=== PATIENT | female | born 1950 | race Caucasian/White ===

== ENCOUNTER 2019-12-27 17:24 | Emergency (ER) | payer MEDICARE ==
[~2019-12-27] VITALS: Ht 172.7 cm; Wt 104.3 kg
[2019-12-27 17:24] VITALS: BP_SYST 150
[2019-12-27] MEDS ORDERED: NACL 0.9% 1,000 ML IV ONE (17:29)
[2019-12-27 18:15] LABS: BASOPHILS % (AUTO) 0.7 % (0.0-2.0); EOSINOPHILS % (AUTO) 0.5 % (0.0-4.0); HEMATOCRIT 32.1 % (36-48); HEMOGLOBIN 10.3 g/dL (12.0-16.0); LYMPHOCYTES # (AUTO) 0.9 K/uL (1.0-5.5); LYMPHOCYTES % (AUTO) 14.1 % (20.5-51.5); MEAN CORPUSCULAR HEMOGLOBIN 28 pg (27-31); MEAN CORPUSCULAR HGB CONC 32 % (32-36); MEAN CORPUSCULAR VOLUME 88 fL (79.0-98.0); MONOCYTES # (AUTO) 0.7 K/uL (0.0-1.0); NEUTROPHILS # (AUTO) 4.9 K/uL (1.8-7.7); NEUTROPHILS % (AUTO) 74.7 % (40.0-70.0); PLATELET COUNT (AUTO) 262 K/uL (130-430); RED BLOOD CELL COUNT(AUTO) 3.66 MIL/uL (4.2-6.2); RED CELL DISTRIBUTION WIDTH 17.2 % (9.0-15.0); WHITE BLOOD COUNT (AUTO) 6.5 K/uL (4.8-10.8)
[2019-12-27 18:36] LABS: CALCIUM 9.6 mg/dL (8.4-11.0); CREATININE 2.54 mg/dL (0.55-1.30); POTASSIUM 3.9 mmol/L (3.5-5.1)
[2019-12-27 18:39] LABS: INR 3.3 (0.8-1.2)
[2019-12-27 18:42] LABS: TOTAL BILIRUBIN 0.8 mg/dL (0.0-1.0)
[2019-12-27 18:43] LABS: PROTHROMBIN TIME 32.4 SECS (9.5-12.5)
[2019-12-27 18:54] LABS: BILIRUBIN,URINE NEGATIVE (NEGATIVE); BLOOD, URINE 1+ (NEGATIVE); CLARITY/URINE CLEAR (CLEAR); COLOR,URINE YELLOW (YELLOW); GLUCOSE,URINE NEGATIVE (NEGATIVE); KETONES,URINE NEGATIVE (NEGATIVE); LEUKOCYTE ESTERASE ,URINE NEGATIVE (NEGATIVE); NITRITE, URINE NEGATIVE (NEGATIVE); PROTEIN URINE TRACE (NEGATIVE); UROBILINOGEN,URINE 0.2 (0.2-1.0)
[2019-12-27] MEDS ORDERED: FUROSEMIDE 40 MG/4 ML VIAL IVP ONE (19:15)
[2019-12-27] MEDS ORDERED: KETOROLAC TROMETHAMINE 30 MG VIAL IVP ONE (19:15)
[2019-12-27 19:28] LABS: BACTERIA,URINE FEW /HPF (None Seen); WBC,URINE 0-3 /HPF (0-3)
[2019-12-27 19:29] LABS: MUCUS,URINE None Seen /LPF (None Seen)
[2019-12-27 22:03] VITALS: BP_SYST 127
== END 2019-12-27 22:03 | disposition short-term general hospital (02) ==
LOC: SED 17:24
DX: I13.0 Hypertensive heart and chronic kidney disease with heart failure and stage 1 through stage 4 chronic kidney disease, or unspecified chronic kidney disease (principal); E11.22 Type 2 diabetes mellitus with diabetic chronic kidney disease; N18.9 Chronic kidney disease, unspecified; I50.9 Heart failure, unspecified; M79.18 Myalgia, other site; I48.91 Unspecified atrial fibrillation; E78.00 Pure hypercholesterolemia, unspecified; Z86.79 Personal history of other diseases of the circulatory system; Z90.49 Acquired absence of other specified parts of digestive tract; Z91.030 Bee allergy status
CPT/HCPCS: 36415; 71045; 80053; 81000; 82150; 82550; 83690; 83880; 84484; 85025; 85610; 85730; 86710; 87040; 93005; 96374; 96375; 99285; J1885; J1940; J7030

== ENCOUNTER 2020-01-16 06:37 | Emergency (ER) | payer MEDICARE ==
[~2020-01-16] VITALS: Ht 160 cm; Wt 87.1 kg
[2020-01-16 06:40] VITALS: BP_SYST 138
--- NOTE | 2020-01-16 06:45 | NUR ---
Patient to ER bed 6 to gown for evaluation. Side rails up.
--- NOTE | 2020-01-16 06:47 | NUR ---
Pt BIBA from boarding / assisted private home ( pt does not know the name ) to ED C/O L leg pain knee and below. Hx PNA, DMII, and Renal Disease. L arm has shunt but has not started any HD yet. No other complaints noted VSS no s/s of acute distress Resting on gurney rails up
--- NOTE | 2020-01-16 06:47 | NUR ---
Dr. Kessler bedside for pt eval
[2020-01-16] MEDS ORDERED: MORPHINE 2 MG/ML INJ. SYRINGE IVP ONE (07:00)
[2020-01-16] MEDS ORDERED: PRO10 PO (07:05)
[2020-01-16] MEDS ORDERED: LIP80 PO (07:06)
[2020-01-16] MEDS ORDERED: METO50TA7 PO (07:06)
[2020-01-16] MEDS ORDERED: DILT30TA36 PO (07:07)
[2020-01-16] MEDS ORDERED: FURO80TA86 PO (07:07)
[2020-01-16] MEDS ORDERED: HYDR-4272 PO (07:07)
[2020-01-16] MEDS ORDERED: AMI200 PO (07:08)
[2020-01-16] MEDS ORDERED: HYDR-4038 PO (07:08)
[2020-01-16] MEDS ORDERED: POTA10TA PO (07:08)
[2020-01-16] MEDS ORDERED: LEVO88TA5 PO (07:09)
[2020-01-16] MEDS ORDERED: CHOL100062 PO (07:10)
[2020-01-16] MEDS ORDERED: WARF5TAB2 PO (07:10)
--- NOTE | 2020-01-16 07:20 | NUR ---
report received stella Thayer RN. Pt in stable condition
--- NOTE | 2020-01-16 07:35 | NUR ---
# 22 gauge angiocath placed to right wrist. Use of asceptic technique. Opsite placed over site. Blood return noted. Blood for lab drawn from site. Flushed with 10 cc of normal saline. No evidence of infiltration noted. Patient tolerated well.
--- NOTE | 2020-01-16 07:45 | NUR ---
x-ray at the bedside.
--- NOTE | 2020-01-16 07:45 | NUR ---
medicated pt w/ IV Morphine. Will reassess
[2020-01-16 08:24] LABS: BASOPHILS # (AUTO) 0.1 K/uL (0.0-0.2); BASOPHILS % (AUTO) 1.2 % (0.0-2.0); EOSINOPHILS # (AUTO) 0.1 K/uL (0.0-0.4); EOSINOPHILS % (AUTO) 1.4 % (0.0-4.0); HEMATOCRIT 33.7 % (36-48); HEMOGLOBIN 10.9 g/dL (12.0-16.0); LYMPHOCYTES # (AUTO) 1.5 K/uL (1.0-5.5); MEAN CORPUSCULAR HEMOGLOBIN 29 pg (27-31); MEAN CORPUSCULAR HGB CONC 32 % (32-36); MEAN CORPUSCULAR VOLUME 88 fL (79.0-98.0); MONOCYTES # (AUTO) 0.9 K/uL (0.0-1.0); MONOCYTES % (AUTO) 14.5 % (1.7-9.3); NEUTROPHILS # (AUTO) 3.7 K/uL (1.8-7.7); NEUTROPHILS % (AUTO) 58.9 % (40.0-70.0); PLATELET COUNT (AUTO) 265 K/uL (130-430); RED BLOOD CELL COUNT(AUTO) 3.83 MIL/uL (4.2-6.2); RED CELL DISTRIBUTION WIDTH 17.4 % (9.0-15.0); WHITE BLOOD COUNT (AUTO) 6.3 K/uL (4.8-10.8)
[2020-01-16 08:38] LABS: ANION GAP 11 (5-15); CALCIUM 9.1 mg/dL (8.4-11.0); CHLORIDE 103 mmol/L (98-107); CREATININE 2.94 mg/dL (0.55-1.30); GLUCOSE 116 mg/dL (70-99); POTASSIUM 3.9 mmol/L (3.5-5.1); SODIUM SERUM 140 mmol/L (136-145); UREA NITROGEN, BLOOD 39 mg/dL (8-21)
[2020-01-16 08:40] LABS: GFR AFRICAN AMERICAN 20 mL/min (>90); INR 1.7 (0.8-1.2); PROTHROMBIN TIME 16.9 SECS (9.5-12.5)
[2020-01-16 08:41] LABS: ALANINE AMINOTRANSFERASE 25 U/L (12-78); ALBUMIN 2.9 g/dL (3.4-4.8); ASPARTATE AMINOTRANSFERASE 27 U/L (10-37); TOTAL BILIRUBIN 0.6 mg/dL (0.0-1.0)
[2020-01-16] MEDS ORDERED: ONDANSETRON 4 MG ODT TAB PO ONE (09:00)
--- NOTE | 2020-01-16 09:30 | NUR ---
DR FONG SPEAKING WITH DR [facility]
--- NOTE | 2020-01-16 09:30 | NUR ---
# 22 gauge angiocath placed to right chest. Use of asceptic technique. Opsite placed over site. Blood return noted. Blood for lab drawn from site. Flushed with 10 cc of normal saline. No evidence of infiltration noted. Patient tolerated well.
[2020-01-16] MEDS ORDERED: FUROSEMIDE 20 MG/2 ML VIAL IVP ONE (10:00)
--- NOTE | 2020-01-16 10:16 | NUR ---
Patient recieved lasix IVP. Will continue to monitor.
[2020-01-16 10:38] VITALS: BP_SYST 113
--- NOTE | 2020-01-16 10:43 | NUR ---
Patient to be transferred to [facility] ED. Is being transferred due to higher level of care. Receiving facility has accepting physician and available space. ER physician has signed transfer form. Patient or responsible democrat has agreed to transfer and signed form. Patient belongings inventoried and will be sent with patient. Copy of nursing notes, lab reports, EKG, Physicians Orders and X-rays to be sent with patient. Report called to Hilda at receiving facility. Receiving physician is Dr. Nascimento. [facility] ambulance service has been called for transfer. ETA is 1100.
[2020-01-16] MEDS ORDERED: MORPHINE 4 MG/ML INJ. SYRINGE IM ONE (10:45)
--- NOTE | 2020-01-16 10:54 | NUR ---
Pt currently being transported by day care center director
== END 2020-01-16 10:38 | disposition short-term general hospital (02) ==
LOC: SED 06:37
DX: I11.0 Hypertensive heart disease with heart failure (principal); I50.9 Heart failure, unspecified; E11.29 Type 2 diabetes mellitus with other diabetic kidney complication; N28.9 Disorder of kidney and ureter, unspecified; E78.00 Pure hypercholesterolemia, unspecified; I48.91 Unspecified atrial fibrillation; Z91.030 Bee allergy status
CPT/HCPCS: 36415; 71045; 73564; 80053; 83880; 84484; 85025; 85610; 85730; 93005; 93971; 96374; 96375; 96376; 99285; J1940; J2270 ×2; Q0162

== ENCOUNTER 2020-02-21 20:50 | Inpatient (IN) | payer MEDICARE, SELFPAY ==
[~2020-02-21] VITALS: Ht 160 cm; Wt 78.5 kg
[~2020-02-21 20:50] MED LIST: AMI200 PO; CHOL100062 PO; DILT30TA36 PO; FURO80TA86 PO; HYDR-4038 PO; HYDR-4272 PO; LEVO88TA5 PO; LIP80 PO; METO50TA7 PO; POTA10TA PO; PRO10 PO; WARF5TAB2 PO
[2020-02-21 20:52] VITALS: BP_SYST 131
[2020-02-21] MEDS ORDERED: MORPHINE 2 MG/ML INJ. SYRINGE IVP ONE (21:15)
[2020-02-21 21:53] LABS: BILIRUBIN,URINE NEGATIVE (NEGATIVE); CLARITY/URINE CLEAR (CLEAR); COLOR,URINE YELLOW (YELLOW); GLUCOSE,URINE NEGATIVE (NEGATIVE); KETONES,URINE NEGATIVE (NEGATIVE); LEUKOCYTE ESTERASE ,URINE NEGATIVE (NEGATIVE); NITRITE, URINE NEGATIVE (NEGATIVE); PROTEIN URINE NEGATIVE (NEGATIVE); UROBILINOGEN,URINE 0.2 (0.2-1.0)
[2020-02-21 22:07] LABS: CALCIUM 11.1 mg/dL (8.4-11.0); CREATININE 2.59 mg/dL (0.55-1.30); POTASSIUM 4.2 mmol/L (3.5-5.1)
[2020-02-21 22:13] LABS: ALBUMIN 2.2 g/dL (3.4-4.8); TOTAL BILIRUBIN 0.5 mg/dL (0.0-1.0)
[2020-02-21 22:15] LABS: BLOOD, URINE TRACE (NEGATIVE)
[2020-02-21] MEDS ORDERED: KETAMINE 30 MG/3 ML SYRINGE 30 MG in NS 100 ML IV ONE (22:30)
[2020-02-21 22:34] LABS: BACTERIA,URINE RARE /HPF (None Seen); RBC,URINE 0-3 /HPF (0-3); WBC,URINE NONE SEEN /HPF (0-3)
[2020-02-21] MEDS ORDERED: KETAMINE 30 MG/3 ML SYRINGE 15 MG in NS 100 ML IV ONE (22:45)
[2020-02-21] MEDS ORDERED: PIPERACILLIN/TAZO 3.375 GM in NS 50 ML IV ONE (22:45)
[2020-02-21 22:50] LABS: BASOPHILS # (AUTO) 0.1 K/uL (0.0-0.2); HEMOGLOBIN 10.5 g/dL (12.0-16.0); MONOCYTES # (AUTO) 0.6 K/uL (0.0-1.0); MONOCYTES % (AUTO) 13.8 % (1.7-9.3); NEUTROPHILS # (AUTO) 2.7 K/uL (1.8-7.7); WHITE BLOOD COUNT (AUTO) 4.5 K/uL (4.8-10.8)
[2020-02-21 22:53] LABS: BASOPHILS % (AUTO) 2.2 % (0.0-2.0); EOSINOPHILS # (AUTO) 0.2 K/uL (0.0-0.4); EOSINOPHILS % (AUTO) 5.5 % (0.0-4.0); HEMATOCRIT 32.5 % (36-48); LYMPHOCYTES # (AUTO) 0.9 K/uL (1.0-5.5); LYMPHOCYTES % (AUTO) 19.2 % (20.5-51.5); MEAN CORPUSCULAR HEMOGLOBIN 27 pg (27-31); MEAN CORPUSCULAR HGB CONC 32 % (32-36); MEAN CORPUSCULAR VOLUME 84 fL (79.0-98.0); NEUTROPHILS % (AUTO) 59.3 % (40.0-70.0); PLATELET COUNT (AUTO) 311 K/uL (130-430); RED BLOOD CELL COUNT(AUTO) 3.85 MIL/uL (4.2-6.2); RED CELL DISTRIBUTION WIDTH 16.1 % (9.0-15.0)
[2020-02-21] MEDS ORDERED: KETAMINE 30 MG/3 ML SYRINGE ONE (23:03)
[2020-02-21] MEDS ORDERED: PIPERACILLIN/TAZOBACTAM 3.375 GM/VIAL (ZOSYN) IV ONE (23:20)
[2020-02-21 23:30] LABS: INR 1.3 (0.8-1.2); PROTHROMBIN TIME 13.3 SECS (9.5-12.5)
[2020-02-22] VITALS (7 sets, daily range): BP systolic 102–114
[2020-02-22] MEDS ORDERED: ACETAMINOPHEN 325 MG TABLET PO PRN ×2 (00:15→09:45)
[2020-02-22] MEDS ORDERED: cefTRIAXone 1 GM IVPB PREMIX 50 ML IV SCH (00:15)
[2020-02-22] MEDS ORDERED: HYDROcodone/ACETAMIN 5-325 MG TAB (NORCO/ VICODIN) PO PRN ×2 (00:15→16:15)
[2020-02-22] MEDS ORDERED: INSULIN REGULAR, HUMAN 100 UNITS/ML, 10 ML VIAL (humuLIN R) SUBCUT PRN (00:15)
[2020-02-22] MEDS ORDERED: MORPHINE 2 MG/ML INJ. SYRINGE IVP PRN (00:15)
[2020-02-22] MEDS ORDERED: AZITHROMYCIN 500 MG in NS 250 ML IV SCH (00:15)
[2020-02-22] MEDS ORDERED: OXYC-128 PO (01:02)
[2020-02-22] MEDS ORDERED: BISA10SU61 RC (01:05)
[2020-02-22] MEDS ORDERED: PSYL1PAC8 PO (01:14)
[2020-02-22] MEDS ORDERED: POLY17PO4 PO (01:15)
[2020-02-22] MEDS ORDERED: PRED10TA PO (01:19)
[2020-02-22] MEDS ORDERED: COLC0.6T67 PO (01:20)
[2020-02-22] MEDS ORDERED: ACET-73 PO (01:22)
[2020-02-22] MEDS ORDERED: TOPXL100 PO (01:29)
[2020-02-22] MEDS ORDERED: MULT-1089 PO (01:30)
[2020-02-22] MEDS ORDERED: PATANOL OP (01:32)
[2020-02-22] MEDS ORDERED: XALEYE OP (01:32)
[2020-02-22] MEDS ORDERED: CHOL100034 PO (01:34)
[2020-02-22] MEDS ORDERED: PIPERACILLIN/TAZOBACTAM 3.375 GM/VIAL (ZOSYN) IV ONE (03:25)
[2020-02-22] MEDS: PIPERACILLIN/TAZO 3.375/DEX-IS 50 ML IV SCH ×3 (05:45→22:45)
[2020-02-22] MEDS ORDERED: LEVOTHYROXINE SODIUM 0.088 MG TABLET PO SCH (06:00)
[2020-02-22] MEDS ORDERED: hydrALAZINE HCL 25 MG TABLET PO SCH (09:00)
[2020-02-22] MEDS ORDERED: FLUoxetine HCL 10 MG CAPSULE (PROzac) PO SCH (09:00)
[2020-02-22] MEDS ORDERED: DILTIAZEM HCL 30 MG TABLET PO SCH (09:00)
[2020-02-22] MEDS ORDERED: AMIODARONE HCL 200 MG TABLET PO SCH (09:00)
[2020-02-22] MEDS ORDERED: METOPROLOL SUCCINATE 50 MG TAB.SR.24H (TOPROL XL) PO SCH (09:00)
[2020-02-22] MEDS ORDERED: FUROSEMIDE 80 MG TABLET PO SCH (09:00)
[2020-02-22] MEDS ORDERED: BISACODYL 10 MG/SUPPOSITORY RC PRN (09:45)
[2020-02-22] MEDS ORDERED: OXYCODONE/ACETAMINOPHEN 5-325 TABLET PO PRN (09:45)
[2020-02-22] MEDS ORDERED: ONDANSETRON HCL 4 MG/2 ML VIAL IVP PRN ×2 (09:45→16:15)
[2020-02-22] MEDS ORDERED: ALBUTEROL MDI INHALATION 8 GM INH INH PRN (09:45)
[2020-02-22] MEDS ORDERED: CHOLECALCIFEROL (VITAMIN D3) 2,000 UNIT TABLET PO ONE (10:30)
[2020-02-22] MEDS ORDERED: POLYETHYLENE GLYCOL 3350, 17 GM/ POWD.PACK PO ONE (10:30)
[2020-02-22] MEDS ORDERED: ENOXAPARIN SODIUM 30 MG/0.3 ML SYRINGE SUBCUT ONE (10:30)
[2020-02-22] MEDS ORDERED: MULTIVITAMINS TAB 1 TABLET PO ONE (10:30)
[2020-02-22] MEDS ORDERED: POTASSIUM CHLORIDE 10 MEQ TAB.PRT.SR PO ONE (10:30)
[2020-02-22] MEDS ORDERED: COLCHICINE 0.6 MG TABLET PO ONE (10:30)
[2020-02-22] MEDS ORDERED: PREDNISONE 20 MG TABLET PO ONE (10:30)
[2020-02-22] MEDS ORDERED: FAMOTIDINE 20 MG TABLET PO ONE (10:30)
[2020-02-22] MEDS ORDERED: METOPROLOL SUCCINATE 50 MG TAB.SR.24H (TOPROL XL) PO ONE (11:00)
[2020-02-22] MEDS: NAPHAZOLINE HCL/PHENIRAMINE 15 ML OPHT. DROPS OP SCH ×2 (11:28→22:45)
[2020-02-22] MEDS: LATANOPROST 2.5 ML DROPS (XALATAN) OP SCH (11:29)
[2020-02-22] MEDS: AZITHROMYCIN 250 MG in NS 250 ML IV SCH (11:34)
[2020-02-22] MEDS ORDERED: ACETAMINOPHEN 500 MG TABLET PO PRN (16:15)
[2020-02-22] MEDS ORDERED: ALBUTEROL SULFATE 0.083% 2.5 MG/3 ML VIAL.NEB INH PRN (16:15)
[2020-02-22] MEDS ORDERED: LORazepam 2 MG/ML VIAL IVP PRN (16:15)
[2020-02-22] MEDS ORDERED: WARFARIN SODIUM 5 MG TABLET PO SCH (18:00)
[2020-02-22] MEDS ORDERED: ATORVASTATIN 20 MG TABLET PO SCH (18:00)
[2020-02-22] MEDS: IPRATROPIUM BROM 0.5 MG/2.5 ML VIAL.NEB (ATROVENT) INH SCH ×2 (20:08→23:11)
[2020-02-22] MEDS: NORMAL SALINE 5 ML DISP.SYRIN IVF SCH (22:45)
[2020-02-22] MEDS: METOPROLOL SUCCINATE 50 MG TAB.SR.24H (TOPROL XL) PO SCH (23:20)
[2020-02-22] MEDS: HYDROcodone/ACETAMIN 10-325 MG TAB PO PRN (23:20)
[2020-02-22] MEDS: POTASSIUM CHLORIDE 10 MEQ TAB.PRT.SR PO SCH (23:20)
[2020-02-23 00:05] VITALS: BP_SYST 115
[2020-02-23] MEDS: IPRATROPIUM BROM 0.5 MG/2.5 ML VIAL.NEB (ATROVENT) INH SCH ×5 (03:00→19:37)
[2020-02-23] MEDS: PIPERACILLIN/TAZO 3.375/DEX-IS 50 ML IV SCH (06:10)
[2020-02-23] MEDS: HYDROcodone/ACETAMIN 10-325 MG TAB PO PRN ×2 (06:10→19:12)
[2020-02-23] MEDS: NORMAL SALINE 5 ML DISP.SYRIN IVF SCH ×2 (06:15→14:30)
[2020-02-23] MEDS ORDERED: PREDNISONE 20 MG TABLET PO SCH ×2 (07:45→09:00)
[2020-02-23 07:54] LABS: BASOPHILS # (AUTO) 0.1 K/uL (0.0-0.2); BASOPHILS % (AUTO) 1.6 % (0.0-2.0); EOSINOPHILS % (AUTO) 0.1 % (0.0-4.0); HEMATOCRIT 31.8 % (36-48); HEMOGLOBIN 10.3 g/dL (12.0-16.0); LYMPHOCYTES # (AUTO) 0.9 K/uL (1.0-5.5); LYMPHOCYTES % (AUTO) 23.3 % (20.5-51.5); MEAN CORPUSCULAR HEMOGLOBIN 27 pg (27-31); MEAN CORPUSCULAR HGB CONC 32 % (32-36); MEAN CORPUSCULAR VOLUME 85 fL (79.0-98.0); MONOCYTES # (AUTO) 0.3 K/uL (0.0-1.0); MONOCYTES % (AUTO) 8.5 % (1.7-9.3); NEUTROPHILS # (AUTO) 2.7 K/uL (1.8-7.7); NEUTROPHILS % (AUTO) 66.5 % (40.0-70.0); PLATELET COUNT (AUTO) 368 K/uL (130-430); RED BLOOD CELL COUNT(AUTO) 3.75 MIL/uL (4.2-6.2); RED CELL DISTRIBUTION WIDTH 16.1 % (9.0-15.0)
[2020-02-23 07:59] LABS: C-REACTIVE PROTEIN QUANT 6.6 mg/dL (0-0.5); CALCIUM 10.9 mg/dL (8.4-11.0); CREATININE 2.91 mg/dL (0.55-1.30); PHOSPHORUS 4.9 mg/dL (2.7-4.5); POTASSIUM 4.3 mmol/L (3.5-5.1); TOTAL BILIRUBIN 0.3 mg/dL (0.0-1.0)
[2020-02-23 08:00] VITALS: BP_SYST 104
[2020-02-23 08:47] LABS: ERYTHROCYTE SEDIMENTATION RATE 91 MM/HR (0-20)
[2020-02-23] MEDS: POTASSIUM CHLORIDE 10 MEQ TAB.PRT.SR PO SCH ×2 (08:59→20:12)
[2020-02-23] MEDS ORDERED: PSYLLIUM HUSK 1 PKT PACKET PO SCH (09:00)
[2020-02-23] MEDS ORDERED: ENOXAPARIN SODIUM 30 MG/0.3 ML SYRINGE SUBCUT SCH (09:00)
[2020-02-23] MEDS ORDERED: CHOLECALCIFEROL (VITAMIN D3) 2,000 UNIT TABLET PO SCH ×2 (09:00)
[2020-02-23] MEDS ORDERED: FAMOTIDINE 20 MG TABLET PO SCH (09:00)
[2020-02-23] MEDS ORDERED: MULTIVITAMINS TAB 1 TABLET PO SCH (09:00)
[2020-02-23] MEDS ORDERED: COLCHICINE 0.6 MG TABLET PO SCH (09:00)
[2020-02-23] MEDS ORDERED: POLYETHYLENE GLYCOL 3350, 17 GM/ POWD.PACK PO SCH (09:00)
[2020-02-23] MEDS: METOPROLOL SUCCINATE 50 MG TAB.SR.24H (TOPROL XL) PO SCH ×2 (09:01→20:12)
[2020-02-23] MEDS: LATANOPROST 2.5 ML DROPS (XALATAN) OP SCH (09:01)
[2020-02-23] MEDS: NAPHAZOLINE HCL/PHENIRAMINE 15 ML OPHT. DROPS OP SCH ×2 (09:02→20:13)
[2020-02-23] MEDS: AZITHROMYCIN 250 MG in NS 250 ML IV SCH (11:34)
[2020-02-23 12:00] VITALS: BP_SYST 106
[2020-02-23] MEDS ORDERED: cefTRIAXone 1 GM in D5W 50 ML IV SCH (13:30)
[2020-02-23] MEDS ORDERED: NACL 0.9% 1,000 ML IV SCH (15:37)
[2020-02-23 16:29] VITALS: BP_SYST 114
[2020-02-23 17:58] VITALS: BP_SYST 114
[2020-02-23 19:30] VITALS: BP_SYST 130
== END 2020-02-23 20:34 | disposition short-term general hospital (02) | DRG 177 ==
LOC: SED 20:50 → STU 23:18 → EEVIPCON 23:18 → STU 23:42 → SMU 02-23 14:27 → STU 02-23 16:58
PROVIDERS: ADMIT Preventive Medicine Preventive Medicine/Occupational Environmental Medicine; ATTEND Preventive Medicine Preventive Medicine/Occupational Environmental Medicine
DX: J69.0 Pneumonitis due to inhalation of food and vomit (principal); J96.01 Acute respiratory failure with hypoxia; R65.11 Systemic inflammatory response syndrome (SIRS) of non-infectious origin with acute organ dysfunction; N17.9 Acute kidney failure, unspecified; E87.1 Hypo-osmolality and hyponatremia; I13.0 Hypertensive heart and chronic kidney disease with heart failure and stage 1 through stage 4 chronic kidney disease, or unspecified chronic kidney disease; I42.9 Cardiomyopathy, unspecified; D68.9 Coagulation defect, unspecified; E03.9 Hypothyroidism, unspecified; E11.22 Type 2 diabetes mellitus with diabetic chronic kidney disease; E66.9 Obesity, unspecified; E78.00 Pure hypercholesterolemia, unspecified; E78.5 Hyperlipidemia, unspecified; E83.52 Hypercalcemia; I48.0 Paroxysmal atrial fibrillation; I50.9 Heart failure, unspecified; M10.9 Gout, unspecified; M17.11 Unilateral primary osteoarthritis, right knee; Z96.651 Presence of right artificial knee joint; E83.41 Hypermagnesemia; E83.39 Other disorders of phosphorus metabolism; E11.65 Type 2 diabetes mellitus with hyperglycemia; M25.462 Effusion, left knee; F29 Unspecified psychosis not due to a substance or known physiological condition; N18.9 Chronic kidney disease, unspecified; I45.81 Long QT syndrome; G89.29 Other chronic pain; R74.0 Nonspecific elevation of levels of transaminase and lactic acid dehydrogenase [LDH]; Z20.828 Contact with and (suspected) exposure to other viral communicable diseases; Z79.01 Long term (current) use of anticoagulants; Z86.73 Personal history of transient ischemic attack (TIA), and cerebral infarction without residual deficits; Z91.030 Bee allergy status; Z88.8 Allergy status to other drugs, medicaments and biological substances; Z68.30 Body mass index [BMI] 30.0-30.9, adult; Z79.1 Long term (current) use of non-steroidal anti-inflammatories (NSAID); Z79.899 Other long term (current) drug therapy
CPT/HCPCS: 36415; 36600; 71045; 73564; 80053; 81000-TC; 82550-TC; 82728; 82803-TC; 83605; 83615-TC; 83735-TC; 83880; 84100-TC; 84484; 85025; 85379; 85384-TC; 85610-TC; 85651-TC; 85730-TC; 86140; 86710; 87040-TC; 87081; 87086; 93005; 93306; 94640; 94760; 96365; 96375; 99291; G0378; J0456; J0696; J1650; J2270; J2405; J2543; J7030; J7050; J7060; J7512; U0002; U0003-CS

== ENCOUNTER 2021-01-03 09:02 | Emergency (ER) | payer MEDICARE, SELFPAY ==
[~2021-01-03] VITALS: Ht 160 cm; Wt 79.4 kg
[2021-01-03 09:02] VITALS: BP_SYST 142
[~2021-01-03 09:02] MED LIST changes: +ACET-73 PO; -AMI200 PO; +AMIO200T66 PO; +BISA10SU61 RC; +CHOL100034 PO; +COLC0.6T67 PO; -METO50TA7 PO; +MULT-1089 PO; +OXYC-128 PO; +PATANOL OP; +POLY17PO4 PO; +PRED10TA PO; +PSYL1PAC8 PO; +TOPXL100 PO; +XALEYE OP
[2021-01-03 10:07] LABS: BASOPHILS # (AUTO) 0.1 K/uL (0.0-0.2); BASOPHILS % (AUTO) 2.4 % (0.0-2.0); EOSINOPHILS # (AUTO) 0.4 K/uL (0.0-0.4); EOSINOPHILS % (AUTO) 8.5 % (0.0-4.0); HEMATOCRIT 29.2 % (36-48); HEMOGLOBIN 9.7 g/dL (12.0-16.0); LYMPHOCYTES # (AUTO) 0.9 K/uL (1.0-5.5); LYMPHOCYTES % (AUTO) 18.4 % (20.5-51.5); MEAN CORPUSCULAR HEMOGLOBIN 32 pg (27-31); MEAN CORPUSCULAR HGB CONC 33 % (32-36); MEAN CORPUSCULAR VOLUME 96 fL (79.0-98.0); MONOCYTES # (AUTO) 0.4 K/uL (0.0-1.0); MONOCYTES % (AUTO) 8.4 % (1.7-9.3); NEUTROPHILS # (AUTO) 3.1 K/uL (1.8-7.7); NEUTROPHILS % (AUTO) 62.3 % (40.0-70.0); PLATELET COUNT (AUTO) 211 K/uL (130-430); RED BLOOD CELL COUNT(AUTO) 3.05 MIL/uL (4.2-6.2); RED CELL DISTRIBUTION WIDTH 13.9 % (9.0-15.0)
[2021-01-03 10:17] LABS: ANION GAP 11 (5-15); CALCIUM 9.7 mg/dL (8.4-11.0); CHLORIDE 103 mmol/L (98-107); CREATININE 3.83 mg/dL (0.55-1.30); GLUCOSE 145 mg/dL (70-99); SODIUM SERUM 139 mmol/L (136-145); UREA NITROGEN, BLOOD 71 mg/dL (8-21)
[2021-01-03 10:20] LABS: INR 1.1 (0.8-1.2); PROTHROMBIN TIME 11.2 SECS (9.5-12.5)
[2021-01-03 10:26] LABS: ALANINE AMINOTRANSFERASE 14 U/L (12-78); ALBUMIN 2.8 g/dL (3.4-4.8); ASPARTATE AMINOTRANSFERASE 13 U/L (10-37); LIPASE 135 U/L (73-393); TOTAL BILIRUBIN 0.3 mg/dL (0.0-1.0)
[2021-01-03] MEDS: ASPIRIN 81 MG TAB.CHEW PO ONE (10:30)
[2021-01-03 10:33] LABS: BILIRUBIN,URINE NEGATIVE (NEGATIVE); CLARITY/URINE CLEAR (CLEAR); COLOR,URINE YELLOW (YELLOW); GLUCOSE,URINE NEGATIVE (NEGATIVE); KETONES,URINE NEGATIVE (NEGATIVE); LEUKOCYTE ESTERASE ,URINE NEGATIVE (NEGATIVE); NITRITE, URINE NEGATIVE (NEGATIVE); PH,URINE 5.5 (5.0-8.0); PROTEIN URINE TRACE (NEGATIVE); UROBILINOGEN,URINE 0.2 (0.2-1.0)
[2021-01-03 10:54] LABS: BLOOD, URINE TRACE (NEGATIVE)
[2021-01-03 11:03] LABS: BACTERIA,URINE FEW /HPF (None Seen); COARSE GRANULAR CASTS,URINE 0-10 /LPF (None Seen); WBC,URINE 0-3 /HPF (0-3)
[2021-01-03 14:40] VITALS: BP_SYST 128
== END 2021-01-03 14:40 | disposition designated cancer center or children's hospital (05) ==
LOC: SED 09:02
DX: J96.01 Acute respiratory failure with hypoxia (principal); N19 Unspecified kidney failure; Z20.822 Contact with and (suspected) exposure to COVID-19
CPT/HCPCS: 36415; 71045; 80053; 81000-TC; 82962; 83690-TC; 83880; 84484; 85025; 85610-TC; 93005; 99285

== ENCOUNTER 2021-01-07 20:21 | Emergency (ER) | payer MEDICARE, SELFPAY ==
[~2021-01-07] VITALS: Ht 160 cm; Wt 44.5 kg
[2021-01-07 20:33] VITALS: BP_SYST 131
[2021-01-07 21:19] LABS: ANION GAP 8 (5-15); CALCIUM 9.7 mg/dL (8.4-11.0); CHLORIDE 97 mmol/L (98-107); CREATININE 2.03 mg/dL (0.55-1.30); GLUCOSE 146 mg/dL (70-99); POTASSIUM 3.3 mmol/L (3.5-5.1); SODIUM SERUM 140 mmol/L (136-145); UREA NITROGEN, BLOOD 11 mg/dL (8-21)
[2021-01-07 21:22] LABS: BASOPHILS # (AUTO) 0.1 K/uL (0.0-0.2); BASOPHILS % (AUTO) 1.5 % (0.0-2.0); EOSINOPHILS # (AUTO) 0.3 K/uL (0.0-0.4); EOSINOPHILS % (AUTO) 6.2 % (0.0-4.0); HEMATOCRIT 31.6 % (36-48); HEMOGLOBIN 10.3 g/dL (12.0-16.0); LYMPHOCYTES # (AUTO) 0.9 K/uL (1.0-5.5); LYMPHOCYTES % (AUTO) 16.2 % (20.5-51.5); MEAN CORPUSCULAR HEMOGLOBIN 31 pg (27-31); MEAN CORPUSCULAR HGB CONC 33 % (32-36); MEAN CORPUSCULAR VOLUME 94 fL (79.0-98.0); MONOCYTES # (AUTO) 0.5 K/uL (0.0-1.0); MONOCYTES % (AUTO) 8.8 % (1.7-9.3); NEUTROPHILS # (AUTO) 3.6 K/uL (1.8-7.7); NEUTROPHILS % (AUTO) 67.3 % (40.0-70.0); PLATELET COUNT (AUTO) 234 K/uL (130-430); RED BLOOD CELL COUNT(AUTO) 3.36 MIL/uL (4.2-6.2); RED CELL DISTRIBUTION WIDTH 13.9 % (9.0-15.0); WHITE BLOOD COUNT (AUTO) 5.3 K/uL (4.8-10.8)
[2021-01-07 21:24] LABS: ALANINE AMINOTRANSFERASE 20 U/L (12-78); ALBUMIN 3.2 g/dL (3.4-4.8); ASPARTATE AMINOTRANSFERASE 17 U/L (10-37); TOTAL BILIRUBIN 0.4 mg/dL (0.0-1.0)
[2021-01-07] MEDS ORDERED: NACL 0.9% 1,000 ML IV ONE (21:45)
[2021-01-07 21:48] LABS: INR 1.1 (0.8-1.2); PROTHROMBIN TIME 11.3 SECS (9.5-12.5)
[2021-01-07 23:35] LABS: BILIRUBIN,URINE NEGATIVE (NEGATIVE); CLARITY/URINE CLEAR (CLEAR); COLOR,URINE YELLOW (YELLOW); GLUCOSE,URINE NEGATIVE (NEGATIVE); KETONES,URINE NEGATIVE (NEGATIVE); LEUKOCYTE ESTERASE ,URINE NEGATIVE (NEGATIVE); NITRITE, URINE NEGATIVE (NEGATIVE); PROTEIN URINE TRACE (NEGATIVE); UROBILINOGEN,URINE 0.2 (0.2-1.0)
[2021-01-07 23:36] LABS: BLOOD, URINE TRACE (NEGATIVE)
[2021-01-07 23:40] LABS: BACTERIA,URINE RARE /HPF (None Seen); WBC,URINE 0-3 /HPF (0-3)
[2021-01-08] MEDS ORDERED: MINERAL OIL 133 ML ENEMA RC ONE
[2021-01-08] MEDS ORDERED: POLYETHYLENE GLYCOL 3350, 17 GM/ POWD.PACK PO ONE
[2021-01-08] MEDS ORDERED: POLY17PO4 PO (00:19)
[2021-01-08] MEDS ORDERED: FLEETMO RC (00:20)
[2021-01-08 02:45] VITALS: BP_SYST 131
== END 2021-01-08 02:45 | disposition home or self-care (01) ==
LOC: SED 20:21
DX: K59.00 Constipation, unspecified (principal); D64.9 Anemia, unspecified; R10.9 Unspecified abdominal pain; I10 Essential (primary) hypertension; E78.00 Pure hypercholesterolemia, unspecified; E11.29 Type 2 diabetes mellitus with other diabetic kidney complication; N28.9 Disorder of kidney and ureter, unspecified; Z79.899 Other long term (current) drug therapy; Z91.030 Bee allergy status; Z20.822 Contact with and (suspected) exposure to COVID-19
CPT/HCPCS: 36415; 74176; 76376; 80053; 81000; 83690; 85025; 85610; 85730; 87426; 93005; 96360; 96361 ×2; 99285; J7030

== ENCOUNTER 2021-06-06 15:16 | Emergency (ER) | payer MEDICARE, SELFPAY ==
[~2021-06-06] VITALS: Ht 167.6 cm; Wt 81.6 kg
[~2021-06-06 15:16] MED LIST changes: +FLEETMO RC
[2021-06-06 15:22] VITALS: BP_SYST 101
[2021-06-06 16:26] LABS: BASOPHILS % (AUTO) 1.1 % (0.0-2.0); EOSINOPHILS # (AUTO) 0.1 K/uL (0.0-0.4); HEMATOCRIT 30.3 % (36-48); HEMOGLOBIN 10.1 g/dL (12.0-16.0); MEAN CORPUSCULAR HEMOGLOBIN 32 pg (27-31); MEAN CORPUSCULAR HGB CONC 33 % (32-36); MEAN CORPUSCULAR VOLUME 97 fL (79.0-98.0); MONOCYTES # (AUTO) 0.5 K/uL (0.0-1.0); MONOCYTES % (AUTO) 10.1 % (1.7-9.3); NEUTROPHILS # (AUTO) 2.9 K/uL (1.8-7.7); NEUTROPHILS % (AUTO) 62.8 % (40.0-70.0); PLATELET COUNT (AUTO) 179 K/uL (130-430); RED BLOOD CELL COUNT(AUTO) 3.14 MIL/uL (4.2-6.2); RED CELL DISTRIBUTION WIDTH 14.2 % (9.0-15.0); WHITE BLOOD COUNT (AUTO) 4.6 K/uL (4.8-10.8)
[2021-06-06 16:57] LABS: ANION GAP 4 (5-15); CHLORIDE 99 mmol/L (98-107); CREATININE 2.23 mg/dL (0.55-1.30); GLUCOSE 86 mg/dL (70-99); POTASSIUM 3.2 mmol/L (3.5-5.1); SODIUM SERUM 139 mmol/L (136-145); UREA NITROGEN, BLOOD 18 mg/dL (8-21)
[2021-06-06 17:03] LABS: ALANINE AMINOTRANSFERASE 15 U/L (12-78); ASPARTATE AMINOTRANSFERASE 19 U/L (10-37); TOTAL BILIRUBIN 0.2 mg/dL (0.0-1.0)
[2021-06-06 18:22] LABS: PROTHROMBIN TIME 10.5 SECS (9.5-12.5)
[2021-06-06 19:22] VITALS: BP_SYST 111
== END 2021-06-06 19:22 | disposition home or self-care (01) ==
LOC: SED 15:16
DX: R07.89 Other chest pain (principal); I12.0 Hypertensive chronic kidney disease with stage 5 chronic kidney disease or end stage renal disease; E11.22 Type 2 diabetes mellitus with diabetic chronic kidney disease; N18.6 End stage renal disease; E78.00 Pure hypercholesterolemia, unspecified; Z88.8 Allergy status to other drugs, medicaments and biological substances; Z79.899 Other long term (current) drug therapy; Z99.2 Dependence on renal dialysis
CPT/HCPCS: 36415; 71045; 80053; 83880; 84484; 85025; 85610-TC; 93005; 99285

== ENCOUNTER 2021-06-12 13:31 | Emergency (ER) | payer MEDICARE ==
[~2021-06-12] VITALS: Ht 160 cm; Wt 81.6 kg
[2021-06-12 13:37] VITALS: BP_SYST 97
--- NOTE | 2021-06-12 13:37 | NUR ---
PT TO BED 4, GOWNED AND ATTACHED TO OPTICAL INSTRUMENTS SUPERVISOR.
--- NOTE | 2021-06-12 14:00 | NUR ---
Pt. [facility] with c/o swelling and pain 05/24 to left arm, arm visibly swollen and warm to the touch, pt. does have shunt for dialysis in the left arm and states it was used sunday with no problems.
--- NOTE | 2021-06-12 14:37 | NUR ---
ER at bedside examining patient.
[2021-06-12] MEDS ORDERED: ACETAMINOPHEN 325 MG TABLET PO ONE (15:00)
--- NOTE | 2021-06-12 15:25 | NUR ---
tylenol given for arm pain 04/23 per pt. request
[2021-06-12 15:35] LABS: BASOPHILS # (AUTO) 0.1 K/uL (0.0-0.2); BASOPHILS % (AUTO) 0.8 % (0.0-2.0); EOSINOPHILS # (AUTO) 0.1 K/uL (0.0-0.4); EOSINOPHILS % (AUTO) 2.3 % (0.0-4.0); HEMATOCRIT 29.7 % (36-48); HEMOGLOBIN 9.8 g/dL (12.0-16.0); LYMPHOCYTES % (AUTO) 15.5 % (20.5-51.5); MEAN CORPUSCULAR HEMOGLOBIN 32 pg (27-31); MEAN CORPUSCULAR HGB CONC 33 % (32-36); MEAN CORPUSCULAR VOLUME 98 fL (79.0-98.0); MONOCYTES # (AUTO) 0.6 K/uL (0.0-1.0); MONOCYTES % (AUTO) 9.1 % (1.7-9.3); NEUTROPHILS # (AUTO) 4.7 K/uL (1.8-7.7); NEUTROPHILS % (AUTO) 72.3 % (40.0-70.0); PLATELET COUNT (AUTO) 166 K/uL (130-430); RED BLOOD CELL COUNT(AUTO) 3.02 MIL/uL (4.2-6.2); RED CELL DISTRIBUTION WIDTH 13.9 % (9.0-15.0); WHITE BLOOD COUNT (AUTO) 6.5 K/uL (4.8-10.8)
[2021-06-12 15:40] LABS: ANION GAP 4 (5-15); CALCIUM 9.8 mg/dL (8.4-11.0); CHLORIDE 101 mmol/L (98-107); CREATININE 4.44 mg/dL (0.55-1.30); GLUCOSE 122 mg/dL (70-99); POTASSIUM 4.1 mmol/L (3.5-5.1); SODIUM SERUM 139 mmol/L (136-145); UREA NITROGEN, BLOOD 45 mg/dL (8-21)
[2021-06-12 15:45] LABS: ALANINE AMINOTRANSFERASE 11 U/L (12-78); ALBUMIN 2.9 g/dL (3.4-4.8); ASPARTATE AMINOTRANSFERASE 12 U/L (10-37); TOTAL BILIRUBIN 0.4 mg/dL (0.0-1.0)
--- NOTE | 2021-06-12 15:56 | NUR ---
radiology at bedside for venous study
[2021-06-12 16:29] LABS: PROTHROMBIN TIME 10.9 SECS (9.5-12.5)
[2021-06-12] MEDS ORDERED: MORPHINE 4 MG INJ. 4 MG/ML VIAL IM ONE (16:45)
--- NOTE | 2021-06-12 16:48 | NUR ---
PT. C/O PAIN 05/24 TYLENOL HAD NO EFFECT NOTIFIED DR. FELIZ
--- NOTE | 2021-06-12 18:28 | NUR ---
pt. cleaned post urinary incontinence and BM, after stated having severe chest pain, notified Dr. Topete, troponin and EKG ordered, Dr. Topete at bedside reviewing POC.
--- NOTE | 2021-06-12 18:32 | NUR ---
lab here to draw troponin, pt. states chest pain 07/24, on phone playing [email or web address], no apparant distress
--- NOTE | 2021-06-12 18:54 | NUR ---
Pt. states chest pain has passed.
--- NOTE | 2021-06-12 19:30 | NUR ---
PT MOVED TO HALLWAY. PT IS RESTING QUIETLY IN NO DISTRESS.
--- NOTE | 2021-06-12 20:57 | NUR ---
COVID-19 rapid swabs collected and sent to lab.
[2021-06-12] MEDS ORDERED: ASPIRIN 325 MG TABLET PO ONE (21:15)
[2021-06-12] MEDS ORDERED: NITROGLYCERIN 1 INCH (GM) OINT. TP ONE (21:30)
--- NOTE | 2021-06-12 21:44 | NUR ---
ADMINISTERED NTG PASTE PER ORDER FOR CHEST PAIN 6/10 PAIN.
--- NOTE | 2021-06-12 22:30 | NUR ---
PT RESTING QUIETLY IN NO DISTRESS AWAITING TRANSFER TO [facility].
[2021-06-12] MEDS ORDERED: MORPHINE 4 MG INJ. 4 MG/ML VIAL ONE (23:40)
[2021-06-12] MEDS ORDERED: MORPHINE 4 MG INJ. 4 MG/ML VIAL IVP ONE (23:45)
[2021-06-13 00:20] VITALS: BP_SYST 122
--- NOTE | 2021-06-13 00:20 | NUR ---
Patient to be transferred to [facility]. Is being transferred due to higher level of care. Receiving facility has accepting physician and available space. ER physician has signed transfer form. Patient or responsible constitution party has agreed to transfer and signed form. Patient belongings inventoried and will be sent with patient. Copy of nursing notes, lab reports, EKG, Physicians Orders and X-rays to be sent with patient. Report called to at receiving facility. Receiving physician is ambulance service has been called for transfer. ETA is 0030.
== END 2021-06-13 00:20 | disposition short-term general hospital (02) ==
LOC: SED 13:31
DX: R07.9 Chest pain, unspecified (principal); M79.602 Pain in left arm; E11.22 Type 2 diabetes mellitus with diabetic chronic kidney disease; I12.0 Hypertensive chronic kidney disease with stage 5 chronic kidney disease or end stage renal disease; N18.6 End stage renal disease; Z99.2 Dependence on renal dialysis; E78.00 Pure hypercholesterolemia, unspecified; Z79.899 Other long term (current) drug therapy; Z91.030 Bee allergy status; Z20.822 Contact with and (suspected) exposure to COVID-19
CPT/HCPCS: 36415; 71045; 76376; 80053; 84484; 85025; 85610; 87426; 93005; 93971; 96372; 96374; 99285; J2270

== ENCOUNTER 2021-06-17 15:49 | Emergency (ER) | payer MEDICARE ==
[~2021-06-17] VITALS: Ht 160 cm; Wt 101.2 kg
--- NOTE | 2021-06-17 16:07 | NUR ---
Placed in room 6 . Placed on school lunch monitor, blood pressure machine and pulse oximeter. To gown for exam. Side rails up.
--- NOTE | 2021-06-17 16:10 | NUR ---
Pt bib ambulance for left armpit pain 8/10 with swelling to the left extremity. Pt reports pain started yesterday afternoon and swelling started yesterday night. Pt denies fall and no trauma noted. Pt AAOX4 speaking full sentences. Pt attached to monitor resting in [facility]. Addendum: 06/17/21 at 1629 by HONGEDND Pt bib ambulance for left armpit pain 8/10 with swelling to the left extremity. Pt reports pain started yesterday afternoon and swelling started yesterday night. Pt denies fall and no trauma noted. Pt AAOX4 speaking full sentences. Pt attached to monitor resting in [facility]. Pt presenting with left arm dialysis shunt. Pt last dialysis was yesterday.
[2021-06-17 16:12] VITALS: BP_SYST 118
--- NOTE | 2021-06-17 16:12 | NUR ---
ER at bedside examining patient.
--- NOTE | 2021-06-17 16:43 | NUR ---
Lab at [facility].
[2021-06-17 17:02] LABS: ANION GAP 8 (5-15); CALCIUM 9.7 mg/dL (8.4-11.0); CHLORIDE 97 mmol/L (98-107); CREATININE 5.24 mg/dL (0.55-1.30); GLUCOSE 138 mg/dL (70-99); POTASSIUM 4.2 mmol/L (3.5-5.1); SODIUM SERUM 133 mmol/L (136-145); UREA NITROGEN, BLOOD 53 mg/dL (8-21)
[2021-06-17 17:03] LABS: BASOPHILS # (AUTO) 0.1 K/uL (0.0-0.2); BASOPHILS % (AUTO) 0.8 % (0.0-2.0); EOSINOPHILS # (AUTO) 0.1 K/uL (0.0-0.4); EOSINOPHILS % (AUTO) 2.1 % (0.0-4.0); HEMATOCRIT 26.4 % (36-48); HEMOGLOBIN 8.9 g/dL (12.0-16.0); LYMPHOCYTES # (AUTO) 0.9 K/uL (1.0-5.5); LYMPHOCYTES % (AUTO) 14.7 % (20.5-51.5); MEAN CORPUSCULAR HEMOGLOBIN 33 pg (27-31); MEAN CORPUSCULAR HGB CONC 34 % (32-36); MEAN CORPUSCULAR VOLUME 98 fL (79.0-98.0); MONOCYTES # (AUTO) 0.5 K/uL (0.0-1.0); NEUTROPHILS # (AUTO) 4.4 K/uL (1.8-7.7); NEUTROPHILS % (AUTO) 73.4 % (40.0-70.0); PLATELET COUNT (AUTO) 152 K/uL (130-430); RED CELL DISTRIBUTION WIDTH 13.4 % (9.0-15.0)
[2021-06-17 17:08] LABS: ALANINE AMINOTRANSFERASE 17 U/L (12-78); ALBUMIN 3.1 g/dL (3.4-4.8); ASPARTATE AMINOTRANSFERASE 14 U/L (10-37); TOTAL BILIRUBIN 0.3 mg/dL (0.0-1.0)
--- NOTE | 2021-06-17 17:47 | NUR ---
Pt resting in [facility] VSS no distress noted attached to monitor with side rails up.
--- NOTE | 2021-06-17 19:21 | NUR ---
Care endorsed to Carlos REYNA.
--- NOTE | 2021-06-17 19:27 | NUR ---
assumed care of pt from evie segal
--- NOTE | 2021-06-17 19:28 | NUR ---
pt awaiting transport to be sent by [facility] for transfer back to her board and care.
--- NOTE | 2021-06-17 19:39 | NUR ---
spoke with STEFAN at [facility], aware of her arrival. spoke with patient as well.
[2021-06-17 20:35] VITALS: BP_SYST 129
--- NOTE | 2021-06-17 20:38 | NUR ---
Patient given written and verbal discharge instructions and verbalizes understanding. ER MD discussed with patient the results and treatment provided. Patient in stable condition. ID arm band removed. Patient educated on pain management and to follow up with PMD. Pain Scale 3/10. Opportunity for questions provided and answered. Medication side effect fact sheet provided.
== END 2021-06-17 20:38 | disposition home or self-care (01) ==
LOC: SED 15:49
DX: T82.848A Pain due to vascular prosthetic devices, implants and grafts, initial encounter (principal); M79.602 Pain in left arm; E11.22 Type 2 diabetes mellitus with diabetic chronic kidney disease; I12.0 Hypertensive chronic kidney disease with stage 5 chronic kidney disease or end stage renal disease; N18.6 End stage renal disease; E78.00 Pure hypercholesterolemia, unspecified; I48.91 Unspecified atrial fibrillation; Z99.2 Dependence on renal dialysis; Z91.030 Bee allergy status; Z79.899 Other long term (current) drug therapy
CPT/HCPCS: 36415; 80053; 85025; 93005; 93971; 99284

== ENCOUNTER 2021-07-06 08:34 | Emergency (ER) | payer MEDICARE, SELFPAY ==
[~2021-07-06] VITALS: Ht 162.6 cm; Wt 90.7 kg
[2021-07-06 08:34] VITALS: BP_SYST 135
[2021-07-06 09:12] LABS: EOSINOPHILS # (AUTO) 0.1 K/uL (0.0-0.4); EOSINOPHILS % (AUTO) 1.3 % (0.0-4.0); HEMATOCRIT 31.9 % (36-48); HEMOGLOBIN 10.5 g/dL (12.0-16.0); LYMPHOCYTES # (AUTO) 0.7 K/uL (1.0-5.5); LYMPHOCYTES % (AUTO) 18.5 % (20.5-51.5); MEAN CORPUSCULAR HEMOGLOBIN 32 pg (27-31); MEAN CORPUSCULAR HGB CONC 33 % (32-36); MEAN CORPUSCULAR VOLUME 98 fL (79.0-98.0); MONOCYTES # (AUTO) 0.4 K/uL (0.0-1.0); MONOCYTES % (AUTO) 9.4 % (1.7-9.3); PLATELET COUNT (AUTO) 149 K/uL (130-430); RED BLOOD CELL COUNT(AUTO) 3.25 MIL/uL (4.2-6.2); RED CELL DISTRIBUTION WIDTH 13.7 % (9.0-15.0)
[2021-07-06 09:13] LABS: BASOPHILS % (AUTO) 0.4 % (0.0-2.0); NEUTROPHILS # (AUTO) 2.9 K/uL (1.8-7.7); NEUTROPHILS % (AUTO) 70.4 % (40.0-70.0)
[2021-07-06 09:30] LABS: ANION GAP 9 (5-15); CALCIUM 9.3 mg/dL (8.4-11.0); CHLORIDE 98 mmol/L (98-107); CREATININE 3.27 mg/dL (0.55-1.30); GLUCOSE 109 mg/dL (70-99); POTASSIUM 3.6 mmol/L (3.5-5.1); SODIUM SERUM 137 mmol/L (136-145); UREA NITROGEN, BLOOD 25 mg/dL (8-21)
[2021-07-06 09:32] LABS: INR 1.7 (0.8-1.2); PROTHROMBIN TIME 17.6 SECS (9.5-12.5)
[2021-07-06 09:40] LABS: ALANINE AMINOTRANSFERASE 22 U/L (12-78); ALBUMIN 3.5 g/dL (3.4-4.8); ASPARTATE AMINOTRANSFERASE 21 U/L (10-37); TOTAL BILIRUBIN 0.5 mg/dL (0.0-1.0)
[2021-07-06 12:22] VITALS: BP_SYST 134
== END 2021-07-06 12:16 | disposition home or self-care (01) ==
LOC: SED 08:34
DX: J96.10 Chronic respiratory failure, unspecified whether with hypoxia or hypercapnia (principal); I48.20 Chronic atrial fibrillation, unspecified; I12.9 Hypertensive chronic kidney disease with stage 1 through stage 4 chronic kidney disease, or unspecified chronic kidney disease; E11.22 Type 2 diabetes mellitus with diabetic chronic kidney disease; N18.9 Chronic kidney disease, unspecified; D53.9 Nutritional anemia, unspecified; E78.00 Pure hypercholesterolemia, unspecified; Z88.8 Allergy status to other drugs, medicaments and biological substances; Z91.030 Bee allergy status; Z79.899 Other long term (current) drug therapy
CPT/HCPCS: 36415; 36600; 71045; 80053; 82803-TC; 83605; 83880; 84484; 85025; 85610-TC; 85730-TC; 87040-TC; 93005; 99285

== ENCOUNTER 2022-03-20 07:16 | Emergency (ER) | payer MEDICARE ==
[~2022-03-20] VITALS: Ht 162.6 cm; Wt 90.7 kg
[2022-03-20 07:25] VITALS: BP_SYST 131
--- NOTE | 2022-03-20 07:25 | NUR ---
Placed in room 8 . Placed on cardiac nurse practitioner, blood pressure machine and pulse oximeter. To gown for exam. Side rails up. Report given to MARIBELL URIARTE.
--- NOTE | 2022-03-20 07:28 | NUR ---
Assumed care of patient who was BIBA from board and care c/o abdominal pain 02/21 and n/v. Patient states she was seen at [facility] in [place] on Sunday and told her symptoms were related to COVID. Patient is A&Ox4, VS WNL. Patient shows no signs of acute distress. Patient is resting on gurney with appropriate side rails raised.
--- NOTE | 2022-03-20 07:30 | NUR ---
ER DR. HERNÁNDEZ AT THE BEDSIDE EXAMINING PT
[2022-03-20] MEDS ORDERED: ONDANSETRON HCL 4 MG/2 ML VIAL IVP ONE (07:45)
[2022-03-20] MEDS ORDERED: KETOROLAC TROMETHAMINE 30 MG VIAL IVP ONE (07:45)
[2022-03-20 08:13] LABS: BASOPHILS # (AUTO) 0.1 K/uL (0.0-0.2); BASOPHILS % (AUTO) 1.4 % (0.0-2.0); EOSINOPHILS # (AUTO) 0.4 K/uL (0.0-0.4); EOSINOPHILS % (AUTO) 8.3 % (0.0-4.0); HEMATOCRIT 23.6 % (36-48); HEMOGLOBIN 7.9 g/dL (12.0-16.0); LYMPHOCYTES # (AUTO) 0.7 K/uL (1.0-5.5); LYMPHOCYTES % (AUTO) 12.8 % (20.5-51.5); MEAN CORPUSCULAR HEMOGLOBIN 31 pg (27-31); MEAN CORPUSCULAR HGB CONC 33 % (32-36); MEAN CORPUSCULAR VOLUME 93 fL (79.0-98.0); MONOCYTES # (AUTO) 0.6 K/uL (0.0-1.0); MONOCYTES % (AUTO) 12.5 % (1.7-9.3); NEUTROPHILS # (AUTO) 3.3 K/uL (1.8-7.7); PLATELET COUNT (AUTO) 231 K/uL (130-430); RED BLOOD CELL COUNT(AUTO) 2.54 MIL/uL (4.2-6.2); RED CELL DISTRIBUTION WIDTH 13.5 % (9.0-15.0); WHITE BLOOD COUNT (AUTO) 5.1 K/uL (4.8-10.8)
[2022-03-20 08:25] LABS: ANION GAP 7 (5-15); CALCIUM 10.5 mg/dL (8.4-11.0); CHLORIDE 99 mmol/L (98-107); CREATININE 4.69 mg/dL (0.55-1.30); GLUCOSE 127 mg/dL (70-99); SODIUM SERUM 135 mmol/L (136-145); UREA NITROGEN, BLOOD 53 mg/dL (8-21)
[2022-03-20 08:26] LABS: ALANINE AMINOTRANSFERASE 7 U/L (12-78); ALBUMIN 2.4 g/dL (3.4-4.8); ASPARTATE AMINOTRANSFERASE 12 U/L (10-37); LIPASE 362 U/L (73-393); TOTAL BILIRUBIN 0.1 mg/dL (0.0-1.0)
[2022-03-20] MEDS ORDERED: LACT10SO6 PO (11:41)
[2022-03-20] MEDS ORDERED: MORPHINE 4 MG INJ. 4 MG/ML VIAL IVP ONE (12:00)
[2022-03-20 12:18] VITALS: BP_SYST 101
--- NOTE | 2022-03-20 13:05 | NUR ---
Patient given written and verbal discharge instructions and verbalizes understanding. ER Dr. Todd MOORE discussed with patient the results and treatment provided. Patient in stable condition. ID arm band removed. IV catheter removed intact and dressing applied, no active bleeding. Patient educated on pain management and to follow up with PMD. Pain Scale 2/10. Opportunity for questions provided and answered. Medication side effect fact sheet provided.
== END 2022-03-20 13:05 | disposition home or self-care (01) ==
LOC: SED 07:16
DX: D64.9 Anemia, unspecified (principal); F11.20 Opioid dependence, uncomplicated; E11.22 Type 2 diabetes mellitus with diabetic chronic kidney disease; N18.6 End stage renal disease; E78.5 Hyperlipidemia, unspecified; I10 Essential (primary) hypertension; Z99.2 Dependence on renal dialysis; Z88.8 Allergy status to other drugs, medicaments and biological substances; Z91.030 Bee allergy status; Z86.79 Personal history of other diseases of the circulatory system; Z79.899 Other long term (current) drug therapy; Z20.822 Contact with and (suspected) exposure to COVID-19
CPT/HCPCS: 36415; 71045; 74176; 76376; 80053; 82272; 83690; 85025; 85651; 86886; 86900; 86901; 87426; 96374; 96375; 99285; J1885; J2270; J2405

== ENCOUNTER 2022-05-04 18:40 | Inpatient (IN) | payer MEDICARE ==
[~2022-05-04] VITALS: Ht 160 cm; Wt 90.7 kg
[~2022-05-04 18:40] MED LIST changes: +APIX2.5T PO; +DILT180C67 PO; -DILT30TA36 PO; +LACT10SO6 PO; +ONDA4TAB55 PO; -WARF5TAB2 PO
[2022-05-04 18:44] VITALS: BP_SYST 127
[2022-05-04] MEDS ORDERED: NITROGLYCERIN 0.4 MG TAB.SUBL SL ONE ×2 (19:15→23:15)
[2022-05-04 20:10] LABS: BASOPHILS # (AUTO) 0.1 K/uL (0.0-0.2); BASOPHILS % (AUTO) 1.4 % (0.0-2.0); EOSINOPHILS # (AUTO) 0.1 K/uL (0.0-0.4); EOSINOPHILS % (AUTO) 2.4 % (0.0-4.0); HEMATOCRIT 34.2 % (36-48); MEAN CORPUSCULAR HEMOGLOBIN 30 pg (27-31); MEAN CORPUSCULAR HGB CONC 32 % (32-36); MEAN CORPUSCULAR VOLUME 94 fL (79.0-98.0); MONOCYTES # (AUTO) 0.5 K/uL (0.0-1.0); NEUTROPHILS # (AUTO) 3.7 K/uL (1.8-7.7); NEUTROPHILS % (AUTO) 68.2 % (40.0-70.0); PLATELET COUNT (AUTO) 216 K/uL (130-430); RED BLOOD CELL COUNT(AUTO) 3.64 MIL/uL (4.2-6.2); RED CELL DISTRIBUTION WIDTH 16.6 % (9.0-15.0); WHITE BLOOD COUNT (AUTO) 5.4 K/uL (4.8-10.8)
[2022-05-04 20:45] LABS: ANION GAP 8 (5-15); CALCIUM 9.9 mg/dL (8.4-11.0); CHLORIDE 93 mmol/L (98-107); CREATININE 4.75 mg/dL (0.55-1.30); GLUCOSE 117 mg/dL (70-99); SODIUM SERUM 131 mmol/L (136-145); UREA NITROGEN, BLOOD 37 mg/dL (8-21)
[2022-05-04 20:56] LABS: ALANINE AMINOTRANSFERASE 8 U/L (12-78); ALBUMIN 3.1 g/dL (3.4-4.8); ASPARTATE AMINOTRANSFERASE 18 U/L (10-37); TOTAL BILIRUBIN 0.4 mg/dL (0.0-1.0)
[2022-05-04 20:58] LABS: POTASSIUM 5.5 mmol/L (3.5-5.1)
[2022-05-04] MEDS ORDERED: CALCIUM GLUCONATE 1 GM/10 ML VIAL IVP ONE (21:15)
[2022-05-04] MEDS ORDERED: SODIUM POLYSTYRENE SULFONATE 15 GM/60 ML UDBTL PO ONE (22:30)
[2022-05-05 05:12] VITALS: BP_SYST 121
[2022-05-05] MEDS ORDERED: ZOLPIDEM TARTRATE 5 MG TABLET PO PRN (07:30)
[2022-05-05] MEDS ORDERED: DOCUSATE SODIUM 100 MG CAPSULE PO PRN (07:30)
[2022-05-05] MEDS ORDERED: NALOXONE HCL 0.4 MG/ML AMP (NARCAN) IVP PRN ×2 (07:30)
[2022-05-05] MEDS ORDERED: MUPIROCIN 2% TOPICAL OINTMENT 22 GM NS PRN (07:30)
[2022-05-05] MEDS ORDERED: MAGNESIUM SULFATE 50 ML IV PRN (07:30)
[2022-05-05] MEDS ORDERED: POTASSIUM CHLORIDE 20 MEQ TAB.PRT.SR PO PRN (07:30)
[2022-05-05] MEDS ORDERED: NACL 0.9% 1,000 ML IV SCH (07:30)
[2022-05-05] MEDS ORDERED: LORazepam 2 MG/ML VIAL IVP PRN (07:30)
[2022-05-05] MEDS ORDERED: MORPHINE 2 MG/ML INJ. SYRINGE IVP PRN ×2 (07:30)
[2022-05-05 08:00] VITALS: BP_SYST 113
[2022-05-05] MEDS ORDERED: AMIODARONE HCL 200 MG TABLET PO SCH (09:00)
[2022-05-05 09:06] LABS: ANION GAP 8 (5-15); CALCIUM 9.6 mg/dL (8.4-11.0); CHLORIDE 95 mmol/L (98-107); CREATININE 4.96 mg/dL (0.55-1.30); GLUCOSE 104 mg/dL (70-99); POTASSIUM 4.8 mmol/L (3.5-5.1); SODIUM SERUM 134 mmol/L (136-145); UREA NITROGEN, BLOOD 38 mg/dL (8-21)
[2022-05-05] MEDS ORDERED: IPRATROPIUM/ALBUTEROL SULFATE 3 ML AMPUL.NEB (DUONEB) INH PRN (09:30)
[2022-05-05] MEDS ORDERED: AZITHROMYCIN 250 MG TABLET PO ONE (10:00)
[2022-05-05] MEDS: ACETAMINOPHEN 325 MG TABLET PO PRN ×3 (10:54→22:19)
[2022-05-05 12:00] VITALS: BP_SYST 126
[2022-05-05 14:00] VITALS: BP_SYST 102
[2022-05-05] MEDS: FLUoxetine HCL 10 MG CAPSULE (PROzac) PO SCH (14:03)
[2022-05-05] MEDS: DILTIAZEM HCL 180 MG CAP.SR.24H PO SCH (14:05)
[2022-05-05] MEDS: APIXABAN 2.5 MG TABLET PO SCH ×2 (14:06→22:16)
[2022-05-05] MEDS: LEVOTHYROXINE SODIUM 0.088 MG TABLET PO SCH (14:12)
[2022-05-05] MEDS: cefTRIAXone 1 GM in D5W 50 ML IV SCH (14:13)
[2022-05-05] MEDS: LATANOPROST 2.5 ML DROPS (XALATAN) OP SCH (14:13)
[2022-05-05 16:00] VITALS: BP_SYST 104
[2022-05-05] MEDS: ATORVASTATIN 20 MG TABLET PO SCH (17:21)
[2022-05-05 20:00] VITALS: BP_SYST 105
[2022-05-06] VITALS (7 sets, daily range): BP systolic 105–137
[2022-05-06] MEDS: ACETAMINOPHEN 325 MG TABLET PO PRN (08:55)
[2022-05-06] MEDS: LATANOPROST 2.5 ML DROPS (XALATAN) OP SCH (08:56)
[2022-05-06] MEDS: AZITHROMYCIN 250 MG TABLET PO SCH (11:56)
[2022-05-06] MEDS: APIXABAN 2.5 MG TABLET PO SCH ×2 (11:57→20:34)
[2022-05-06] MEDS: FLUoxetine HCL 10 MG CAPSULE (PROzac) PO SCH (11:57)
[2022-05-06] MEDS: LEVOTHYROXINE SODIUM 0.088 MG TABLET PO SCH (11:57)
[2022-05-06] MEDS: METOPROLOL SUCCINATE 50 MG TAB.SR.24H (TOPROL XL) PO SCH (11:58)
[2022-05-06] MEDS: cefTRIAXone 1 GM in D5W 50 ML IV SCH (12:26)
[2022-05-06 14:00] LABS: ANION GAP 5 (5-15); CALCIUM 9.1 mg/dL (8.4-11.0); CHLORIDE 100 mmol/L (98-107); CREATININE 2.36 mg/dL (0.55-1.30); GLUCOSE 145 mg/dL (70-99); POTASSIUM 3.9 mmol/L (3.5-5.1); SODIUM SERUM 135 mmol/L (136-145); UREA NITROGEN, BLOOD 10 mg/dL (8-21)
[2022-05-06 14:04] LABS: BASOPHILS # (AUTO) 0.1 K/uL (0.0-0.2); BASOPHILS % (AUTO) 2.8 % (0.0-2.0); HEMATOCRIT 36.6 % (36-48); HEMOGLOBIN 11.6 g/dL (12.0-16.0); LYMPHOCYTES # (AUTO) 0.6 K/uL (1.0-5.5); LYMPHOCYTES % (AUTO) 18.2 % (20.5-51.5); MEAN CORPUSCULAR HEMOGLOBIN 30 pg (27-31); MEAN CORPUSCULAR HGB CONC 32 % (32-36); MEAN CORPUSCULAR VOLUME 95 fL (79.0-98.0); MONOCYTES # (AUTO) 0.4 K/uL (0.0-1.0); MONOCYTES % (AUTO) 10.9 % (1.7-9.3); NEUTROPHILS # (AUTO) 2.2 K/uL (1.8-7.7); NEUTROPHILS % (AUTO) 67.1 % (40.0-70.0); PLATELET COUNT (AUTO) 146 K/uL (130-430); RED BLOOD CELL COUNT(AUTO) 3.85 MIL/uL (4.2-6.2); RED CELL DISTRIBUTION WIDTH 16.8 % (9.0-15.0); WHITE BLOOD COUNT (AUTO) 3.3 K/uL (4.8-10.8)
[2022-05-06] MEDS: DILTIAZEM HCL 180 MG CAP.SR.24H PO SCH (14:37)
[2022-05-06] MEDS: ATORVASTATIN 20 MG TABLET PO SCH (18:26)
[2022-05-07 04:00] VITALS: BP_SYST 130
[2022-05-07 07:51] LABS: ANION GAP 7 (5-15); CALCIUM 9.8 mg/dL (8.4-11.0); CHLORIDE 99 mmol/L (98-107); CREATININE 3.29 mg/dL (0.55-1.30); GLUCOSE 108 mg/dL (70-99); POTASSIUM 3.9 mmol/L (3.5-5.1); SODIUM SERUM 137 mmol/L (136-145); UREA NITROGEN, BLOOD 23 mg/dL (8-21)
[2022-05-07 09:17] LABS: BASOPHILS # (AUTO) 0.1 K/uL (0.0-0.2); BASOPHILS % (AUTO) 1.5 % (0.0-2.0); EOSINOPHILS # (AUTO) 0.2 K/uL (0.0-0.4); EOSINOPHILS % (AUTO) 4.3 % (0.0-4.0); HEMATOCRIT 33.6 % (36-48); HEMOGLOBIN 10.7 g/dL (12.0-16.0); LYMPHOCYTES # (AUTO) 1.1 K/uL (1.0-5.5); LYMPHOCYTES % (AUTO) 26.6 % (20.5-51.5); MEAN CORPUSCULAR HEMOGLOBIN 30 pg (27-31); MEAN CORPUSCULAR HGB CONC 32 % (32-36); MEAN CORPUSCULAR VOLUME 94 fL (79.0-98.0); MONOCYTES # (AUTO) 0.5 K/uL (0.0-1.0); MONOCYTES % (AUTO) 11.2 % (1.7-9.3); NEUTROPHILS # (AUTO) 2.3 K/uL (1.8-7.7); NEUTROPHILS % (AUTO) 56.4 % (40.0-70.0); PLATELET COUNT (AUTO) 156 K/uL (130-430); RED BLOOD CELL COUNT(AUTO) 3.58 MIL/uL (4.2-6.2); RED CELL DISTRIBUTION WIDTH 16.7 % (9.0-15.0); WHITE BLOOD COUNT (AUTO) 4.1 K/uL (4.8-10.8)
[2022-05-07] MEDS: DILTIAZEM HCL 180 MG CAP.SR.24H PO SCH (09:18)
[2022-05-07] MEDS: METOPROLOL SUCCINATE 50 MG TAB.SR.24H (TOPROL XL) PO SCH (09:18)
[2022-05-07] MEDS: FLUoxetine HCL 10 MG CAPSULE (PROzac) PO SCH (09:18)
[2022-05-07] MEDS: LEVOTHYROXINE SODIUM 0.088 MG TABLET PO SCH (09:19)
[2022-05-07] MEDS: AZITHROMYCIN 250 MG TABLET PO SCH (09:19)
[2022-05-07] MEDS: LATANOPROST 2.5 ML DROPS (XALATAN) OP SCH (09:20)
[2022-05-07] MEDS: APIXABAN 2.5 MG TABLET PO SCH ×2 (09:22→20:36)
[2022-05-07 09:57] VITALS: BP_SYST 121
[2022-05-07 09:58] VITALS: BP_SYST 121
[2022-05-07] MEDS: cefTRIAXone 1 GM in D5W 50 ML IV SCH (11:09)
[2022-05-07] MEDS: ONDANSETRON HCL 4 MG/2 ML VIAL IVP PRN (11:48)
[2022-05-07] MEDS: ATORVASTATIN 20 MG TABLET PO SCH (17:21)
[2022-05-07 19:00] VITALS: BP_SYST 118
[2022-05-07 20:00] VITALS: BP_SYST 118
[2022-05-08 04:00] VITALS: BP_SYST 122
[2022-05-08] MEDS: ACETAMINOPHEN 325 MG TABLET PO PRN ×2 (05:35→22:58)
[2022-05-08 08:00] VITALS: BP_SYST 112
[2022-05-08 08:46] LABS: BASOPHILS % (AUTO) 1.2 % (0.0-2.0); EOSINOPHILS # (AUTO) 0.2 K/uL (0.0-0.4); EOSINOPHILS % (AUTO) 4.7 % (0.0-4.0); HEMATOCRIT 35.5 % (36-48); HEMOGLOBIN 11.2 g/dL (12.0-16.0); LYMPHOCYTES % (AUTO) 24.9 % (20.5-51.5); MEAN CORPUSCULAR HEMOGLOBIN 30 pg (27-31); MEAN CORPUSCULAR HGB CONC 32 % (32-36); MEAN CORPUSCULAR VOLUME 94 fL (79.0-98.0); MONOCYTES # (AUTO) 0.4 K/uL (0.0-1.0); MONOCYTES % (AUTO) 9.5 % (1.7-9.3); NEUTROPHILS # (AUTO) 2.4 K/uL (1.8-7.7); NEUTROPHILS % (AUTO) 59.7 % (40.0-70.0); PLATELET COUNT (AUTO) 149 K/uL (130-430); RED BLOOD CELL COUNT(AUTO) 3.77 MIL/uL (4.2-6.2); RED CELL DISTRIBUTION WIDTH 16.6 % (9.0-15.0)
[2022-05-08] MEDS ORDERED: LEVO250T43 PO (08:49)
[2022-05-08] MEDS: METOPROLOL SUCCINATE 50 MG TAB.SR.24H (TOPROL XL) PO SCH (09:00)
[2022-05-08] MEDS: DILTIAZEM HCL 180 MG CAP.SR.24H PO SCH (09:00)
[2022-05-08 09:07] LABS: ANION GAP 14 (5-15); CALCIUM 9.3 mg/dL (8.4-11.0); CHLORIDE 97 mmol/L (98-107); CREATININE 4.73 mg/dL (0.55-1.30); GLUCOSE 110 mg/dL (70-99); POTASSIUM 4.4 mmol/L (3.5-5.1); SODIUM SERUM 138 mmol/L (136-145); UREA NITROGEN, BLOOD 40 mg/dL (8-21)
[2022-05-08] MEDS: LEVOTHYROXINE SODIUM 0.088 MG TABLET PO SCH (09:35)
[2022-05-08] MEDS: FLUoxetine HCL 10 MG CAPSULE (PROzac) PO SCH (09:35)
[2022-05-08] MEDS: AZITHROMYCIN 250 MG TABLET PO SCH (09:35)
[2022-05-08] MEDS: APIXABAN 2.5 MG TABLET PO SCH ×2 (09:36→22:53)
[2022-05-08] MEDS: LATANOPROST 2.5 ML DROPS (XALATAN) OP SCH (09:37)
[2022-05-08] MEDS: cefTRIAXone 1 GM in D5W 50 ML IV SCH (10:29)
[2022-05-08 12:00] VITALS: BP_SYST 109
[2022-05-08 12:17] VITALS: BP_SYST 112
[2022-05-08 16:00] VITALS: BP_SYST 112
[2022-05-08] MEDS: ATORVASTATIN 20 MG TABLET PO SCH (17:53)
[2022-05-08 20:00] VITALS: BP_SYST 129
[2022-05-08] MEDS: ONDANSETRON HCL 4 MG/2 ML VIAL IVP PRN (22:58)
[2022-05-09 06:57] LABS: BASOPHILS # (AUTO) 0.1 K/uL (0.0-0.2); BASOPHILS % (AUTO) 1.2 % (0.0-2.0); EOSINOPHILS # (AUTO) 0.2 K/uL (0.0-0.4); EOSINOPHILS % (AUTO) 4.7 % (0.0-4.0); HEMATOCRIT 33.4 % (36-48); HEMOGLOBIN 10.7 g/dL (12.0-16.0); LYMPHOCYTES % (AUTO) 24.1 % (20.5-51.5); MEAN CORPUSCULAR HEMOGLOBIN 30 pg (27-31); MEAN CORPUSCULAR HGB CONC 32 % (32-36); MEAN CORPUSCULAR VOLUME 94 fL (79.0-98.0); MONOCYTES # (AUTO) 0.5 K/uL (0.0-1.0); MONOCYTES % (AUTO) 12.3 % (1.7-9.3); NEUTROPHILS # (AUTO) 2.5 K/uL (1.8-7.7); NEUTROPHILS % (AUTO) 57.7 % (40.0-70.0); PLATELET COUNT (AUTO) 136 K/uL (130-430); RED BLOOD CELL COUNT(AUTO) 3.55 MIL/uL (4.2-6.2); RED CELL DISTRIBUTION WIDTH 16.4 % (9.0-15.0); WHITE BLOOD COUNT (AUTO) 4.3 K/uL (4.8-10.8)
[2022-05-09 08:10] LABS: ANION GAP 0 (5-15); CALCIUM 9.2 mg/dL (8.4-11.0); CHLORIDE 102 mmol/L (98-107); CREATININE 3.79 mg/dL (0.55-1.30); GLUCOSE 115 mg/dL (70-99); POTASSIUM 4.3 mmol/L (3.5-5.1); SODIUM SERUM 131 mmol/L (136-145); UREA NITROGEN, BLOOD 36 mg/dL (8-21)
[2022-05-09 08:17] VITALS: BP_SYST 127
[2022-05-09] MEDS: DILTIAZEM HCL 180 MG CAP.SR.24H PO SCH ×2 (10:22→10:24)
[2022-05-09] MEDS: APIXABAN 2.5 MG TABLET PO SCH (10:24)
[2022-05-09] MEDS: METOPROLOL SUCCINATE 50 MG TAB.SR.24H (TOPROL XL) PO SCH (10:26)
[2022-05-09] MEDS: FLUoxetine HCL 10 MG CAPSULE (PROzac) PO SCH (10:26)
[2022-05-09] MEDS: LATANOPROST 2.5 ML DROPS (XALATAN) OP SCH (10:32)
[2022-05-09] MEDS: AZITHROMYCIN 250 MG TABLET PO SCH (10:32)
[2022-05-09] MEDS: LEVOTHYROXINE SODIUM 0.088 MG TABLET PO SCH (11:02)
[2022-05-09] MEDS: cefTRIAXone 1 GM in D5W 50 ML IV SCH (11:04)
[2022-05-09 11:26] VITALS: BP_SYST 127
[2022-05-09 12:20] VITALS: BP_SYST 125
== END 2022-05-09 17:32 | disposition home health service (06) | DRG 193 ==
LOC: SED 18:40 → STU 05-05 01:57
PROVIDERS: ADMIT General Practice; ATTEND General Practice
PROC: 5A1D70Z Performance of Urinary Filtration, Intermittent, Less than 6 Hours Per Day (ICD-10-PCS; principal; 2022-05-05)
PROC: 5A1D70Z Performance of Urinary Filtration, Intermittent, Less than 6 Hours Per Day (ICD-10-PCS; 2022-05-06)
PROC: 5A1D70Z Performance of Urinary Filtration, Intermittent, Less than 6 Hours Per Day (ICD-10-PCS; 2022-05-08)
DX: J18.9 Pneumonia, unspecified organism (principal); I50.43 Acute on chronic combined systolic (congestive) and diastolic (congestive) heart failure; J96.00 Acute respiratory failure, unspecified whether with hypoxia or hypercapnia; N17.0 Acute kidney failure with tubular necrosis; N18.6 End stage renal disease; I13.2 Hypertensive heart and chronic kidney disease with heart failure and with stage 5 chronic kidney disease, or end stage renal disease; E44.1 Mild protein-calorie malnutrition; I48.20 Chronic atrial fibrillation, unspecified; E87.1 Hypo-osmolality and hyponatremia; E87.70 Fluid overload, unspecified; E03.9 Hypothyroidism, unspecified; E11.22 Type 2 diabetes mellitus with diabetic chronic kidney disease; E66.9 Obesity, unspecified; E56.9 Vitamin deficiency, unspecified; E87.5 Hyperkalemia; E78.00 Pure hypercholesterolemia, unspecified; G89.4 Chronic pain syndrome; Z20.822 Contact with and (suspected) exposure to COVID-19; M19.90 Unspecified osteoarthritis, unspecified site; Z86.73 Personal history of transient ischemic attack (TIA), and cerebral infarction without residual deficits; Z68.35 Body mass index [BMI] 35.0-35.9, adult; Z99.2 Dependence on renal dialysis; Z95.0 Presence of cardiac pacemaker; Z74.01 Bed confinement status; Z79.899 Other long term (current) drug therapy; Z90.49 Acquired absence of other specified parts of digestive tract
CPT/HCPCS: 36415; 70490; 71045; 71250-TC; 76376; 76604; 80048; 80053; 83036; 83735; 83880; 84484; 85025; 87081; 90935; 90937; 93005; 96374; 99291; 99292; G0378; J0610; J0696; J2060; J2270; J2405; J7060; Q0144

== ENCOUNTER 2022-05-19 08:37 | Emergency (ER) | payer MEDICARE ==
[~2022-05-19] VITALS: Ht 167.6 cm; Wt 77.1 kg
[~2022-05-19 08:37] MED LIST changes: +LEVO250T73 PO
[2022-05-19 08:50] VITALS: BP_SYST 120
--- NOTE | 2022-05-19 08:56 | NUR ---
Triaged pt and pt waiting on ambulance gurney until bed becomes available. Pt coming from group home home c/o abdominal pain 7/10 and constipation x5days. Pt is A&Ox4. Skin intact. Pupils PERRLA. VSS. No chest pain and no sob.
--- NOTE | 2022-05-19 09:10 | NUR ---
Patient to ER bed 4 to gown for evaluation. Side rails up. Report given to Natali REYNA.
--- NOTE | 2022-05-19 09:26 | NUR ---
Assumed care of pt who was brought by BLS c/o abdominal pain. Pt has a hx of Type II DM, htn, CAD. Pt states he has abdominal pain 6. Pt is A&Ox4, calm and cooperative. Will continue to monitor and provide interventions as ordered.
[2022-05-19 09:39] LABS: BASOPHILS % (AUTO) 0.8 % (0.0-2.0); EOSINOPHILS # (AUTO) 0.1 K/uL (0.0-0.4); EOSINOPHILS % (AUTO) 1.6 % (0.0-4.0); HEMOGLOBIN 12.7 g/dL (12.0-16.0); LYMPHOCYTES # (AUTO) 0.8 K/uL (1.0-5.5); LYMPHOCYTES % (AUTO) 16.9 % (20.5-51.5); MEAN CORPUSCULAR HEMOGLOBIN 31 pg (27-31); MEAN CORPUSCULAR HGB CONC 33 % (32-36); MEAN CORPUSCULAR VOLUME 94 fL (79.0-98.0); MONOCYTES # (AUTO) 0.2 K/uL (0.0-1.0); MONOCYTES % (AUTO) 4.7 % (1.7-9.3); NEUTROPHILS # (AUTO) 3.6 K/uL (1.8-7.7); PLATELET COUNT (AUTO) 220 K/uL (130-430); RED BLOOD CELL COUNT(AUTO) 4.17 MIL/uL (4.2-6.2); RED CELL DISTRIBUTION WIDTH 17.4 % (9.0-15.0); WHITE BLOOD COUNT (AUTO) 4.7 K/uL (4.8-10.8)
[2022-05-19 10:16] LABS: ANION GAP 11 (5-15); CALCIUM 10.2 mg/dL (8.4-11.0); CHLORIDE 94 mmol/L (98-107); CREATININE 5.34 mg/dL (0.55-1.30); GLUCOSE 108 mg/dL (70-99); POTASSIUM 4.5 mmol/L (3.5-5.1); SODIUM SERUM 135 mmol/L (136-145); UREA NITROGEN, BLOOD 49 mg/dL (8-21)
[2022-05-19 10:21] LABS: ALANINE AMINOTRANSFERASE 11 U/L (12-78); ALBUMIN 3.2 g/dL (3.4-4.8); ASPARTATE AMINOTRANSFERASE 16 U/L (10-37); LIPASE 115 U/L (73-393); TOTAL BILIRUBIN 0.4 mg/dL (0.0-1.0)
--- NOTE | 2022-05-19 11:00 | NUR ---
assumed care to pt at this time. report recieved from radha. pt is resting comfortably at bedside. shira fuller. raphael.
--- NOTE | 2022-05-19 11:01 | NUR ---
pt paulette saeeds from snf with hx DM2, HTN, CAD, ESRD on HD (MWF) w/ LLE fistula, here c/o constipation x 5days. also endorses "SOB recently" at rest with 88% RA. placed on 4L NC, now sats 97%. pt also stated that she missed dialysis today. pt attached to bus driver/monitor. vss nad. wctm. no pedning orders at this time.
--- NOTE | 2022-05-19 11:34 | NUR ---
assisted pt to bedpan, urine obtained and sent for ua
[2022-05-19] MEDS ORDERED: MAGNESIUM CITRATE 300 ML ORAL SOLUTION PO ONE (11:45)
[2022-05-19 12:29] LABS: BILIRUBIN,URINE NEGATIVE (NEGATIVE); CLARITY/URINE CLEAR (CLEAR); COLOR,URINE YELLOW (YELLOW); GLUCOSE,URINE NEGATIVE (NEGATIVE); KETONES,URINE NEGATIVE (NEGATIVE); LEUKOCYTE ESTERASE ,URINE TRACE (NEGATIVE); NITRITE, URINE NEGATIVE (NEGATIVE); PROTEIN URINE 1+ (NEGATIVE); UROBILINOGEN,URINE 0.2 (0.2-1.0)
[2022-05-19 12:34] LABS: BLOOD, URINE TRACE (NEGATIVE)
--- NOTE | 2022-05-19 13:40 | NUR ---
covid swabbed, walked to lab
--- NOTE | 2022-05-19 16:58 | NUR ---
report given to MARIBELL De La Rosa, ALEX esparza. all questions answered. Admitting MD: Dr Gutierrez phone: [phone] [facility] ETA 0581 via ALS
--- NOTE | 2022-05-19 17:30 | NUR ---
Bedside report given to track man Brandon Camejo-1, RIg #[id number], taking pt via ALS to [facility]. transfer packet provided. all belingngs with pt. IV site patent and intact, saline lock. pt is AOx4, resp even and unlabored. stable for transfer. Addendum: 05/19/22 at 1738 by [email or web address] vss nad.
[2022-05-19 17:33] VITALS: BP_SYST 126
== END 2022-05-19 17:33 | disposition short-term general hospital (02) ==
LOC: SED 08:37
DX: E11.22 Type 2 diabetes mellitus with diabetic chronic kidney disease (principal); N18.6 End stage renal disease; J96.01 Acute respiratory failure with hypoxia; I10 Essential (primary) hypertension; K59.00 Constipation, unspecified; R10.9 Unspecified abdominal pain; Z20.822 Contact with and (suspected) exposure to COVID-19
CPT/HCPCS: 36415; 71045; 76376; 80053; 81003; 83690; 83880; 84484; 85025; 93005; 99285; 99291

== ENCOUNTER 2022-07-14 18:52 | Inpatient (IN) | payer MEDICARE ==
[~2022-07-14] VITALS: Ht 160 cm; Wt 81.2 kg
[2022-07-14 18:55] VITALS: BP_SYST 101
[2022-07-14] MEDS ORDERED: ASPIRIN 81 MG TAB.CHEW PO ONE (19:15)
[2022-07-14 20:16] LABS: BASOPHILS % (AUTO) 1.2 % (0.0-2.0); EOSINOPHILS # (AUTO) 0.1 K/uL (0.0-0.4); EOSINOPHILS % (AUTO) 3.3 % (0.0-4.0); HEMATOCRIT 36.4 % (36-48); LYMPHOCYTES # (AUTO) 0.7 K/uL (1.0-5.5); LYMPHOCYTES % (AUTO) 20.3 % (20.5-51.5); MEAN CORPUSCULAR VOLUME 91 fL (79.0-98.0); MONOCYTES # (AUTO) 0.3 K/uL (0.0-1.0); MONOCYTES % (AUTO) 8.2 % (1.7-9.3); NEUTROPHILS # (AUTO) 2.4 K/uL (1.8-7.7); PLATELET COUNT (AUTO) 144 K/uL (130-430); RED BLOOD CELL COUNT(AUTO) 4.02 MIL/uL (4.2-6.2); RED CELL DISTRIBUTION WIDTH 18.1 % (9.0-15.0); WHITE BLOOD COUNT (AUTO) 3.6 K/uL (4.8-10.8)
[2022-07-14 20:22] LABS: ANION GAP 8 (5-15); CALCIUM 8.9 mg/dL (8.4-11.0); CHLORIDE 97 mmol/L (98-107); CREATININE 2.56 mg/dL (0.55-1.30); GLUCOSE 159 mg/dL (70-99); POTASSIUM 3.4 mmol/L (3.5-5.1); UREA NITROGEN, BLOOD 9 mg/dL (8-21)
[2022-07-14 20:32] LABS: ALANINE AMINOTRANSFERASE 11 U/L (12-78); ALBUMIN 3.3 g/dL (3.4-4.8); ASPARTATE AMINOTRANSFERASE 15 U/L (10-37); TOTAL BILIRUBIN 0.4 mg/dL (0.0-1.0)
[2022-07-14] MEDS ORDERED: NITROGLYCERIN 0.4 MG TAB.SUBL SL PRN (21:15)
[2022-07-14] MEDS ORDERED: BISACODYL 10 MG/SUPPOSITORY RC PRN (22:45)
[2022-07-14] MEDS ORDERED: POLYETHYLENE GLYCOL 3350, 17 GM/ POWD.PACK PO SCH (22:45)
[2022-07-14] MEDS ORDERED: ACETAMINOPHEN 500 MG TABLET PO PRN (22:45)
[2022-07-14] MEDS ORDERED: OXYCODONE/ACETAMINOPHEN 5-325 TABLET PO PRN (22:45)
[2022-07-14] MEDS ORDERED: NALOXONE HCL 0.4 MG/ML AMP (NARCAN) IVP PRN (22:45)
[2022-07-14] MEDS ORDERED: fentaNYL CITRATE/PF 100 MCG/2 ML AMP IVP ONE (23:00)
[2022-07-14 23:30] VITALS: BP_SYST 101
[2022-07-14 23:41] VITALS: BP_SYST 101
[2022-07-15 01:25] VITALS: BP_SYST 104
[2022-07-15 04:25] VITALS: BP_SYST 108
[2022-07-15] MEDS ORDERED: LEVO100T9 PO (06:34)
[2022-07-15] MEDS ORDERED: METO100T14 PO (06:35)
[2022-07-15] MEDS ORDERED: LEVOTHYROXINE SODIUM 0.088 MG TABLET PO SCH (07:00)
[2022-07-15] MEDS: LEVOTHYROXINE SODIUM 0.1 MG TABLET PO SCH (07:08)
[2022-07-15 08:00] VITALS: BP_SYST 102
[2022-07-15] MEDS: OLOPATADINE HCL OP SCH (09:00)
[2022-07-15] MEDS ORDERED: OLOPATADINE HCL Non-Formulary 5 ML DROPS OP SCH (09:00)
[2022-07-15] MEDS: MULTIVITAMINS TAB 1 TABLET PO SCH (10:05)
[2022-07-15] MEDS: CHOLECALCIFEROL (VITAMIN D3) 2,000 UNIT TABLET PO SCH (10:05)
[2022-07-15] MEDS: AMIODARONE HCL 200 MG TABLET PO SCH ×2 (10:05→21:03)
[2022-07-15] MEDS: FLUoxetine HCL 10 MG CAPSULE (PROzac) PO SCH (10:06)
[2022-07-15] MEDS: predniSONE 10 MG TABLET PO SCH (10:06)
[2022-07-15] MEDS: POTASSIUM CHLORIDE 10 MEQ TAB.PRT.SR PO SCH ×2 (10:06→21:01)
[2022-07-15] MEDS: APIXABAN 2.5 MG TABLET PO SCH ×2 (10:07→21:04)
[2022-07-15] MEDS: COLCHICINE 0.6 MG TABLET PO SCH (10:09)
[2022-07-15] MEDS: MINERAL OIL 133 ML ENEMA RC SCH ×2 (10:10→21:00)
[2022-07-15] MEDS: POLYETHYLENE GLYCOL 3350, 17 GM/ POWD.PACK PO SCH (10:14)
[2022-07-15] MEDS: hydrALAZINE HCL 25 MG TABLET PO SCH ×2 (10:15→21:03)
[2022-07-15] MEDS: DILTIAZEM HCL 180 MG CAP.SR.24H PO SCH (10:16)
[2022-07-15] MEDS: METOPROLOL TARTRATE 50 MG TABLET PO SCH ×2 (10:16→21:02)
[2022-07-15] MEDS: FUROSEMIDE 80 MG TABLET PO SCH ×2 (10:17→21:01)
[2022-07-15 12:00] VITALS: BP_SYST 103
[2022-07-15 16:00] VITALS: BP_SYST 114; BP_SYST 124; BP_SYST 139
[2022-07-15] MEDS: ATORVASTATIN 20 MG TABLET PO SCH (17:39)
[2022-07-15 20:00] VITALS: BP_SYST 119
[2022-07-15] MEDS: LATANOPROST 2.5 ML DROPS (XALATAN) OP SCH (21:05)
[2022-07-16 00:51] VITALS: BP_SYST 114
[2022-07-16] MEDS: LEVOTHYROXINE SODIUM 0.1 MG TABLET PO SCH (06:26)
[2022-07-16 08:00] VITALS: BP_SYST 111
[2022-07-16] MEDS: POLYETHYLENE GLYCOL 3350, 17 GM/ POWD.PACK PO SCH (08:41)
[2022-07-16] MEDS: MINERAL OIL 133 ML ENEMA RC SCH ×2 (08:42→20:22)
[2022-07-16] MEDS: MULTIVITAMINS TAB 1 TABLET PO SCH (08:42)
[2022-07-16] MEDS: DILTIAZEM HCL 180 MG CAP.SR.24H PO SCH (08:42)
[2022-07-16] MEDS: METOPROLOL TARTRATE 50 MG TABLET PO SCH ×2 (08:43→20:18)
[2022-07-16] MEDS: FUROSEMIDE 80 MG TABLET PO SCH ×2 (08:43→20:19)
[2022-07-16] MEDS: predniSONE 10 MG TABLET PO SCH (08:44)
[2022-07-16] MEDS: AMIODARONE HCL 200 MG TABLET PO SCH ×2 (08:44→20:17)
[2022-07-16] MEDS: FLUoxetine HCL 10 MG CAPSULE (PROzac) PO SCH (08:45)
[2022-07-16] MEDS: hydrALAZINE HCL 25 MG TABLET PO SCH ×2 (08:45→20:19)
[2022-07-16] MEDS: CHOLECALCIFEROL (VITAMIN D3) 2,000 UNIT TABLET PO SCH (08:46)
[2022-07-16] MEDS: COLCHICINE 0.6 MG TABLET PO SCH (08:46)
[2022-07-16] MEDS: POTASSIUM CHLORIDE 10 MEQ TAB.PRT.SR PO SCH ×2 (08:46→20:17)
[2022-07-16] MEDS: APIXABAN 2.5 MG TABLET PO SCH ×2 (08:49→20:20)
[2022-07-16] MEDS: OLOPATADINE HCL OP SCH (08:50)
[2022-07-16] MEDS ORDERED: ONDANSETRON HCL 4 MG/2 ML VIAL IVP PRN (11:00)
[2022-07-16] MEDS ORDERED: SUCRALFATE 1 GM TABLET PO ONE (11:00)
[2022-07-16 12:00] VITALS: BP_SYST 95
[2022-07-16 16:00] VITALS: BP_SYST 104
[2022-07-16] MEDS: ATORVASTATIN 20 MG TABLET PO SCH (17:08)
[2022-07-16 20:00] VITALS: BP_SYST 112
[2022-07-16] MEDS: SUCRALFATE 1 GM TABLET PO SCH (20:17)
[2022-07-16] MEDS: LATANOPROST 2.5 ML DROPS (XALATAN) OP SCH (20:21)
[2022-07-16] MEDS: ONDANSETRON HCL 4 MG/2 ML VIAL IVP PRN (22:15)
[2022-07-17] MEDS: LEVOTHYROXINE SODIUM 0.1 MG TABLET PO SCH (06:13)
[2022-07-17 07:39] LABS: ANION GAP 8 (5-15); CALCIUM 9.2 mg/dL (8.4-11.0); CHLORIDE 97 mmol/L (98-107); CREATININE 5.05 mg/dL (0.55-1.30); GLUCOSE 113 mg/dL (70-99); POTASSIUM 5.7 mmol/L (3.5-5.1); UREA NITROGEN, BLOOD 48 mg/dL (8-21)
[2022-07-17 07:44] LABS: BASOPHILS % (AUTO) 0.5 % (0.0-2.0); EOSINOPHILS % (AUTO) 0.1 % (0.0-4.0); HEMATOCRIT 37.1 % (36-48); LYMPHOCYTES % (AUTO) 22.1 % (20.5-51.5); MEAN CORPUSCULAR VOLUME 92 fL (79.0-98.0); MONOCYTES # (AUTO) 0.4 K/uL (0.0-1.0); MONOCYTES % (AUTO) 9.4 % (1.7-9.3); NEUTROPHILS # (AUTO) 2.9 K/uL (1.8-7.7); NEUTROPHILS % (AUTO) 67.9 % (40.0-70.0); PLATELET COUNT (AUTO) 160 K/uL (130-430); RED BLOOD CELL COUNT(AUTO) 4.02 MIL/uL (4.2-6.2); WHITE BLOOD COUNT (AUTO) 4.3 K/uL (4.8-10.8)
[2022-07-17 07:49] LABS: ALANINE AMINOTRANSFERASE 12 U/L (12-78); ASPARTATE AMINOTRANSFERASE 16 U/L (10-37); TOTAL BILIRUBIN 0.4 mg/dL (0.0-1.0)
[2022-07-17 08:00] VITALS: BP_SYST 109
[2022-07-17] MEDS: hydrALAZINE HCL 25 MG TABLET PO SCH ×2 (09:00→21:10)
[2022-07-17] MEDS: MINERAL OIL 133 ML ENEMA RC SCH ×2 (09:00→20:49)
[2022-07-17] MEDS: METOPROLOL TARTRATE 50 MG TABLET PO SCH ×2 (09:00→22:00)
[2022-07-17] MEDS: DILTIAZEM HCL 180 MG CAP.SR.24H PO SCH (09:00)
[2022-07-17] MEDS: POLYETHYLENE GLYCOL 3350, 17 GM/ POWD.PACK PO SCH (09:16)
[2022-07-17] MEDS: predniSONE 10 MG TABLET PO SCH (09:16)
[2022-07-17] MEDS: COLCHICINE 0.6 MG TABLET PO SCH (09:16)
[2022-07-17] MEDS: SUCRALFATE 1 GM TABLET PO SCH ×2 (09:16→21:09)
[2022-07-17] MEDS: FLUoxetine HCL 10 MG CAPSULE (PROzac) PO SCH (09:16)
[2022-07-17] MEDS: AMIODARONE HCL 200 MG TABLET PO SCH ×2 (09:17→21:10)
[2022-07-17] MEDS: CHOLECALCIFEROL (VITAMIN D3) 2,000 UNIT TABLET PO SCH (09:19)
[2022-07-17] MEDS: APIXABAN 2.5 MG TABLET PO SCH ×2 (09:19→21:15)
[2022-07-17] MEDS: OLOPATADINE HCL OP SCH (09:25)
[2022-07-17] MEDS: FUROSEMIDE 80 MG TABLET PO SCH ×2 (09:25→21:09)
[2022-07-17] MEDS: MULTIVITAMINS TAB 1 TABLET PO SCH (09:28)
[2022-07-17] MEDS: POTASSIUM CHLORIDE 10 MEQ TAB.PRT.SR PO SCH ×2 (09:28→21:00)
[2022-07-17 12:00] VITALS: BP_SYST 118
[2022-07-17 16:00] VITALS: BP_SYST 105
[2022-07-17] MEDS: ATORVASTATIN 20 MG TABLET PO SCH (18:11)
[2022-07-17 20:00] VITALS: BP_SYST 112
[2022-07-17] MEDS: LATANOPROST 2.5 ML DROPS (XALATAN) OP SCH (21:00)
[2022-07-17] MEDS: HYDROcodone/ACETAMIN 5-325 MG TAB (NORCO/ VICODIN) PO PRN (21:52)
[2022-07-18] VITALS: BP_SYST 107
[2022-07-18] MEDS: LEVOTHYROXINE SODIUM 0.1 MG TABLET PO SCH (06:28)
[2022-07-18 07:01] LABS: EOSINOPHILS % (AUTO) 0.5 % (0.0-4.0); HEMATOCRIT 33.2 % (36-48); LYMPHOCYTES # (AUTO) 1.1 K/uL (1.0-5.5); LYMPHOCYTES % (AUTO) 27.2 % (20.5-51.5); MEAN CORPUSCULAR VOLUME 90 fL (79.0-98.0); MONOCYTES # (AUTO) 0.5 K/uL (0.0-1.0); MONOCYTES % (AUTO) 12.6 % (1.7-9.3); NEUTROPHILS # (AUTO) 2.4 K/uL (1.8-7.7); NEUTROPHILS % (AUTO) 58.7 % (40.0-70.0); PLATELET COUNT (AUTO) 157 K/uL (130-430); RED BLOOD CELL COUNT(AUTO) 3.68 MIL/uL (4.2-6.2); RED CELL DISTRIBUTION WIDTH 17.7 % (9.0-15.0); WHITE BLOOD COUNT (AUTO) 4.1 K/uL (4.8-10.8)
[2022-07-18 07:46] LABS: ANION GAP 6 (5-15); CALCIUM 8.6 mg/dL (8.4-11.0); CHLORIDE 97 mmol/L (98-107); CREATININE 3.66 mg/dL (0.55-1.30); GLUCOSE 90 mg/dL (70-99); POTASSIUM 4.5 mmol/L (3.5-5.1); UREA NITROGEN, BLOOD 35 mg/dL (8-21)
[2022-07-18 08:00] VITALS: BP_SYST 116
[2022-07-18] MEDS: MULTIVITAMINS TAB 1 TABLET PO SCH (08:59)
[2022-07-18] MEDS: COLCHICINE 0.6 MG TABLET PO SCH (08:59)
[2022-07-18] MEDS: FLUoxetine HCL 10 MG CAPSULE (PROzac) PO SCH (08:59)
[2022-07-18] MEDS: MINERAL OIL 133 ML ENEMA RC SCH ×2 (09:00→21:00)
[2022-07-18] MEDS: SUCRALFATE 1 GM TABLET PO SCH ×2 (09:00→21:56)
[2022-07-18] MEDS: OLOPATADINE HCL OP SCH (09:00)
[2022-07-18] MEDS: predniSONE 10 MG TABLET PO SCH (09:00)
[2022-07-18] MEDS: POTASSIUM CHLORIDE 10 MEQ TAB.PRT.SR PO SCH ×2 (09:00→21:56)
[2022-07-18] MEDS: CHOLECALCIFEROL (VITAMIN D3) 2,000 UNIT TABLET PO SCH (09:00)
[2022-07-18] MEDS: POLYETHYLENE GLYCOL 3350, 17 GM/ POWD.PACK PO SCH (09:01)
[2022-07-18] MEDS: DILTIAZEM HCL 180 MG CAP.SR.24H PO SCH (09:03)
[2022-07-18] MEDS: METOPROLOL TARTRATE 50 MG TABLET PO SCH ×2 (09:03→21:56)
[2022-07-18] MEDS: AMIODARONE HCL 200 MG TABLET PO SCH ×2 (09:04→21:55)
[2022-07-18] MEDS: FUROSEMIDE 80 MG TABLET PO SCH ×2 (09:04→21:56)
[2022-07-18] MEDS: hydrALAZINE HCL 25 MG TABLET PO SCH ×2 (09:05→21:56)
[2022-07-18] MEDS: APIXABAN 2.5 MG TABLET PO SCH ×2 (09:06→22:00)
[2022-07-18] MEDS: ONDANSETRON HCL 4 MG/2 ML VIAL IVP PRN (10:05)
[2022-07-18] MEDS: HYDROcodone/ACETAMIN 5-325 MG TAB (NORCO/ VICODIN) PO PRN (10:06)
[2022-07-18 12:00] VITALS: BP_SYST 121
[2022-07-18 16:00] VITALS: BP_SYST 118
[2022-07-18] MEDS: ATORVASTATIN 20 MG TABLET PO SCH (18:42)
[2022-07-18 18:48] VITALS: BP_SYST 107
[2022-07-18 20:00] VITALS: BP_SYST 121
[2022-07-18] MEDS: LATANOPROST 2.5 ML DROPS (XALATAN) OP SCH (21:00)
[2022-07-19] VITALS: BP_SYST 113
[2022-07-19] MEDS: LEVOTHYROXINE SODIUM 0.1 MG TABLET PO SCH (06:14)
[2022-07-19] MEDS: MINERAL OIL 133 ML ENEMA RC SCH (09:00)
[2022-07-19] MEDS: FLUoxetine HCL 10 MG CAPSULE (PROzac) PO SCH (10:15)
[2022-07-19] MEDS: MULTIVITAMINS TAB 1 TABLET PO SCH (10:15)
[2022-07-19] MEDS: SUCRALFATE 1 GM TABLET PO SCH (10:15)
[2022-07-19] MEDS: predniSONE 10 MG TABLET PO SCH (10:16)
[2022-07-19] MEDS: METOPROLOL TARTRATE 50 MG TABLET PO SCH (10:16)
[2022-07-19] MEDS: COLCHICINE 0.6 MG TABLET PO SCH (10:17)
[2022-07-19] MEDS: hydrALAZINE HCL 25 MG TABLET PO SCH (10:17)
[2022-07-19] MEDS: AMIODARONE HCL 200 MG TABLET PO SCH (10:18)
[2022-07-19] MEDS: FUROSEMIDE 80 MG TABLET PO SCH (10:18)
[2022-07-19] MEDS: CHOLECALCIFEROL (VITAMIN D3) 2,000 UNIT TABLET PO SCH (10:18)
[2022-07-19] MEDS: POLYETHYLENE GLYCOL 3350, 17 GM/ POWD.PACK PO SCH (10:19)
[2022-07-19 10:20] VITALS: BP_SYST 125
[2022-07-19] MEDS: DILTIAZEM HCL 180 MG CAP.SR.24H PO SCH (10:20)
[2022-07-19] MEDS: APIXABAN 2.5 MG TABLET PO SCH (10:21)
[2022-07-19] MEDS: POTASSIUM CHLORIDE 10 MEQ TAB.PRT.SR PO SCH (10:23)
[2022-07-19 10:27] VITALS: BP_SYST 122
== END 2022-07-19 10:15 | disposition short-term general hospital (02) | DRG 313 ==
LOC: SED 18:52 → STU 21:11 → SMU 07-19 03:50
PROVIDERS: ADMIT Family Medicine; ATTEND Family Medicine
PROC: 5A1D70Z Performance of Urinary Filtration, Intermittent, Less than 6 Hours Per Day (ICD-10-PCS; principal; 2022-07-16)
PROC: 5A1D70Z Performance of Urinary Filtration, Intermittent, Less than 6 Hours Per Day (ICD-10-PCS; 2022-07-16)
DX: R07.89 Other chest pain (principal); N18.6 End stage renal disease; T82.858A Stenosis of other vascular prosthetic devices, implants and grafts, initial encounter; T82.49XA Other complication of vascular dialysis catheter, initial encounter; I13.2 Hypertensive heart and chronic kidney disease with heart failure and with stage 5 chronic kidney disease, or end stage renal disease; E44.1 Mild protein-calorie malnutrition; I48.20 Chronic atrial fibrillation, unspecified; I50.32 Chronic diastolic (congestive) heart failure; I35.0 Nonrheumatic aortic (valve) stenosis; G89.4 Chronic pain syndrome; E03.9 Hypothyroidism, unspecified; Z96.659 Presence of unspecified artificial knee joint; M19.90 Unspecified osteoarthritis, unspecified site; M10.9 Gout, unspecified; E78.5 Hyperlipidemia, unspecified; F41.9 Anxiety disorder, unspecified; F32.A Depression, unspecified; E66.9 Obesity, unspecified; Z20.822 Contact with and (suspected) exposure to COVID-19; E11.22 Type 2 diabetes mellitus with diabetic chronic kidney disease; Z91.030 Bee allergy status; Z79.899 Other long term (current) drug therapy; Z99.2 Dependence on renal dialysis; Z95.0 Presence of cardiac pacemaker; Z68.31 Body mass index [BMI] 31.0-31.9, adult
CPT/HCPCS: 36415; 71045; 80048; 80053; 83880; 84484; 85025; 85379; 90935; 93005; 99285; G0378; J2405; J3010; J7512

== ENCOUNTER 2022-07-31 15:40 | Emergency (ER) | payer MEDICARE ==
[~2022-07-31] VITALS: Ht 160 cm; Wt 73.9 kg
[~2022-07-31 15:40] MED LIST changes: +LEVO100T9 PO; -LEVO88TA5 PO; +METO100T14 PO; -TOPXL100 PO
[2022-07-31 16:07] VITALS: BP_SYST 101
--- NOTE | 2022-07-31 16:15 | NUR ---
BIB WATER ATTENDANT. C/C OF S/P MECHANICAL FALL IN SHOWER YESTERDAY AND HIT HER RIGHT LOWER LEG ON CURB OF SHOWER ENTRANCE. PRESENTS WITH LARGE HEMATOMA AND SWELLING TO RIGHT LOWER LEG. PLACED BACK INTO WAITING ROOM. DR. WATSON NOTIFIED OF PT STATUS.
--- NOTE | 2022-07-31 17:26 | NUR ---
PLACED IN HALLWAY IN MAIN ED.
--- NOTE | 2022-07-31 17:30 | NUR ---
Dr Carlos evaluating patient at bedside
--- NOTE | 2022-07-31 17:47 | NUR ---
COVID SWAB COLLECTED AND SENT TO LAB.
[2022-07-31 18:12] LABS: BASOPHILS % (AUTO) 0.9 % (0.0-2.0); EOSINOPHILS # (AUTO) 0.1 K/uL (0.0-0.4); EOSINOPHILS % (AUTO) 1.9 % (0.0-4.0); HEMATOCRIT 32.3 % (36-48); HEMOGLOBIN 10.6 g/dL (12.0-16.0); LYMPHOCYTES # (AUTO) 1.1 K/uL (1.0-5.5); LYMPHOCYTES % (AUTO) 20.5 % (20.5-51.5); MEAN CORPUSCULAR HEMOGLOBIN 30 pg (27-31); MEAN CORPUSCULAR HGB CONC 33 % (32-36); MEAN CORPUSCULAR VOLUME 92 fL (79.0-98.0); MONOCYTES # (AUTO) 0.6 K/uL (0.0-1.0); NEUTROPHILS # (AUTO) 3.7 K/uL (1.8-7.7); NEUTROPHILS % (AUTO) 66.7 % (40.0-70.0); PLATELET COUNT (AUTO) 146 K/uL (130-430); RED BLOOD CELL COUNT(AUTO) 3.53 MIL/uL (4.2-6.2); WHITE BLOOD COUNT (AUTO) 5.6 K/uL (4.8-10.8)
[2022-07-31] MEDS ORDERED: MORPHINE 4 MG INJ. 4 MG/ML VIAL IM ONE (18:30)
[2022-07-31 18:42] LABS: INR 1.1 (0.8-1.2)
--- NOTE | 2022-07-31 19:15 | NUR ---
Received report from MARIBELL Epstein; assuming care of patient at this time.
--- NOTE | 2022-07-31 19:18 | NUR ---
Patient A/Ox4, VSS, resp even and unlabored. Patient is lying in bed with side rails raised. Patient has a notable hematoma noted to the LRE, no open wound noted. Patient reports pain 6/10 at this time. Nad noted at this time.
[2022-07-31 19:51] LABS: ALANINE AMINOTRANSFERASE 12 U/L (12-78); ALBUMIN 3.2 g/dL (3.4-4.8); ANION GAP 6 (5-15); ASPARTATE AMINOTRANSFERASE 11 U/L (10-37); CALCIUM 8.9 mg/dL (8.4-11.0); CHLORIDE 101 mmol/L (98-107); CREATININE 2.15 mg/dL (0.55-1.30); GLUCOSE 110 mg/dL (70-99); POTASSIUM 3.6 mmol/L (3.5-5.1); TOTAL BILIRUBIN 0.5 mg/dL (0.0-1.0); UREA NITROGEN, BLOOD 10 mg/dL (8-21)
--- NOTE | 2022-07-31 20:33 | NUR ---
# 22 gauge angiocath placed to RIGHT FOREARM. Use of asceptic technique. Opsite placed over site. Blood return noted. Flushed with 10 cc of normal saline. No evidence of infiltration noted. Patient tolerated well.
[2022-07-31] MEDS ORDERED: ONDANSETRON HCL 4 MG/2 ML VIAL IVP ONE ×2 (20:50→21:00)
[2022-07-31] MEDS ORDERED: MORPHINE 4 MG INJ. 4 MG/ML VIAL IVP ONE ×2 (20:50→21:00)
--- NOTE | 2022-07-31 21:10 | NUR ---
Patient resting comfortably in bed with RLE raised on pillow and side rails raised. Patient issued a cold pack wrapped in towel and placed on RLE to patient's comfort level. Nad noted at this time.
[2022-08-01] MEDS ORDERED: HYDROcodone/ACETAMIN 5-325 MG TAB (NORCO/ VICODIN) PO ONE (00:30)
[2022-08-01] MEDS ORDERED: NS 500 ML IV ONE (00:45)
[2022-08-01] MEDS ORDERED: IBUPROFEN 400 MG TABLET PO ONE (00:45)
--- NOTE | 2022-08-01 03:17 | NUR ---
Called [facility] and spoke with MARIBELL Perez to give report for this patient .
[2022-08-01 03:20] VITALS: BP_SYST 95
--- NOTE | 2022-08-01 03:20 | NUR ---
Patient to be transferred to [facility] ER. Is being transferred due to higher level of care. Receiving facility has accepting physician and available space. ER physician has signed transfer form. Patient or responsible green party has agreed to transfer and signed form. Patient belongings inventoried and will be sent with patient. Copy of nursing notes, lab reports, EKG, Physicians Orders and X-rays to be sent with patient. Report called to MARIBELL Perez at receiving facility. Receiving physician is Dr Hoffman. [facility] ambulance service has been called for transfer. ETA is 0230.
== END 2022-08-01 03:20 | disposition short-term general hospital (02) ==
LOC: SED 15:40
DX: S80.11XA Contusion of right lower leg, initial encounter (principal); I11.0 Hypertensive heart disease with heart failure; I50.9 Heart failure, unspecified; E11.9 Type 2 diabetes mellitus without complications; Z91.030 Bee allergy status; Z79.899 Other long term (current) drug therapy; Z20.822 Contact with and (suspected) exposure to COVID-19; W18.2XXA Fall in (into) shower or empty bathtub, initial encounter; Y93.89 Activity, other specified; Y92.89 Other specified places as the place of occurrence of the external cause; Y99.8 Other external cause status
CPT/HCPCS: 99285; 96374; 96375; 87426; 80053; 85025; 85610; 85730; 36415; 73590; 96372; 96361; J2405; J2270; J7030

== ENCOUNTER 2022-09-06 12:11 | Emergency (ER) | payer MEDICARE ==
[~2022-09-06] VITALS: Ht 160 cm; Wt 74.8 kg
[2022-09-06 12:13] VITALS: BP_SYST 132
--- NOTE | 2022-09-06 12:39 | NUR ---
blood sugar 100 notified charge.
--- NOTE | 2022-09-06 12:45 | NUR ---
PT GIVEN ORANGE JUICE PER REQUEST, TOLERATED WELL
[2022-09-06 13:06] LABS: ANION GAP 7 (5-15); CALCIUM 8.9 mg/dL (8.4-11.0); CHLORIDE 100 mmol/L (98-107); CREATININE 4.02 mg/dL (0.55-1.30); GLUCOSE 111 mg/dL (70-99); UREA NITROGEN, BLOOD 30 mg/dL (8-21)
[2022-09-06 13:11] LABS: ALANINE AMINOTRANSFERASE 8 U/L (12-78); ALBUMIN 3.2 g/dL (3.4-4.8); ASPARTATE AMINOTRANSFERASE 29 U/L (10-37); TOTAL BILIRUBIN 0.5 mg/dL (0.0-1.0)
--- NOTE | 2022-09-06 14:00 | NUR ---
PT BIB BLS TO ER TO ADDRESS VASCULAR FISTULA ACCESS IN RIGHT ARM. PT PRESENTS WITH GAUZE AND PRESSURE DRESSING CONTROLLING BLEED. PT COMPLAINS OF PAIN AND SENSITIVITY. CAP REFILL <3 SECOND.
[2022-09-06 14:01] LABS: BASOPHILS # (AUTO) 0.1 K/uL (0.0-0.2); BASOPHILS % (AUTO) 1.1 % (0.0-2.0); EOSINOPHILS # (AUTO) 0.1 K/uL (0.0-0.4); EOSINOPHILS % (AUTO) 2.2 % (0.0-4.0); HEMATOCRIT 30.3 % (36-48); LYMPHOCYTES # (AUTO) 1.2 K/uL (1.0-5.5); LYMPHOCYTES % (AUTO) 25.3 % (20.5-51.5); MEAN CORPUSCULAR HEMOGLOBIN 31 pg (27-31); MEAN CORPUSCULAR HGB CONC 33 % (32-36); MEAN CORPUSCULAR VOLUME 94 fL (79.0-98.0); MONOCYTES # (AUTO) 0.5 K/uL (0.0-1.0); MONOCYTES % (AUTO) 11.5 % (1.7-9.3); NEUTROPHILS # (AUTO) 2.9 K/uL (1.8-7.7); NEUTROPHILS % (AUTO) 59.9 % (40.0-70.0); PLATELET COUNT (AUTO) 144 K/uL (130-430); RED BLOOD CELL COUNT(AUTO) 3.23 MIL/uL (4.2-6.2); RED CELL DISTRIBUTION WIDTH 15.7 % (9.0-15.0); WHITE BLOOD COUNT (AUTO) 4.8 K/uL (4.8-10.8)
--- NOTE | 2022-09-06 14:10 | NUR ---
Patient to ER bed H2 to gown for evaluation. Side rails up. Report given to MOISES PEREZ.
--- NOTE | 2022-09-06 15:53 | NUR ---
Pt blood sugar 93, pt denies food and requests grape juice.
--- NOTE | 2022-09-06 17:05 | NUR ---
Dr Ramirez evaluating patient at bedside
[2022-09-06] MEDS ORDERED: HYDROcodone/ACETAMIN 7.5-325 MG TAB PO ONE (17:30)
--- NOTE | 2022-09-06 18:57 | NUR ---
Patient given written and verbal discharge instructions and verbalizes understanding. ER MD discussed with patient the results and treatment provided. Patient in stable condition. ID arm band removed. Patient educated on pain management and to follow up with PMD. Opportunity for questions provided and answered. Medication side effect fact sheet provided.
[2022-09-06 18:58] VITALS: BP_SYST 132
== END 2022-09-06 18:58 | disposition home or self-care (01) ==
LOC: SED 12:11
DX: R58 Hemorrhage, not elsewhere classified (principal); Z91.048 Other nonmedicinal substance allergy status; E11.9 Type 2 diabetes mellitus without complications; I11.0 Hypertensive heart disease with heart failure; I50.9 Heart failure, unspecified; Z79.899 Other long term (current) drug therapy
CPT/HCPCS: 36415; 80053; 85025; 99283

== ENCOUNTER 2022-10-09 14:58 | Inpatient (IN) | payer MEDICARE ==
[~2022-10-09] VITALS: Ht 160 cm; Wt 77.6 kg
[2022-10-09 15:03] VITALS: BP_SYST 150
--- NOTE | 2022-10-09 15:03 | NUR ---
Placed in room 03 . Placed on glue jointer feeder, blood pressure machine and pulse oximeter. To gown for exam. Side rails up. Report given to MARIBELL Pan
--- NOTE | 2022-10-09 15:10 | NUR ---
Patient brougth in ALS from [facility] for shortness of breath worsening x 5 days. Denies any chest pain. Patient arrived with albuterol nebulizer treatment. Patient has dialysis on MWF did not go today because she was not feeling well. Patient has a fistula on right and left arms.
[2022-10-09] MEDS ORDERED: VENL25TA4 PO (15:23)
[2022-10-09] MEDS ORDERED: SEN30 PO (15:23)
[2022-10-09] MEDS ORDERED: IPRA0.2S53 IH (15:23)
[2022-10-09] MEDS ORDERED: XALEYE OP (15:23)
[2022-10-09] MEDS ORDERED: POLY17PO4 PO (15:23)
[2022-10-09] MEDS ORDERED: AMIO200T66 PO (15:23)
[2022-10-09] MEDS ORDERED: CHOL100038 PO (15:23)
[2022-10-09] MEDS ORDERED: LIDOINT TP (15:23)
[2022-10-09] MEDS ORDERED: TRAZ-250 PO (15:23)
[2022-10-09] MEDS ORDERED: LIP80 PO (15:23)
[2022-10-09] MEDS ORDERED: DOCU-156 PO (15:23)
[2022-10-09] MEDS ORDERED: FOLI0.8T42 PO (15:23)
[2022-10-09] MEDS ORDERED: HYDR-4037 PO (15:23)
[2022-10-09] MEDS ORDERED: REN800 PO (15:23)
--- NOTE | 2022-10-09 15:25 | NUR ---
patient arrives with POLST stating DNR with [facility]
--- NOTE | 2022-10-09 15:25 | NUR ---
Medication reconciliation completed with information provided by [facility]. Any prior medication reconciliation on file was reviewed and corrected.
--- NOTE | 2022-10-09 15:37 | NUR ---
COVID SAMPLE OBTAINED AND SENT TO LAB.
--- NOTE | 2022-10-09 16:15 | NUR ---
LAB UNABLE TO DRAW BLOOD. EDP MADE AWARE AND OK'D TO DRAW BLOOD TO LEGS.
[2022-10-09 16:54] LABS: BASOPHILS % (AUTO) 1.3 % (0.0-2.0); EOSINOPHILS # (AUTO) 0.2 K/uL (0.0-0.4); EOSINOPHILS % (AUTO) 4.1 % (0.0-4.0); HEMATOCRIT 30.2 % (36-48); HEMOGLOBIN 10.1 g/dL (12.0-16.0); LYMPHOCYTES # (AUTO) 0.8 K/uL (1.0-5.5); LYMPHOCYTES % (AUTO) 21.2 % (20.5-51.5); MEAN CORPUSCULAR HEMOGLOBIN 32 pg (27-31); MEAN CORPUSCULAR HGB CONC 33 % (32-36); MEAN CORPUSCULAR VOLUME 95 fL (79.0-98.0); MONOCYTES # (AUTO) 0.3 K/uL (0.0-1.0); MONOCYTES % (AUTO) 9.4 % (1.7-9.3); NEUTROPHILS # (AUTO) 2.3 K/uL (1.8-7.7); PLATELET COUNT (AUTO) 162 K/uL (130-430); RED BLOOD CELL COUNT(AUTO) 3.18 MIL/uL (4.2-6.2); WHITE BLOOD COUNT (AUTO) 3.7 K/uL (4.8-10.8)
--- NOTE | 2022-10-09 16:58 | NUR ---
H/L STARTED TO LEFT LEG #20GAUGE AND BLOOD DRAWN SENT TO LAB, TOLERATED WELL.
[2022-10-09 17:15] LABS: ANION GAP 6 (5-15); CALCIUM 8.8 mg/dL (8.4-11.0); CHLORIDE 97 mmol/L (98-107); CREATININE 5.79 mg/dL (0.55-1.30); GLUCOSE 96 mg/dL (70-99); UREA NITROGEN, BLOOD 40 mg/dL (8-21)
[2022-10-09 17:23] LABS: ALANINE AMINOTRANSFERASE 13 U/L (12-78); ASPARTATE AMINOTRANSFERASE 16 U/L (10-37); TOTAL BILIRUBIN 0.4 mg/dL (0.0-1.0)
[2022-10-09] MEDS ORDERED: KETOROLAC TROMETHAMINE 30 MG VIAL IVP ONE (20:15)
--- NOTE | 2022-10-09 21:03 | NUR ---
Admit bed requested Patient will be admitted to care of . Admitted to unit.TELEMETRY Diagnosis RENAL FAILURE Inpatient (Yes or No) YES Observation (Yes or No) NO Orientation concerns or request close to nursing station (Yes or No) NO Covid Status NEGATIVE On vent or bipap NO Isolation requirements NO Needs a sitter NO From Home (Yes or if No enter name of facility) YES Requires Dialysis (Yes or No) YES Med Rec Completed (Yes of No) YES
[2022-10-09] MEDS ORDERED: MUPIROCIN 2% TOPICAL OINTMENT 22 GM NS PRN (21:30)
[2022-10-09] MEDS ORDERED: ACETAMINOPHEN 325 MG TABLET PO PRN (21:30)
[2022-10-09] MEDS: hydrALAZINE HCL 10 MG TABLET PO SCH (21:30)
[2022-10-09] MEDS ORDERED: LORazepam 2 MG/ML VIAL IVP PRN (21:30)
[2022-10-09] MEDS ORDERED: MAGNESIUM SULFATE 50 ML IV PRN (21:30)
[2022-10-09] MEDS ORDERED: MORPHINE 2 MG/ML INJ. SYRINGE IVP PRN (21:30)
[2022-10-09] MEDS ORDERED: ZOLPIDEM TARTRATE 5 MG TABLET PO PRN (21:30)
[2022-10-09] MEDS ORDERED: NALOXONE HCL 0.4 MG/ML AMP (NARCAN) IVP PRN ×2 (21:30)
[2022-10-09] MEDS ORDERED: POTASSIUM CHLORIDE 20 MEQ TAB.PRT.SR PO PRN (21:30)
[2022-10-09] MEDS ORDERED: DOCUSATE SODIUM 100 MG CAPSULE PO PRN (21:30)
[2022-10-09 21:42] VITALS: BP_SYST 171
--- NOTE | 2022-10-10 00:40 | NUR ---
INITIAL NOTES: RECEIVED REPORT FROM ER NURSE , PT IS AWAKE ,AND ORIENTED , PT STATED SHE IS FORGETFUL ; NOT IN ANY ACUTE DISTRESS; VITALS ARE STABLE ASSESSMENT COMPLETED ; NOTICED LEFT ARM AVS WITH SWELLING ,GOOD BRUIT ANF THRILL NOTICED ALSO PT HAS FISTULA TO THE RIGHT WRIST , WITH GOOD BRUIT AND THRILL . NOTICED SUSAN BANDAGE DRESSING TO THE RIGHT LOWER LEG , REMOVED DRESSING NOTICED BLACK SCAB WITH PERIWOUND DRY , NO DRIANGE NOTICED , PICTURES TAKEN AND APPLIED FOAM DRESSING , PT STATED SHE PREFER SUSAN BANDAGE , APPLIED SUSAN BANDAGE OVER IT . NOTICED CAROLYN LOWER LEG WITH EDEMA . BED IN LOW AND LOCK POSITION, CALL BARAJAS IN REACH ; BED ALARM IS ON .
--- NOTE | 2022-10-10 00:45 | NUR ---
Patient will be admitted to care of DR SAINZ. Admitted to unit. Will go to room . Belongings list completed. Complete and up to date summary report printed. SBAR report to be given at bedside with opportunity for questions.
[2022-10-10] MEDS: FUROSEMIDE 80 MG TABLET PO SCH ×3 (00:58→21:15)
[2022-10-10] MEDS: METOPROLOL TARTRATE 50 MG TABLET PO SCH ×3 (01:01→21:16)
[2022-10-10 01:22] VITALS: BP_SYST 133
--- NOTE | 2022-10-10 01:30 | NUR ---
PT CLEANED : PT STATED SHE IS INCONTINENT WITH BM , PT CLEANED WITH THE HELP OF TABLE AND DESK FINISHER ; PT TURNED AND REPOSITIONED; NOTICED MILD BLANCHABLE REDNESS TO THE BUTTOCKS , APPLIED Z GUARD .
--- NOTE | 2022-10-10 02:56 | NUR ---
CONSULTATION PAGED/CALLED Reason for Consultation: ESRD Person Who was Notified: DUYEN Consulting Physician: MAURO DOCTOR VIN IS PIPE FITTINGS MOLDER Final Cigar And Box Examiner Specialty: Ordering Physician: GRIS
--- NOTE | 2022-10-10 04:30 | NUR ---
PT IS COMFORTABLE ; SLEEPING ON AND OFF , NOT IN ANY ACUTE DISTRESS;WILL CONTINUE TO MONITOR PT .
[2022-10-10] MEDS: LEVOTHYROXINE SODIUM 0.1 MG TABLET PO SCH (06:23)
--- NOTE | 2022-10-10 06:30 | NUR ---
PT ASKED FOR BED HUERTA , BED HUERTA PROVIDED ; PT VOIDED YOUSUF COLOR URINE ; PT CLEANED ; PT IS COMFORTABLE . ALL NEEDS ATTENDED .
--- NOTE | 2022-10-10 07:04 | NUR ---
CLOSING NOTES: PT IS AWAKE , NOT IN ANY ACUTE DISTRESS ; ALL NEEDS ATTENDED ; WILL CONTINUE TO MONITOR AND WILL ENDORSE TO NEXT SHIFT NURSE .
[2022-10-10 07:33] LABS: HEMATOCRIT 24.2 % (36-48); MEAN CORPUSCULAR HEMOGLOBIN 31 pg (27-31); MEAN CORPUSCULAR HGB CONC 33 % (32-36); MEAN CORPUSCULAR VOLUME 95 fL (79.0-98.0); PLATELET COUNT (AUTO) 180 K/uL (130-430); RED BLOOD CELL COUNT(AUTO) 2.54 MIL/uL (4.2-6.2); RED CELL DISTRIBUTION WIDTH 14.6 % (9.0-15.0); WHITE BLOOD COUNT (AUTO) 5.2 K/uL (4.8-10.8)
[2022-10-10 07:50] VITALS: BP_SYST 154
[2022-10-10 08:02] LABS: ANION GAP 10 (5-15); CALCIUM 8.7 mg/dL (8.4-11.0); CHLORIDE 95 mmol/L (98-107); CREATININE 6.06 mg/dL (0.55-1.30); GLUCOSE 82 mg/dL (70-99); UREA NITROGEN, BLOOD 44 mg/dL (8-21)
[2022-10-10] MEDS: hydrALAZINE HCL 10 MG TABLET PO SCH ×3 (09:00→21:17)
[2022-10-10] MEDS: ONDANSETRON HCL 4 MG/2 ML VIAL IVP PRN ×2 (09:20→15:01)
[2022-10-10] MEDS: NEPHROVITE, (FOLIC ACID/VITAMIN B COMP W-C 1 TAB) PO SCH (09:25)
[2022-10-10] MEDS: DOCUSATE SODIUM 100 MG CAPSULE PO SCH ×2 (09:26→21:15)
[2022-10-10] MEDS: SEVELAMER CARBONATE 800 MG TABLET PO SCH ×3 (09:26→18:47)
[2022-10-10] MEDS: CINACALCET HCL 30 MG TABLET PO SCH (09:26)
[2022-10-10] MEDS: DILTIAZEM HCL 180 MG CAP.SR.24H PO SCH (09:27)
[2022-10-10] MEDS: AMIODARONE HCL 200 MG TABLET PO SCH (09:28)
[2022-10-10] MEDS: APIXABAN 2.5 MG TABLET PO SCH ×2 (09:29→21:18)
[2022-10-10] MEDS: VENLAFAXINE HCL 50 MG TABLET PO SCH ×2 (09:33→21:20)
--- NOTE | 2022-10-10 10:47 | NUR ---
CONSULTATION PAGED/CALLED Reason for Consultation: DIALYSIS Person Who was Notified: Consulting Physician: Firearms Sales Associate Specialty: Ordering Physician:
[2022-10-10 12:00] VITALS: BP_SYST 143
[2022-10-10 12:59] LABS: BAND % (MANUAL) 1 % (0-6); LYMPHOCYTES % (MANUAL) 27 % (20-46)
[2022-10-10 13:00] LABS: BASOPHILS % (MANUAL) 0 % (0-2); EOSINOPHILS % (MANUAL) 3 % (0-7); MONOCYTES % (MANUAL) 7 % (0-11)
[2022-10-10 16:00] VITALS: BP_SYST 140
--- NOTE | 2022-10-10 17:46 | NUR ---
PT HAVING HD, COMPLAIN OF TWITCHING ON HER LEGS, GIVEN ATIVAN TO HELP PT RELAX. DR DAVE HERE AND SEEN PT, PT INFORMED MD OF THE TWITCHING MOVEMENT OF THE LEGS.
[2022-10-10] MEDS: ATORVASTATIN 20 MG TABLET PO SCH (18:46)
[2022-10-10] MEDS: traZODone HCL 50 MG TABLET (DESYREL) PO SCH (18:46)
[2022-10-10] MEDS: LATANOPROST 2.5 ML DROPS (XALATAN) OP SCH (18:47)
--- NOTE | 2022-10-10 18:53 | NUR ---
PT STILL GETTING HD THIS TIME. PER HD RN , BP IS FINE.
--- NOTE | 2022-10-10 20:00 | NUR ---
INITIAL NOTES: PT IS SLEEPING ,LETHARGIC , EASILY AROUSABLE , NOT IN ANY ACUTE DISTRESS; VITALS ARE STABLE,ON O2 2L NC ; ASSESSMENT COMPLETED ;DIALYSIS COMPLETED START OF THE SHIFT ;LEFT ARM AVS WITH SWELLING PRESENT ,GOOD BRUIT AND THRILL NOTICED, ALSO PT HAS FISTULA TO THE RIGHT WRIST , WITH GOOD BRUIT AND THRILL . NOTICED SUSAN BANDAGE DRESSING TO THE RIGHT LOWER LEG , NOTICED CAROLYN LOWER LEG WITH EDEMA . BED IN LOW AND LOCK POSITION, CALL BARAJAS IN REACH ; BED ALARM IS ON .
[2022-10-10 21:00] VITALS: BP_SYST 150
--- NOTE | 2022-10-10 21:45 | NUR ---
MEDICATION: DUE MEDS GIVEN , PT IS NOT IN ANY ACUTE DISTRESS; WILL CONTINUE TO MONITOR PT.
[2022-10-11 00:23] VITALS: BP_SYST 145
--- NOTE | 2022-10-11 01:00 | NUR ---
RN NOTES: PT IS SLEEPING , EASILY AROUSABLE TO THE NAME ; NOT IN AN ACUTE DISTRESS ; HR IS ON THE 60S AFIB , WILL CONITNUE TO MONITOR PT
--- NOTE | 2022-10-11 05:30 | NUR ---
PT CLEANED : PT IS INCONTINENT WITH URINE , PT CLEANED WITH THE HELP OF FREIGHT BRAKE OPERATOR ; PT TURNED AND REPOSITIONED; NOTICED MILD BLANCHABLE REDNESS TO THE BUTTOCKS , APPLIED Z GUARD .
[2022-10-11] MEDS: LEVOTHYROXINE SODIUM 0.1 MG TABLET PO SCH (06:34)
[2022-10-11 06:45] LABS: BASOPHILS # (AUTO) 0.1 K/uL (0.0-0.2); BASOPHILS % (AUTO) 1.7 % (0.0-2.0); EOSINOPHILS # (AUTO) 0.2 K/uL (0.0-0.4); EOSINOPHILS % (AUTO) 4.8 % (0.0-4.0); HEMATOCRIT 26.5 % (36-48); HEMOGLOBIN 8.6 g/dL (12.0-16.0); LYMPHOCYTES # (AUTO) 0.7 K/uL (1.0-5.5); LYMPHOCYTES % (AUTO) 18.1 % (20.5-51.5); MEAN CORPUSCULAR HEMOGLOBIN 31 pg (27-31); MEAN CORPUSCULAR HGB CONC 33 % (32-36); MEAN CORPUSCULAR VOLUME 96 fL (79.0-98.0); MONOCYTES # (AUTO) 0.5 K/uL (0.0-1.0); MONOCYTES % (AUTO) 12.3 % (1.7-9.3); NEUTROPHILS # (AUTO) 2.6 K/uL (1.8-7.7); NEUTROPHILS % (AUTO) 63.1 % (40.0-70.0); PLATELET COUNT (AUTO) 163 K/uL (130-430); RED BLOOD CELL COUNT(AUTO) 2.76 MIL/uL (4.2-6.2); RED CELL DISTRIBUTION WIDTH 14.9 % (9.0-15.0); WHITE BLOOD COUNT (AUTO) 4.1 K/uL (4.8-10.8)
[2022-10-11 06:59] LABS: ANION GAP 9 (5-15); CALCIUM 8.2 mg/dL (8.4-11.0); CHLORIDE 100 mmol/L (98-107); CREATININE 3.75 mg/dL (0.55-1.30); GLUCOSE 84 mg/dL (70-99); UREA NITROGEN, BLOOD 25 mg/dL (8-21)
--- NOTE | 2022-10-11 07:48 | NUR ---
CLOSING NOTES: REPORT GIVEN TO RN , PT IS SLEEPING ,NOT IN ANY ACUTE DISTRESS; ALL NEEDS ATTENDED .
[2022-10-11 08:33] VITALS: BP_SYST 143
--- NOTE | 2022-10-11 09:41 | NUR ---
Dietitian Recommendations * Continue renal standard diet * Consider Nepro (chocolate flavor) once daily due to pt request * Consider bowel regimen GS, MPH, RD Please refer to RD Assessment for further details. Thanks! Addendum: 10/11/22 at [address] Amended: Links added.
[2022-10-11] MEDS: DOCUSATE SODIUM 100 MG CAPSULE PO SCH ×2 (10:04→20:12)
[2022-10-11] MEDS: DILTIAZEM HCL 180 MG CAP.SR.24H PO SCH (10:04)
[2022-10-11] MEDS: hydrALAZINE HCL 10 MG TABLET PO SCH ×3 (10:05→20:12)
[2022-10-11] MEDS: CINACALCET HCL 30 MG TABLET PO SCH (10:05)
[2022-10-11] MEDS: SEVELAMER CARBONATE 800 MG TABLET PO SCH ×3 (10:05→17:41)
[2022-10-11] MEDS: AMIODARONE HCL 200 MG TABLET PO SCH (10:06)
[2022-10-11] MEDS: FUROSEMIDE 80 MG TABLET PO SCH ×2 (10:06→20:12)
[2022-10-11] MEDS: METOPROLOL TARTRATE 50 MG TABLET PO SCH ×2 (10:07→20:12)
[2022-10-11] MEDS: VENLAFAXINE HCL 50 MG TABLET PO SCH ×2 (10:08→20:14)
[2022-10-11] MEDS: APIXABAN 2.5 MG TABLET PO SCH ×2 (10:12→20:13)
[2022-10-11] MEDS: NEPHROVITE, (FOLIC ACID/VITAMIN B COMP W-C 1 TAB) PO SCH (11:15)
--- NOTE | 2022-10-11 12:36 | NUR ---
ROUNDS LATE ENTRY DUE TO PT CARE 11:40 IN THE ROOM WITH PATIENT TO INFORMED HER THAT SHE IS BEING DISCHARGE. PATIENT STATED THAT SHE IS NOT READY TO GO HOME SHE FEELS SHORT OF BREATH WHEN TALKING AND EATING. EXPLAINED TO PT THAT IT MAY BE BECAUSE OF EXCESS FLUID. PATIENT IN BED ON 3 LITERS O2 NASAL CANNULA. I INFORMED PATIENT THAT WE WILL TRY TO DISCONTINUE THE OXYGEN FOR HALF AN HOUR AND CHECK AGAIN AFTER. PATIENT AGREED 12:15- BACK IN THE ROOM. PATIENT IS AAOX4. O2 SAT ON ROOM AIR 74-76%. STARTED PT BACK ON 3 LITERS NASAL CANNULA. SATS IMPROVED TO 96-97%. CALLED AND NOTIFIED DR LANDRY AND RECEIVED ORDERS
[2022-10-11] MEDS ORDERED: COMMUNICATION ORDER XX ONE (12:45)
[2022-10-11] MEDS ORDERED: PIPERACILLIN/TAZOBACTAM 2.25 GM/ D5W 50 ML IV ONE ×2 (14:00)
[2022-10-11] MEDS: MORPHINE 2 MG/ML INJ. SYRINGE IVP PRN (14:18)
[2022-10-11] MEDS: IPRATROPIUM BROM 0.5 MG/2.5 ML VIAL.NEB (ATROVENT) INH PRN (14:24)
[2022-10-11] MEDS ORDERED: SULF1TAB47 PO (15:05)
[2022-10-11 15:20] VITALS: BP_SYST 137
[2022-10-11] MEDS: traZODone HCL 50 MG TABLET (DESYREL) PO SCH (17:40)
[2022-10-11] MEDS: ATORVASTATIN 20 MG TABLET PO SCH (17:41)
[2022-10-11] MEDS: LATANOPROST 2.5 ML DROPS (XALATAN) OP SCH (17:51)
[2022-10-11 20:00] VITALS: BP_SYST 120
[2022-10-12] VITALS (7 sets, daily range): BP systolic 101–141
[2022-10-12] MEDS: ONDANSETRON HCL 4 MG/2 ML VIAL IVP PRN (04:58)
[2022-10-12] MEDS: LEVOTHYROXINE SODIUM 0.1 MG TABLET PO SCH (06:18)
[2022-10-12 06:35] LABS: ANION GAP 7 (5-15); CALCIUM 8.4 mg/dL (8.4-11.0); CHLORIDE 97 mmol/L (98-107); GLUCOSE 89 mg/dL (70-99); UREA NITROGEN, BLOOD 36 mg/dL (8-21)
[2022-10-12 07:52] LABS: BASOPHILS # (AUTO) 0.1 K/uL (0.0-0.2); BASOPHILS % (AUTO) 1.1 % (0.0-2.0); EOSINOPHILS # (AUTO) 0.3 K/uL (0.0-0.4); EOSINOPHILS % (AUTO) 5.8 % (0.0-4.0); HEMATOCRIT 27.1 % (36-48); HEMOGLOBIN 8.7 g/dL (12.0-16.0); LYMPHOCYTES # (AUTO) 1.2 K/uL (1.0-5.5); LYMPHOCYTES % (AUTO) 20.6 % (20.5-51.5); MEAN CORPUSCULAR HEMOGLOBIN 31 pg (27-31); MEAN CORPUSCULAR HGB CONC 32 % (32-36); MEAN CORPUSCULAR VOLUME 95 fL (79.0-98.0); MONOCYTES # (AUTO) 0.8 K/uL (0.0-1.0); MONOCYTES % (AUTO) 13.8 % (1.7-9.3); NEUTROPHILS # (AUTO) 3.3 K/uL (1.8-7.7); NEUTROPHILS % (AUTO) 58.7 % (40.0-70.0); PLATELET COUNT (AUTO) 143 K/uL (130-430); RED BLOOD CELL COUNT(AUTO) 2.84 MIL/uL (4.2-6.2); RED CELL DISTRIBUTION WIDTH 14.7 % (9.0-15.0); WHITE BLOOD COUNT (AUTO) 5.6 K/uL (4.8-10.8)
[2022-10-12] MEDS: VENLAFAXINE HCL 50 MG TABLET PO SCH ×2 (09:00→22:26)
[2022-10-12] MEDS: DOCUSATE SODIUM 100 MG CAPSULE PO SCH ×2 (10:58→22:26)
[2022-10-12] MEDS: CINACALCET HCL 30 MG TABLET PO SCH (10:59)
[2022-10-12] MEDS: AMIODARONE HCL 200 MG TABLET PO SCH (11:00)
[2022-10-12] MEDS: FUROSEMIDE 80 MG TABLET PO SCH ×2 (11:00→21:00)
[2022-10-12] MEDS: hydrALAZINE HCL 10 MG TABLET PO SCH ×3 (11:01→21:00)
[2022-10-12] MEDS: NEPHROVITE, (FOLIC ACID/VITAMIN B COMP W-C 1 TAB) PO SCH (11:01)
[2022-10-12] MEDS: APIXABAN 2.5 MG TABLET PO SCH ×2 (11:03→22:30)
[2022-10-12] MEDS: METOPROLOL TARTRATE 50 MG TABLET PO SCH ×2 (11:04→21:00)
--- NOTE | 2022-10-12 11:30 | NUR ---
Patient is still on dialysis at this time. Received a call from February , from and asked patient's saturation on RA. Instructed February to call back in 10 mins to find out. Patient had no c/o SOB, no acute distress.
[2022-10-12] MEDS: PIPERACILLIN/TAZOBACTAM 2.25 GM/ D5W 50 ML IV SCH ×4 (12:09→22:25)
[2022-10-12] MEDS: SEVELAMER CARBONATE 800 MG TABLET PO SCH ×2 (12:10→18:17)
[2022-10-12] MEDS: DILTIAZEM HCL 180 MG CAP.SR.24H PO SCH (12:11)
--- NOTE | 2022-10-12 12:30 | NUR ---
Report received from Leah Rogel. HD in progress. Pt is a/ox4, vs stable, no acute distress noted, NSR on tele. Denies any pain. Assuming care for pt. Will give meds post dialysis.
--- NOTE | 2022-10-12 12:30 | NUR ---
Report's given to Casie. Patient's still on dialysis in no acute distress.
--- NOTE | 2022-10-12 14:15 | NUR ---
HD COMPLETED, PER HD RN 2L WAS TAKEN OUT. PT STABLE NO ACUTE DISTRESS NOTED. PT DID NOT WANT TO EAT LUNCH. FOOD TRAY REMOVED PER PT REQUEST.
--- NOTE | 2022-10-12 14:45 | NUR ---
FOUND PT DILAYSIS SITE LEFT UPPER ARM BLEEDING. GOWN AND GILBERT WAS SATURATED WITH BLOOD. APPLIED 4X4 GAUZE DRESSING AND APPLIED PRESSURE. CALLED BPM DEVELOPER KYM FOR ASSISTANCE. HEMOSTAT PARTIAL DRESSING APPLIED BY BPM DEVELOPER TO BLEEDING SITE AND SANDBAG PRESSURE APPLIED TO BLEEDING SITE. PT VS REMAINS STABLE. WILL CLOSELY MONITOR FOR BLEEDING.
--- NOTE | 2022-10-12 17:30 | NUR ---
02 ON RA 83% SATURATION. 02 SATURATION BACK TO 94-96% WHEN PLACED PT BACK ON 2L VIA NC. NO SOB OR ANY SIGN OF ANY RESPIRATORY DISTRESS. NO MORE BLEEDING NOTED TO L A FISTULA. PT STABLE AT THIS TIME.
[2022-10-12] MEDS: traZODone HCL 50 MG TABLET (DESYREL) PO SCH (18:00)
[2022-10-12] MEDS: ATORVASTATIN 20 MG TABLET PO SCH (18:17)
[2022-10-12] MEDS: LATANOPROST 2.5 ML DROPS (XALATAN) OP SCH (18:24)
--- NOTE | 2022-10-12 19:38 | NUR ---
PASSED ON TO NIGHT MARIBELL TOWNSEND THAT PT TRAZADONE WAS NOT GIVEN AT 1800 PER PT REQUEST. WOULD LIKE TO TAKE IT LATER TONIGHT BEFORE SLEEP.
[2022-10-13 01:28] VITALS: BP_SYST 143
[2022-10-13] MEDS: ONDANSETRON HCL 4 MG/2 ML VIAL IVP PRN (02:54)
[2022-10-13] MEDS: LEVOTHYROXINE SODIUM 0.1 MG TABLET PO SCH (06:50)
[2022-10-13 08:24] LABS: HEMATOCRIT 26.5 % (36-48); HEMOGLOBIN 8.6 g/dL (12.0-16.0); MEAN CORPUSCULAR HEMOGLOBIN 31 pg (27-31); MEAN CORPUSCULAR HGB CONC 32 % (32-36); MEAN CORPUSCULAR VOLUME 97 fL (79.0-98.0); PLATELET COUNT (AUTO) 153 K/uL (130-430); RED BLOOD CELL COUNT(AUTO) 2.74 MIL/uL (4.2-6.2); RED CELL DISTRIBUTION WIDTH 14.5 % (9.0-15.0); WHITE BLOOD COUNT (AUTO) 4.4 K/uL (4.8-10.8)
[2022-10-13 08:28] LABS: ANION GAP 6 (5-15); CALCIUM 8.7 mg/dL (8.4-11.0); CHLORIDE 99 mmol/L (98-107); CREATININE 3.64 mg/dL (0.55-1.30); GLUCOSE 124 mg/dL (70-99); UREA NITROGEN, BLOOD 26 mg/dL (8-21)
[2022-10-13 08:57] VITALS: BP_SYST 139
[2022-10-13] MEDS: SEVELAMER CARBONATE 800 MG TABLET PO SCH ×2 (10:06→18:40)
[2022-10-13] MEDS: NEPHROVITE, (FOLIC ACID/VITAMIN B COMP W-C 1 TAB) PO SCH (10:06)
[2022-10-13] MEDS: DILTIAZEM HCL 180 MG CAP.SR.24H PO SCH (10:07)
[2022-10-13] MEDS: APIXABAN 2.5 MG TABLET PO SCH ×2 (10:08→21:13)
[2022-10-13] MEDS: CINACALCET HCL 30 MG TABLET PO SCH (10:08)
[2022-10-13] MEDS: METOPROLOL TARTRATE 50 MG TABLET PO SCH ×2 (10:09→21:12)
[2022-10-13] MEDS: hydrALAZINE HCL 10 MG TABLET PO SCH ×3 (10:10→21:29)
[2022-10-13] MEDS: DOCUSATE SODIUM 100 MG CAPSULE PO SCH ×2 (10:10→21:11)
[2022-10-13] MEDS: AMIODARONE HCL 200 MG TABLET PO SCH (10:11)
[2022-10-13] MEDS: PIPERACILLIN/TAZOBACTAM 2.25 GM/ D5W 50 ML IV SCH ×4 (10:15→21:09)
[2022-10-13] MEDS: FUROSEMIDE 80 MG TABLET PO SCH ×2 (11:42→21:12)
[2022-10-13] MEDS: VENLAFAXINE HCL 50 MG TABLET PO SCH ×2 (11:42→21:34)
[2022-10-13 12:00] VITALS: BP_SYST 138
[2022-10-13] MEDS: IPRATROPIUM BROM 0.5 MG/2.5 ML VIAL.NEB (ATROVENT) INH PRN (12:30)
[2022-10-13 13:13] LABS: LYMPHOCYTES % (MANUAL) 19 % (20-46); MONOCYTES % (MANUAL) 13 % (0-11)
[2022-10-13 13:14] LABS: BASOPHILS % (MANUAL) 0 % (0-2); EOSINOPHILS % (MANUAL) 5 % (0-7)
[2022-10-13 16:01] VITALS: BP_SYST 123
--- NOTE | 2022-10-13 16:15 | NUR ---
Spoke to May at [facility], -patient's O2 will be delivered to the hospital
[2022-10-13] MEDS: LATANOPROST 2.5 ML DROPS (XALATAN) OP SCH (18:00)
[2022-10-13] MEDS: ATORVASTATIN 20 MG TABLET PO SCH (18:39)
[2022-10-13] MEDS: traZODone HCL 50 MG TABLET (DESYREL) PO SCH (18:40)
--- NOTE | 2022-10-13 20:29 | NUR ---
[facility] CALLED [facility] TO FOLLOW UP ON O2 PER NOTE IT WILL BE DELIVERED TONIGHT AT BEDSIDE .. AMIRAH CALLED ME AND GOT [facility] OF [facility] AND THEY WILL DELIVERY IT BEFORE 10PM .. TRIED TO [facility] [facility] TO NOTIFY AND NO ANSWER WHO WILL BE THE ONE PICKING HER UP
--- NOTE | 2022-10-13 21:43 | NUR ---
llamas / family called family"friend" and they are unable to set up transport tonight they will be to try again tommorow . spoke will daron at [facility] [phone] and she said that no need for another auth she is still ok due to delay of dme equipment.
[2022-10-14 00:36] VITALS: BP_SYST 126
[2022-10-14] MEDS: LEVOTHYROXINE SODIUM 0.1 MG TABLET PO SCH (07:00)
--- NOTE | 2022-10-14 07:57 | NUR ---
RN NRSG COAL UNLOADER, MS RAMIREZ ASKED ME TO CALL HD ORDER TO MAJOR CONTROL ROOM SUPERVISOR.
--- NOTE | 2022-10-14 08:00 | NUR ---
RN NURSING TD RAMIREZ ASKED ME TO CALL HD ORDER TO BIOMEDICAL TECHNICIAN
[2022-10-14 08:38] LABS: EOSINOPHILS # (AUTO) 0.3 K/uL (0.0-0.4); HEMATOCRIT 25.8 % (36-48); HEMOGLOBIN 8.3 g/dL (12.0-16.0); LYMPHOCYTES # (AUTO) 0.9 K/uL (1.0-5.5); LYMPHOCYTES % (AUTO) 20.6 % (20.5-51.5); MEAN CORPUSCULAR HEMOGLOBIN 31 pg (27-31); MEAN CORPUSCULAR HGB CONC 32 % (32-36); MEAN CORPUSCULAR VOLUME 96 fL (79.0-98.0); MONOCYTES # (AUTO) 0.6 K/uL (0.0-1.0); MONOCYTES % (AUTO) 12.5 % (1.7-9.3); PLATELET COUNT (AUTO) 161 K/uL (130-430); RED CELL DISTRIBUTION WIDTH 14.4 % (9.0-15.0); WHITE BLOOD COUNT (AUTO) 4.6 K/uL (4.8-10.8)
[2022-10-14] MEDS: METOPROLOL TARTRATE 50 MG TABLET PO SCH ×2 (09:00→21:21)
[2022-10-14] MEDS: hydrALAZINE HCL 10 MG TABLET PO SCH ×3 (09:00→21:20)
[2022-10-14 09:10] LABS: BASOPHILS % (AUTO) 0.4 % (0.0-2.0); NEUTROPHILS # (AUTO) 2.8 K/uL (1.8-7.7); NEUTROPHILS % (AUTO) 60.5 % (40.0-70.0)
[2022-10-14 09:21] LABS: ANION GAP 8 (5-15); CALCIUM 8.6 mg/dL (8.4-11.0); CHLORIDE 96 mmol/L (98-107); CREATININE 4.66 mg/dL (0.55-1.30); GLUCOSE 106 mg/dL (70-99); UREA NITROGEN, BLOOD 33 mg/dL (8-21)
--- NOTE | 2022-10-14 09:39 | NUR ---
CALLED [facility] TO F/U DELIVERY OF O2. SPOKE TO AKOSUA AND ASKED ME TO CALL [facility] ([phone]), FOR O2 DELIVERY.
[2022-10-14] MEDS: PIPERACILLIN/TAZOBACTAM 2.25 GM/ D5W 50 ML IV SCH ×4 (09:47→21:19)
[2022-10-14] MEDS: DOCUSATE SODIUM 100 MG CAPSULE PO SCH ×2 (09:47→21:20)
[2022-10-14] MEDS: SEVELAMER CARBONATE 800 MG TABLET PO SCH ×3 (09:48→19:16)
[2022-10-14] MEDS: CINACALCET HCL 30 MG TABLET PO SCH (09:48)
[2022-10-14] MEDS: NEPHROVITE, (FOLIC ACID/VITAMIN B COMP W-C 1 TAB) PO SCH (09:48)
[2022-10-14] MEDS: APIXABAN 2.5 MG TABLET PO SCH ×2 (09:48→21:24)
[2022-10-14] MEDS: AMIODARONE HCL 200 MG TABLET PO SCH (09:49)
[2022-10-14] MEDS: DILTIAZEM HCL 180 MG CAP.SR.24H PO SCH (09:50)
[2022-10-14] MEDS: FUROSEMIDE 80 MG TABLET PO SCH ×2 (09:50→21:21)
[2022-10-14] MEDS: VENLAFAXINE HCL 50 MG TABLET PO SCH ×2 (09:57→21:22)
[2022-10-14 11:19] VITALS: BP_SYST 125
[2022-10-14] MEDS: ONDANSETRON HCL 4 MG/2 ML VIAL IVP PRN (15:04)
[2022-10-14] MEDS: MORPHINE 2 MG/ML INJ. SYRINGE IVP PRN (15:20)
[2022-10-14] MEDS: LATANOPROST 2.5 ML DROPS (XALATAN) OP SCH (18:00)
[2022-10-14] MEDS: ATORVASTATIN 20 MG TABLET PO SCH (19:16)
[2022-10-14] MEDS: traZODone HCL 50 MG TABLET (DESYREL) PO SCH (19:16)
[2022-10-14 20:00] VITALS: BP_SYST 122
[2022-10-15 00:30] VITALS: BP_SYST 120
[2022-10-15] MEDS: LEVOTHYROXINE SODIUM 0.1 MG TABLET PO SCH (06:21)
[2022-10-15 06:30] VITALS: BP_SYST 120
[2022-10-15] MEDS: SEVELAMER CARBONATE 800 MG TABLET PO SCH ×3 (08:00→18:12)
[2022-10-15] MEDS: METOPROLOL TARTRATE 50 MG TABLET PO SCH ×2 (09:00→21:00)
[2022-10-15] MEDS: AMIODARONE HCL 200 MG TABLET PO SCH (10:16)
[2022-10-15] MEDS: DOCUSATE SODIUM 100 MG CAPSULE PO SCH ×2 (10:16→23:11)
[2022-10-15] MEDS: APIXABAN 2.5 MG TABLET PO SCH ×2 (10:17→23:47)
[2022-10-15] MEDS: VENLAFAXINE HCL 50 MG TABLET PO SCH ×2 (10:21→23:15)
[2022-10-15] MEDS: hydrALAZINE HCL 10 MG TABLET PO SCH ×3 (10:22→21:00)
[2022-10-15] MEDS: DILTIAZEM HCL 180 MG CAP.SR.24H PO SCH (10:22)
[2022-10-15] MEDS: CINACALCET HCL 30 MG TABLET PO SCH (10:22)
[2022-10-15] MEDS: PIPERACILLIN/TAZOBACTAM 2.25 GM/ D5W 50 ML IV SCH ×4 (10:22→23:10)
[2022-10-15] MEDS: FUROSEMIDE 80 MG TABLET PO SCH ×2 (10:22→21:00)
[2022-10-15] MEDS: NEPHROVITE, (FOLIC ACID/VITAMIN B COMP W-C 1 TAB) PO SCH (10:22)
[2022-10-15 16:00] VITALS: BP_SYST 131
[2022-10-15] MEDS: traZODone HCL 50 MG TABLET (DESYREL) PO SCH (17:15)
[2022-10-15] MEDS: LATANOPROST 2.5 ML DROPS (XALATAN) OP SCH (17:15)
[2022-10-15] MEDS: ATORVASTATIN 20 MG TABLET PO SCH (17:16)
[2022-10-15 21:00] VITALS: BP_SYST 115
--- NOTE | 2022-10-15 21:24 | NUR ---
[facility] [phone] called and spoke with Amy at [facility] and she said that she will set up again for them to deliver concentrator to home and portable to hospital . plan is for it to be delivered tomorrow 10-16-22
--- NOTE | 2022-10-16 | NUR ---
HEMODIALYSIS completed @ the bedside , left arm AV site no bleeding noted continue to monitor .
[2022-10-16 02:00] VITALS: BP_SYST 125
--- NOTE | 2022-10-16 02:37 | NUR ---
AMBIEN 5 MG po given for sleep aide comfort measures implemented / .
--- NOTE | 2022-10-16 02:38 | NUR ---
TYLENOL TABLET po given for general pain & position change helpful .
[2022-10-16] MEDS: LEVOTHYROXINE SODIUM 0.1 MG TABLET PO SCH (07:01)
[2022-10-16 08:00] VITALS: BP_SYST 140
[2022-10-16] MEDS: SEVELAMER CARBONATE 800 MG TABLET PO SCH ×3 (08:53→17:34)
[2022-10-16] MEDS: PIPERACILLIN/TAZOBACTAM 2.25 GM/ D5W 50 ML IV SCH ×2 (08:53)
[2022-10-16] MEDS: AMIODARONE HCL 200 MG TABLET PO SCH (08:54)
[2022-10-16] MEDS: CINACALCET HCL 30 MG TABLET PO SCH (08:54)
[2022-10-16] MEDS: VENLAFAXINE HCL 50 MG TABLET PO SCH (08:54)
[2022-10-16] MEDS: DOCUSATE SODIUM 100 MG CAPSULE PO SCH (08:54)
[2022-10-16] MEDS: hydrALAZINE HCL 10 MG TABLET PO SCH ×2 (08:55→15:00)
[2022-10-16] MEDS: NEPHROVITE, (FOLIC ACID/VITAMIN B COMP W-C 1 TAB) PO SCH (08:55)
[2022-10-16] MEDS: FUROSEMIDE 80 MG TABLET PO SCH (08:55)
[2022-10-16] MEDS: DILTIAZEM HCL 180 MG CAP.SR.24H PO SCH (08:56)
[2022-10-16] MEDS: METOPROLOL TARTRATE 50 MG TABLET PO SCH (08:56)
[2022-10-16] MEDS: APIXABAN 2.5 MG TABLET PO SCH (09:09)
--- NOTE | 2022-10-16 14:57 | NUR ---
Is Technician FORMING OPERATOR spoke to Pebbles Rosas who stated pt. was seen by RT who stated pt. is at 98%. As per Dr. Reis , pt. can be discharged and to follow up with [facility] who never set up home O2. FORMING OPERATOR recievd call from [facility] who asked for assistance, make transportation arrangements for pt who will go back to her [facility] after HD . FORMING OPERATOR called [facility] Rosas who stated HD will be compelte after 5pm. , make transporation plans around 5:30. FORMING OPERATOR called [facility] no answer. FORMING OPERATOR called Jesus Alberto avendaño, [phone] who id self as [employer] world renowned chef and restaurant owner and stated due to liability, he does not provide transportation, gave phone number of transporter for HD, Álvaro Mar, . FORMING OPERATOR called Álvaro who will be at [facility] at 5:30 for pt. pickup. FORMING OPERATOR shared info with Rn. Rosas.
[2022-10-16 17:11] VITALS: BP_SYST 118
[2022-10-16] MEDS: ATORVASTATIN 20 MG TABLET PO SCH (17:34)
[2022-10-16] MEDS: LATANOPROST 2.5 ML DROPS (XALATAN) OP SCH (17:34)
[2022-10-16] MEDS: traZODone HCL 50 MG TABLET (DESYREL) PO SCH (17:34)
== END 2022-10-16 17:05 | disposition home health service (06) | DRG 193 ==
LOC: SED 14:58 → STU 20:53
PROVIDERS: ADMIT General Practice; ATTEND General Practice
PROC: 5A1D70Z Performance of Urinary Filtration, Intermittent, Less than 6 Hours Per Day (ICD-10-PCS; principal; 2022-10-10)
PROC: 5A1D70Z Performance of Urinary Filtration, Intermittent, Less than 6 Hours Per Day (ICD-10-PCS; 2022-10-12)
PROC: 5A1D70Z Performance of Urinary Filtration, Intermittent, Less than 6 Hours Per Day (ICD-10-PCS; 2022-10-14)
PROC: 5A1D70Z Performance of Urinary Filtration, Intermittent, Less than 6 Hours Per Day (ICD-10-PCS; 2022-10-15)
PROC: 5A1D70Z Performance of Urinary Filtration, Intermittent, Less than 6 Hours Per Day (ICD-10-PCS; 2022-10-16)
DX: J18.9 Pneumonia, unspecified organism (principal); I50.43 Acute on chronic combined systolic (congestive) and diastolic (congestive) heart failure; N17.0 Acute kidney failure with tubular necrosis; J96.01 Acute respiratory failure with hypoxia; N18.6 End stage renal disease; I13.2 Hypertensive heart and chronic kidney disease with heart failure and with stage 5 chronic kidney disease, or end stage renal disease; E44.1 Mild protein-calorie malnutrition; E21.3 Hyperparathyroidism, unspecified; E11.22 Type 2 diabetes mellitus with diabetic chronic kidney disease; I48.91 Unspecified atrial fibrillation; E03.9 Hypothyroidism, unspecified; Z20.822 Contact with and (suspected) exposure to COVID-19; E78.00 Pure hypercholesterolemia, unspecified; D63.8 Anemia in other chronic diseases classified elsewhere; Z91.030 Bee allergy status; Z79.899 Other long term (current) drug therapy; Z95.0 Presence of cardiac pacemaker; Z91.15 Patient's noncompliance with renal dialysis; Z90.49 Acquired absence of other specified parts of digestive tract; Z91.14 Patient's other noncompliance with medication regimen; Z68.30 Body mass index [BMI] 30.0-30.9, adult
CPT/HCPCS: 36415; 71045; 80048; 80053; 83036; 83735; 83880; 84484; 85007; 85025; 85027; 87040; 90935; 90937; 93005; 94640; 94760; 96374; 99285; G0378; J1885; J2060; J2270; J2405; J2543; J7030; J7050; J7060

== ENCOUNTER 2023-04-23 08:50 | Emergency (ER) | payer MEDICARE ==
[~2023-04-23] VITALS: Ht 165.1 cm; Wt 72.6 kg
[~2023-04-23 08:50] MED LIST changes: -ACET-73 PO; -BISA10SU61 RC; -CHOL100034 PO; +CHOL100038 PO; -CHOL100062 PO; -COLC0.6T67 PO; +DOCU-156 PO; -FLEETMO RC; +FOLI0.8T42 PO; +HYDR-4037 PO; -HYDR-4038 PO; -HYDR-4272 PO; +IPRA0.2S53 IH; -LACT10SO6 PO; -LEVO250T73 PO; +LIDOINT TP; -MULT-1089 PO; -OXYC-128 PO; -PATANOL OP; -POTA10TA PO; -PRED10TA PO; -PRO10 PO; -PSYL1PAC8 PO; +REN800 PO; +SEN30 PO; +SULF1TAB47 PO; +TRAZ-250 PO; +VENL25TA4 PO
[2023-04-23 08:58] VITALS: BP_SYST 134; PULSE 76; RESP 20; TEMP 98.6; O2SAT 96
[2023-04-23] MEDS ORDERED: METOCLOPRAMIDE HCL 10 MG/2 ML VIAL IVP ONE (09:15)
[2023-04-23] MEDS ORDERED: MECLIZINE HCL 25 MG TABLET (ANITVERT) PO ONE (09:15)
[2023-04-23 09:55] LABS: BASOPHILS # (AUTO) 0.1 K/uL (0.0-0.2); BASOPHILS % (AUTO) 0.8 % (0.0-2.0); EOSINOPHILS # (AUTO) 0.2 K/uL (0.0-0.4); EOSINOPHILS % (AUTO) 2.2 % (0.0-4.0); HEMATOCRIT 32.1 % (36-48); HEMOGLOBIN 10.2 g/dL (12.0-16.0); LYMPHOCYTES % (AUTO) 11.6 % (20.5-51.5); MEAN CORPUSCULAR HEMOGLOBIN 30 pg (27-31); MEAN CORPUSCULAR HGB CONC 32 % (32-36); MEAN CORPUSCULAR VOLUME 95 fL (79.0-98.0); MONOCYTES # (AUTO) 0.7 K/uL (0.0-1.0); MONOCYTES % (AUTO) 8.1 % (1.7-9.3); NEUTROPHILS # (AUTO) 6.6 K/uL (1.8-7.7); NEUTROPHILS % (AUTO) 77.3 % (40.0-70.0); PLATELET COUNT (AUTO) 218 K/uL (130-430); RED BLOOD CELL COUNT(AUTO) 3.39 MIL/uL (4.2-6.2); RED CELL DISTRIBUTION WIDTH 15.2 % (9.0-15.0); WHITE BLOOD COUNT (AUTO) 8.5 K/uL (4.8-10.8)
[2023-04-23 10:02] LABS: ANION GAP 13 (5-15); CHLORIDE 94 mmol/L (98-107); CREATININE 6.24 mg/dL (0.55-1.30); GLUCOSE 153 mg/dL (74-106); UREA NITROGEN, BLOOD 47 mg/dL (8-21)
[2023-04-23 10:09] LABS: ALANINE AMINOTRANSFERASE 10 U/L (12-78); ALBUMIN 2.8 g/dL (3.4-4.8); ASPARTATE AMINOTRANSFERASE 12 U/L (10-37); INR 1.1 (0.8-1.2); PROTHROMBIN TIME 11.4 SECS (9.5-12.5); TOTAL BILIRUBIN 0.4 mg/dL (0.0-1.0)
[2023-04-23] MEDS ORDERED: NITR-85 PO (12:54)
[2023-04-23 13:02] VITALS: BP_SYST 133; PULSE 69; RESP 20; TEMP 98.6; O2SAT 96
== END 2023-04-23 13:03 | disposition home or self-care (01) ==
LOC: SED 08:50
DX: I48.91 Unspecified atrial fibrillation (principal); R07.9 Chest pain, unspecified; R06.02 Shortness of breath; I11.0 Hypertensive heart disease with heart failure; I50.9 Heart failure, unspecified; E11.9 Type 2 diabetes mellitus without complications; Z91.030 Bee allergy status; Z79.899 Other long term (current) drug therapy
CPT/HCPCS: 99285; 96374; 70450; 71045; 80053; 83880; 85025; 85610; 85730; 84484; 36415; 93005; 76376; J8597; J2765

== ENCOUNTER 2023-05-04 14:28 | Inpatient (IN) | payer MEDICARE ==
[~2023-05-04] VITALS: Ht 160 cm; Wt 71.3 kg
[~2023-05-04 14:28] MED LIST changes: +NITR-85 PO
[2023-05-04 14:53] VITALS: BP_SYST 95; PULSE 103; RESP 17; TEMP 98.3; O2SAT 98
[2023-05-04 15:16] LABS: BASOPHILS # (AUTO) 0.1 K/uL (0.0-0.2); BASOPHILS % (AUTO) 0.8 % (0.0-2.0); EOSINOPHILS # (AUTO) 0.2 K/uL (0.0-0.4); EOSINOPHILS % (AUTO) 3.4 % (0.0-4.0); HEMATOCRIT 29.5 % (36-48); HEMOGLOBIN 9.4 g/dL (12.0-16.0); LYMPHOCYTES # (AUTO) 0.7 K/uL (1.0-5.5); LYMPHOCYTES % (AUTO) 10.5 % (20.5-51.5); MEAN CORPUSCULAR HEMOGLOBIN 30 pg (27-31); MEAN CORPUSCULAR HGB CONC 32 % (32-36); MEAN CORPUSCULAR VOLUME 95 fL (79.0-98.0); MONOCYTES # (AUTO) 0.6 K/uL (0.0-1.0); MONOCYTES % (AUTO) 8.2 % (1.7-9.3); NEUTROPHILS # (AUTO) 5.5 K/uL (1.8-7.7); NEUTROPHILS % (AUTO) 77.1 % (40.0-70.0); PLATELET COUNT (AUTO) 291 K/uL (130-430); RED BLOOD CELL COUNT(AUTO) 3.11 MIL/uL (4.2-6.2); RED CELL DISTRIBUTION WIDTH 14.9 % (9.0-15.0); WHITE BLOOD COUNT (AUTO) 7.1 K/uL (4.8-10.8)
[2023-05-04 15:27] LABS: ANION GAP 4 (5-15); CALCIUM 8.5 mg/dL (8.4-11.0); CARBON DIOXIDE 34 mmol/L (23-29); CHLORIDE 97 mmol/L (98-107); CREATININE 2.39 mg/dL (0.55-1.30); GLUCOSE 122 mg/dL (74-106); POTASSIUM 3.3 mmol/L (3.5-5.1); SODIUM SERUM 135 mmol/L (136-145); UREA NITROGEN, BLOOD 13 mg/dL (8-21)
[2023-05-04 15:34] LABS: ALANINE AMINOTRANSFERASE 11 U/L (12-78); ALBUMIN 2.6 g/dL (3.4-4.8); ASPARTATE AMINOTRANSFERASE 18 U/L (10-37); TOTAL BILIRUBIN 0.3 mg/dL (0.0-1.0); TOTAL PROTEIN, SERUM 6.8 g/dL (6.4-8.3)
[2023-05-04 15:41] LABS: PHOSPHORUS 2.3 mg/dL (2.7-4.5)
[2023-05-04] MEDS ORDERED: MORPHINE 2 MG/ML INJ. SYRINGE IVP ONE (15:45)
[2023-05-04] MEDS ORDERED: NACL 0.9% 1,000 ML IV ONE (15:45)
[2023-05-04] MEDS ORDERED: ONDANSETRON HCL 4 MG/2 ML VIAL IVP PRN (18:15)
[2023-05-04] MEDS ORDERED: LORazepam 2 MG/ML VIAL IVP PRN (18:15)
[2023-05-04] MEDS ORDERED: ACETAMINOPHEN 325 MG TABLET PO PRN (18:15)
[2023-05-04] MEDS ORDERED: HYDROcodone/ACETAMIN 5-325 MG TAB (NORCO/ VICODIN) PO PRN (18:15)
[2023-05-04] MEDS ORDERED: ONDANSETRON 4 MG ODT TAB PO PRN (19:15)
[2023-05-04] MEDS ORDERED: FUROSEMIDE 80 MG TABLET PO SCH (21:00)
[2023-05-04] MEDS: VENLAFAXINE HCL 50 MG TABLET PO SCH (21:00)
[2023-05-04] MEDS ORDERED: POTASSIUM CHLORIDE 20 MEQ TAB.PRT.SR PO ONE (21:15)
[2023-05-04] MEDS: METOPROLOL TARTRATE 50 MG TABLET PO SCH (21:35)
[2023-05-04] MEDS: hydrALAZINE HCL 10 MG TABLET PO SCH (21:36)
[2023-05-04] MEDS: DOCUSATE SODIUM 100 MG CAPSULE PO SCH (21:37)
[2023-05-04] MEDS: APIXABAN 2.5 MG TABLET PO SCH (21:37)
[2023-05-04] MEDS: HYDROcodone/ACETAMIN 10-325 MG TAB PO PRN (21:40)
[2023-05-04] MEDS: NORMAL SALINE 5 ML DISP.SYRIN IVF SCH (21:47)
[2023-05-04 21:51] VITALS: BP_SYST 127; PULSE 72; RESP 18; TEMP 97.2; O2SAT 99
[2023-05-05] VITALS (7 sets, daily range): BP systolic 115–138; PULSE 66–85; RESP 16–18; TEMP 96.9–98.6; O2SAT 92–99
[2023-05-05 05:19] LABS: BASOPHILS % (AUTO) 0.7 % (0.0-2.0); EOSINOPHILS # (AUTO) 0.3 K/uL (0.0-0.4); EOSINOPHILS % (AUTO) 4.3 % (0.0-4.0); HEMATOCRIT 27.7 % (36-48); HEMOGLOBIN 8.9 g/dL (12.0-16.0); LYMPHOCYTES # (AUTO) 1.1 K/uL (1.0-5.5); LYMPHOCYTES % (AUTO) 16.9 % (20.5-51.5); MEAN CORPUSCULAR HEMOGLOBIN 31 pg (27-31); MEAN CORPUSCULAR HGB CONC 32 % (32-36); MEAN CORPUSCULAR VOLUME 96 fL (79.0-98.0); MONOCYTES # (AUTO) 0.6 K/uL (0.0-1.0); MONOCYTES % (AUTO) 9.5 % (1.7-9.3); NEUTROPHILS # (AUTO) 4.5 K/uL (1.8-7.7); NEUTROPHILS % (AUTO) 68.6 % (40.0-70.0); PLATELET COUNT (AUTO) 261 K/uL (130-430); RED CELL DISTRIBUTION WIDTH 15.1 % (9.0-15.0); WHITE BLOOD COUNT (AUTO) 6.6 K/uL (4.8-10.8)
[2023-05-05 05:40] LABS: ANION GAP 4 (5-15); CALCIUM 8.7 mg/dL (8.4-11.0); CARBON DIOXIDE 31 mmol/L (23-29); CHLORIDE 98 mmol/L (98-107); CREATININE 3.23 mg/dL (0.55-1.30); GLUCOSE 67 mg/dL (74-106); PHOSPHORUS 3.6 mg/dL (2.7-4.5); POTASSIUM 5.7 mmol/L (3.5-5.1); SODIUM SERUM 133 mmol/L (136-145); UREA NITROGEN, BLOOD 18 mg/dL (8-21)
[2023-05-05] MEDS: LEVOTHYROXINE SODIUM 0.1 MG TABLET PO SCH (06:22)
[2023-05-05] MEDS: NORMAL SALINE 5 ML DISP.SYRIN IVF SCH ×3 (06:23→21:27)
[2023-05-05] MEDS: hydrALAZINE HCL 10 MG TABLET PO SCH ×3 (09:43→20:18)
[2023-05-05] MEDS: FUROSEMIDE 40 MG/4 ML VIAL IVP SCH ×2 (09:43→14:49)
[2023-05-05] MEDS: SEVELAMER CARBONATE 800 MG TABLET PO SCH ×3 (09:44→17:54)
[2023-05-05] MEDS: AMIODARONE HCL 200 MG TABLET PO SCH (09:44)
[2023-05-05] MEDS: DOCUSATE SODIUM 100 MG CAPSULE PO SCH ×2 (09:45→20:18)
[2023-05-05] MEDS: DILTIAZEM HCL 180 MG CAP.SR.24H PO SCH (09:45)
[2023-05-05] MEDS: NEPHROVITE, (FOLIC ACID/VITAMIN B COMP W-C 1 TAB) PO SCH (09:46)
[2023-05-05] MEDS: POLYETHYLENE GLYCOL 3350, 17 GM/ POWD.PACK PO SCH (09:46)
[2023-05-05] MEDS: METOPROLOL TARTRATE 50 MG TABLET PO SCH ×2 (09:46→20:20)
[2023-05-05] MEDS: CINACALCET HCL 30 MG TABLET PO SCH (09:46)
[2023-05-05] MEDS: CHOLECALCIFEROL (VITAMIN D3) 2,000 UNIT TABLET PO SCH (09:47)
[2023-05-05] MEDS: VENLAFAXINE HCL 50 MG TABLET PO SCH ×2 (09:47→20:25)
[2023-05-05] MEDS: APIXABAN 2.5 MG TABLET PO SCH ×2 (09:48→20:21)
[2023-05-05] MEDS: traZODone HCL 50 MG TABLET (DESYREL) PO SCH (17:54)
[2023-05-05] MEDS: LATANOPROST 2.5 ML DROPS (XALATAN) OP SCH (17:54)
[2023-05-05] MEDS: ATORVASTATIN 20 MG TABLET PO SCH (17:54)
[2023-05-05] MEDS: HYDROcodone/ACETAMIN 10-325 MG TAB PO PRN (20:19)
[2023-05-06] VITALS (10 sets, daily range): BP systolic 116–134; PULSE 68–75; RESP 18–26; TEMP 97.2–98.4; O2SAT 89–100
[2023-05-06] MEDS: ALBUTEROL SULFATE 0.083% 2.5 MG/3 ML VIAL.NEB INH PRN ×2 (03:50→20:22)
[2023-05-06] MEDS: IPRATROPIUM BROM 0.5 MG/2.5 ML VIAL.NEB (ATROVENT) INH PRN ×2 (03:50→20:22)
[2023-05-06 05:37] LABS: BASOPHILS # (AUTO) 0.1 K/uL (0.0-0.2); BASOPHILS % (AUTO) 1.1 % (0.0-2.0); EOSINOPHILS # (AUTO) 0.3 K/uL (0.0-0.4); EOSINOPHILS % (AUTO) 4.1 % (0.0-4.0); HEMATOCRIT 26.5 % (36-48); HEMOGLOBIN 8.6 g/dL (12.0-16.0); LYMPHOCYTES # (AUTO) 1.5 K/uL (1.0-5.5); LYMPHOCYTES % (AUTO) 22.4 % (20.5-51.5); MEAN CORPUSCULAR HEMOGLOBIN 31 pg (27-31); MEAN CORPUSCULAR HGB CONC 32 % (32-36); MEAN CORPUSCULAR VOLUME 95 fL (79.0-98.0); MONOCYTES # (AUTO) 0.6 K/uL (0.0-1.0); MONOCYTES % (AUTO) 9.8 % (1.7-9.3); NEUTROPHILS # (AUTO) 4.1 K/uL (1.8-7.7); NEUTROPHILS % (AUTO) 62.6 % (40.0-70.0); PLATELET COUNT (AUTO) 240 K/uL (130-430); RED BLOOD CELL COUNT(AUTO) 2.79 MIL/uL (4.2-6.2); RED CELL DISTRIBUTION WIDTH 15.1 % (9.0-15.0); WHITE BLOOD COUNT (AUTO) 6.6 K/uL (4.8-10.8)
[2023-05-06] MEDS: NORMAL SALINE 5 ML DISP.SYRIN IVF SCH ×3 (05:39→20:36)
[2023-05-06] MEDS: LEVOTHYROXINE SODIUM 0.1 MG TABLET PO SCH (06:12)
[2023-05-06 06:53] LABS: ANION GAP 10 (5-15); CALCIUM 9.4 mg/dL (8.4-11.0); CARBON DIOXIDE 26 mmol/L (23-29); CHLORIDE 96 mmol/L (98-107); CREATININE 5.03 mg/dL (0.55-1.30); GLUCOSE 86 mg/dL (74-106); PHOSPHORUS 4.8 mg/dL (2.7-4.5); POTASSIUM 4.8 mmol/L (3.5-5.1); SODIUM SERUM 132 mmol/L (136-145); UREA NITROGEN, BLOOD 36 mg/dL (8-21)
[2023-05-06] MEDS: NEPHROVITE, (FOLIC ACID/VITAMIN B COMP W-C 1 TAB) PO SCH (09:00)
[2023-05-06] MEDS: POLYETHYLENE GLYCOL 3350, 17 GM/ POWD.PACK PO SCH (09:00)
[2023-05-06] MEDS: METOPROLOL TARTRATE 50 MG TABLET PO SCH ×3 (09:00→20:11)
[2023-05-06] MEDS: DILTIAZEM HCL 180 MG CAP.SR.24H PO SCH ×2 (09:00→09:02)
[2023-05-06] MEDS: hydrALAZINE HCL 10 MG TABLET PO SCH ×4 (09:00→20:11)
[2023-05-06] MEDS: CHOLECALCIFEROL (VITAMIN D3) 2,000 UNIT TABLET PO SCH (09:01)
[2023-05-06] MEDS: CINACALCET HCL 30 MG TABLET PO SCH (09:01)
[2023-05-06] MEDS: DOCUSATE SODIUM 100 MG CAPSULE PO SCH ×2 (09:01→20:11)
[2023-05-06] MEDS: AMIODARONE HCL 200 MG TABLET PO SCH (09:01)
[2023-05-06] MEDS: SEVELAMER CARBONATE 800 MG TABLET PO SCH ×3 (09:01→17:17)
[2023-05-06] MEDS: FUROSEMIDE 40 MG/4 ML VIAL IVP SCH ×2 (09:04→14:00)
[2023-05-06] MEDS: APIXABAN 2.5 MG TABLET PO SCH ×2 (09:04→20:12)
[2023-05-06] MEDS: VENLAFAXINE HCL 50 MG TABLET PO SCH ×2 (09:06→20:13)
[2023-05-06] MEDS ORDERED: HEPARIN SODIUM,PORCINE 5,000 UNITS/ML VIAL MC ONE (12:45)
[2023-05-06] MEDS: HEPARIN SODIUM,PORCINE 5,000 UNITS/ML VIAL MC ONE ×2 (14:00→14:09)
[2023-05-06] MEDS: ATORVASTATIN 20 MG TABLET PO SCH (17:17)
[2023-05-06] MEDS: LATANOPROST 2.5 ML DROPS (XALATAN) OP SCH (17:18)
[2023-05-06] MEDS: traZODone HCL 50 MG TABLET (DESYREL) PO SCH (17:18)
[2023-05-07] VITALS (8 sets, daily range): BP systolic 123–135; PULSE 73–85; RESP 16–18; TEMP 96.5–97; O2SAT 95–99
[2023-05-07] MEDS: ALBUTEROL SULFATE 0.083% 2.5 MG/3 ML VIAL.NEB INH PRN (00:27)
[2023-05-07] MEDS: IPRATROPIUM BROM 0.5 MG/2.5 ML VIAL.NEB (ATROVENT) INH PRN (00:27)
[2023-05-07] MEDS ORDERED: MAG-AL HYDROX/SIMETH 30 ML UDC PO PRN (03:45)
[2023-05-07 04:59] LABS: EOSINOPHILS # (AUTO) 0.2 K/uL (0.0-0.4); EOSINOPHILS % (AUTO) 4.4 % (0.0-4.0); HEMATOCRIT 24.5 % (36-48); HEMOGLOBIN 8.3 g/dL (12.0-16.0); LYMPHOCYTES # (AUTO) 0.8 K/uL (1.0-5.5); LYMPHOCYTES % (AUTO) 18.3 % (20.5-51.5); MEAN CORPUSCULAR HEMOGLOBIN 32 pg (27-31); MEAN CORPUSCULAR HGB CONC 34 % (32-36); MEAN CORPUSCULAR VOLUME 95 fL (79.0-98.0); MONOCYTES # (AUTO) 0.6 K/uL (0.0-1.0); NEUTROPHILS % (AUTO) 64.3 % (40.0-70.0); PLATELET COUNT (AUTO) 211 K/uL (130-430); RED BLOOD CELL COUNT(AUTO) 2.58 MIL/uL (4.2-6.2); RED CELL DISTRIBUTION WIDTH 15.3 % (9.0-15.0); WHITE BLOOD COUNT (AUTO) 4.6 K/uL (4.8-10.8)
[2023-05-07] MEDS: NORMAL SALINE 5 ML DISP.SYRIN IVF SCH ×3 (05:05→21:16)
[2023-05-07 05:48] LABS: ALANINE AMINOTRANSFERASE 5 U/L (12-78); ALBUMIN 2.2 g/dL (3.4-4.8); ANION GAP 0 (5-15); ASPARTATE AMINOTRANSFERASE 12 U/L (10-37); CARBON DIOXIDE 37 mmol/L (23-29); CHLORIDE 102 mmol/L (98-107); CREATININE 3.32 mg/dL (0.55-1.30); GLUCOSE 110 mg/dL (74-106); PHOSPHORUS 3.7 mg/dL (2.7-4.5); POTASSIUM 4.6 mmol/L (3.5-5.1); SODIUM SERUM 139 mmol/L (136-145); TOTAL BILIRUBIN 0.2 mg/dL (0.0-1.0); TOTAL PROTEIN, SERUM 5.9 g/dL (6.4-8.3); UREA NITROGEN, BLOOD 23 mg/dL (8-21)
[2023-05-07] MEDS: LEVOTHYROXINE SODIUM 0.1 MG TABLET PO SCH (06:00)
[2023-05-07] MEDS: NEPHROVITE, (FOLIC ACID/VITAMIN B COMP W-C 1 TAB) PO SCH (08:32)
[2023-05-07] MEDS: CHOLECALCIFEROL (VITAMIN D3) 2,000 UNIT TABLET PO SCH (08:32)
[2023-05-07] MEDS: DOCUSATE SODIUM 100 MG CAPSULE PO SCH ×2 (08:32→21:14)
[2023-05-07] MEDS: POLYETHYLENE GLYCOL 3350, 17 GM/ POWD.PACK PO SCH (08:32)
[2023-05-07] MEDS: SEVELAMER CARBONATE 800 MG TABLET PO SCH ×3 (08:32→18:22)
[2023-05-07] MEDS: CINACALCET HCL 30 MG TABLET PO SCH (08:32)
[2023-05-07] MEDS: AMIODARONE HCL 200 MG TABLET PO SCH (08:33)
[2023-05-07] MEDS: FUROSEMIDE 40 MG/4 ML VIAL IVP SCH ×2 (08:33→14:24)
[2023-05-07] MEDS: hydrALAZINE HCL 10 MG TABLET PO SCH ×3 (08:34→21:15)
[2023-05-07] MEDS: DILTIAZEM HCL 180 MG CAP.SR.24H PO SCH (08:34)
[2023-05-07] MEDS: METOPROLOL TARTRATE 50 MG TABLET PO SCH ×2 (08:35→21:15)
[2023-05-07] MEDS: VENLAFAXINE HCL 50 MG TABLET PO SCH ×2 (08:35→21:15)
[2023-05-07] MEDS: APIXABAN 2.5 MG TABLET PO SCH ×2 (08:37→21:15)
[2023-05-07] MEDS: ATORVASTATIN 20 MG TABLET PO SCH (18:22)
[2023-05-07] MEDS: traZODone HCL 50 MG TABLET (DESYREL) PO SCH (18:22)
[2023-05-07] MEDS: LATANOPROST 2.5 ML DROPS (XALATAN) OP SCH (18:22)
[2023-05-07] MEDS ORDERED: POLYETHYLENE GLYCOL 3350, 17 GM/ POWD.PACK PO ONE (22:00)
[2023-05-08] VITALS (7 sets, daily range): BP systolic 111–142; PULSE 68–83; RESP 16–19; TEMP 96.7–98.4; O2SAT 92–99
[2023-05-08 06:02] LABS: BASOPHILS # (AUTO) 0.1 K/uL (0.0-0.2); BASOPHILS % (AUTO) 0.9 % (0.0-2.0); EOSINOPHILS # (AUTO) 0.3 K/uL (0.0-0.4); EOSINOPHILS % (AUTO) 4.9 % (0.0-4.0); HEMATOCRIT 25.4 % (36-48); HEMOGLOBIN 8.2 g/dL (12.0-16.0); LYMPHOCYTES # (AUTO) 1.1 K/uL (1.0-5.5); LYMPHOCYTES % (AUTO) 17.7 % (20.5-51.5); MEAN CORPUSCULAR HEMOGLOBIN 31 pg (27-31); MEAN CORPUSCULAR HGB CONC 32 % (32-36); MEAN CORPUSCULAR VOLUME 96 fL (79.0-98.0); MONOCYTES # (AUTO) 0.6 K/uL (0.0-1.0); MONOCYTES % (AUTO) 10.4 % (1.7-9.3); NEUTROPHILS # (AUTO) 3.9 K/uL (1.8-7.7); NEUTROPHILS % (AUTO) 66.1 % (40.0-70.0); PLATELET COUNT (AUTO) 227 K/uL (130-430); RED BLOOD CELL COUNT(AUTO) 2.64 MIL/uL (4.2-6.2); RED CELL DISTRIBUTION WIDTH 15.1 % (9.0-15.0)
[2023-05-08 06:09] LABS: ANION GAP 4 (5-15); CALCIUM 9.7 mg/dL (8.4-11.0); CARBON DIOXIDE 33 mmol/L (23-29); CHLORIDE 97 mmol/L (98-107); CREATININE 4.33 mg/dL (0.55-1.30); GLUCOSE 101 mg/dL (74-106); PHOSPHORUS 3.6 mg/dL (2.7-4.5); SODIUM SERUM 134 mmol/L (136-145); UREA NITROGEN, BLOOD 39 mg/dL (8-21)
[2023-05-08] MEDS: NORMAL SALINE 5 ML DISP.SYRIN IVF SCH ×2 (06:12→14:54)
[2023-05-08] MEDS: LEVOTHYROXINE SODIUM 0.1 MG TABLET PO SCH (06:12)
[2023-05-08] MEDS ORDERED: FUROSEMIDE 20 MG TABLET PO SCH (09:00)
[2023-05-08] MEDS: VENLAFAXINE HCL 50 MG TABLET PO SCH (09:00)
[2023-05-08] MEDS: DILTIAZEM HCL 180 MG CAP.SR.24H PO SCH (09:00)
[2023-05-08] MEDS: APIXABAN 2.5 MG TABLET PO SCH (09:20)
[2023-05-08] MEDS: SEVELAMER CARBONATE 800 MG TABLET PO SCH ×2 (09:20→11:26)
[2023-05-08] MEDS: POLYETHYLENE GLYCOL 3350, 17 GM/ POWD.PACK PO SCH (09:20)
[2023-05-08] MEDS: CHOLECALCIFEROL (VITAMIN D3) 2,000 UNIT TABLET PO SCH (09:21)
[2023-05-08] MEDS: AMIODARONE HCL 200 MG TABLET PO SCH (09:21)
[2023-05-08] MEDS: CINACALCET HCL 30 MG TABLET PO SCH (09:22)
[2023-05-08] MEDS: hydrALAZINE HCL 10 MG TABLET PO SCH ×2 (09:22→14:55)
[2023-05-08] MEDS: NEPHROVITE, (FOLIC ACID/VITAMIN B COMP W-C 1 TAB) PO SCH (09:22)
[2023-05-08] MEDS: METOPROLOL TARTRATE 50 MG TABLET PO SCH (09:22)
[2023-05-08] MEDS: DOCUSATE SODIUM 100 MG CAPSULE PO SCH (09:22)
[2023-05-08] MEDS ORDERED: HEPARIN SODIUM,PORCINE 5,000 UNITS/ML VIAL MC ONE (10:15)
== END 2023-05-08 18:30 | disposition home or self-care (01) | DRG 291 ==
LOC: SED 14:28 → STU 18:50 → SMU 05-07 12:31
PROVIDERS: ADMIT Preventive Medicine Preventive Medicine/Occupational Environmental Medicine; ATTEND Preventive Medicine Preventive Medicine/Occupational Environmental Medicine
PROC: 5A1D70Z Performance of Urinary Filtration, Intermittent, Less than 6 Hours Per Day (ICD-10-PCS; principal; 2023-05-06)
PROC: 5A1D70Z Performance of Urinary Filtration, Intermittent, Less than 6 Hours Per Day (ICD-10-PCS; 2023-05-08)
DX: I13.2 Hypertensive heart and chronic kidney disease with heart failure and with stage 5 chronic kidney disease, or end stage renal disease (principal); E43 Unspecified severe protein-calorie malnutrition; N18.6 End stage renal disease; I50.33 Acute on chronic diastolic (congestive) heart failure; E87.1 Hypo-osmolality and hyponatremia; N17.9 Acute kidney failure, unspecified; E83.41 Hypermagnesemia; E83.39 Other disorders of phosphorus metabolism; E78.00 Pure hypercholesterolemia, unspecified; E11.22 Type 2 diabetes mellitus with diabetic chronic kidney disease; E87.6 Hypokalemia; E11.65 Type 2 diabetes mellitus with hyperglycemia; E88.09 Other disorders of plasma-protein metabolism, not elsewhere classified; D72.819 Decreased white blood cell count, unspecified; Z68.27 Body mass index [BMI] 27.0-27.9, adult; I48.91 Unspecified atrial fibrillation; I25.10 Atherosclerotic heart disease of native coronary artery without angina pectoris; D63.1 Anemia in chronic kidney disease; Z86.73 Personal history of transient ischemic attack (TIA), and cerebral infarction without residual deficits; Z90.49 Acquired absence of other specified parts of digestive tract; Z95.0 Presence of cardiac pacemaker; Z99.2 Dependence on renal dialysis; Z88.8 Allergy status to other drugs, medicaments and biological substances; Z91.030 Bee allergy status; Z79.899 Other long term (current) drug therapy
CPT/HCPCS: 36415; 71045; 80048; 80053; 83735; 83880; 84100; 84484; 85025; 87081; 90935; 90937; 93005; 93306; 94640; 94760; 96361; 96374; 97110-GP; 97116-GP; 99285; G0378; J1644; J1940; J2060; J2270; J2405; J7030; J7613; Q0162

== ENCOUNTER 2023-05-10 09:15 | Emergency (ER) | payer MEDICARE ==
[~2023-05-10] VITALS: Ht 152.4 cm; Wt 80.7 kg
[2023-05-10 09:21] VITALS: BP_SYST 164; PULSE 78; RESP 18; TEMP 98.3; O2SAT 98
[2023-05-10] MEDS ORDERED: DOCUSATE SODIUM 100 MG CAPSULE PO ONE (10:15)
[2023-05-10] MEDS ORDERED: FUROSEMIDE 40 MG/4 ML VIAL IVP ONE (10:15)
[2023-05-10 10:19] LABS: BASOPHILS # (AUTO) 0.1 K/uL (0.0-0.2); BASOPHILS % (AUTO) 0.9 % (0.0-2.0); EOSINOPHILS # (AUTO) 0.2 K/uL (0.0-0.4); EOSINOPHILS % (AUTO) 2.2 % (0.0-4.0); HEMATOCRIT 31.2 % (36-48); HEMOGLOBIN 9.9 g/dL (12.0-16.0); LYMPHOCYTES # (AUTO) 1.4 K/uL (1.0-5.5); MEAN CORPUSCULAR HEMOGLOBIN 31 pg (27-31); MEAN CORPUSCULAR HGB CONC 32 % (32-36); MEAN CORPUSCULAR VOLUME 96 fL (79.0-98.0); MONOCYTES # (AUTO) 0.8 K/uL (0.0-1.0); MONOCYTES % (AUTO) 11.5 % (1.7-9.3); NEUTROPHILS # (AUTO) 4.5 K/uL (1.8-7.7); NEUTROPHILS % (AUTO) 65.4 % (40.0-70.0); PLATELET COUNT (AUTO) 210 K/uL (130-430); RED BLOOD CELL COUNT(AUTO) 3.24 MIL/uL (4.2-6.2); WHITE BLOOD COUNT (AUTO) 6.9 K/uL (4.8-10.8)
[2023-05-10 10:26] LABS: PROTHROMBIN TIME 10.7 SECS (9.5-12.5)
[2023-05-10 11:58] LABS: ALANINE AMINOTRANSFERASE 3 U/L (12-78); ALBUMIN 2.8 g/dL (3.4-4.8); ANION GAP 10 (5-15); ASPARTATE AMINOTRANSFERASE 23 U/L (10-37); CALCIUM 11.4 mg/dL (8.4-11.0); CHLORIDE 96 mmol/L (98-107); CREATININE 4.65 mg/dL (0.55-1.30); GLUCOSE 83 mg/dL (74-106); TOTAL BILIRUBIN 0.4 mg/dL (0.0-1.0); UREA NITROGEN, BLOOD 47 mg/dL (8-21)
[2023-05-10] MEDS ORDERED: MORPHINE 2 MG/ML INJ. SYRINGE IVP ONE (12:00)
[2023-05-10 12:03] LABS: PHOSPHORUS 3.9 mg/dL (2.7-4.5)
[2023-05-10] MEDS ORDERED: PIPERACILLIN/TAZOBACTAM 2.25 GM in NS 50 ML IV ONE (12:15)
[2023-05-10 13:05] VITALS: TEMP 97
[2023-05-10] MEDS ORDERED: CALCIUM GLUC 1 GM/100ML-NACL 100 ML IV ONE (13:15)
[2023-05-10 13:17] LABS: BILIRUBIN,URINE NEGATIVE (NEGATIVE); BLOOD, URINE 3+ (NEGATIVE); CLARITY/URINE TURBID (CLEAR); COLOR,URINE YELLOW (YELLOW); GLUCOSE,URINE NEGATIVE (NEGATIVE); KETONES,URINE NEGATIVE (NEGATIVE); LEUKOCYTE ESTERASE ,URINE 3+ (NEGATIVE); PH,URINE 6.5 (5.0-8.0); PROTEIN URINE 3+ (NEGATIVE)
[2023-05-10 13:18] LABS: NITRITE, URINE NEGATIVE (NEGATIVE); UROBILINOGEN,URINE 0.2 (0.2-1.0)
[2023-05-10 13:19] LABS: BACTERIA,URINE MODERATE /HPF (None Seen); RBC,URINE 20-50 /HPF (0-3); WBC,URINE >100 /HPF (0-3)
[2023-05-10] MEDS ORDERED: PIPERACILLIN/TAZOBACTAM 2.25 GM VIAL IV ONE (13:37)
[2023-05-10] MEDS ORDERED: MORPHINE 2 MG/ML INJ. SYRINGE ONE (15:16)
[2023-05-10 16:35] VITALS: BP_SYST 157; PULSE 81; RESP 18; O2SAT 99
== END 2023-05-10 15:05 | disposition short-term general hospital (02) ==
LOC: SED 09:15
DX: I11.0 Hypertensive heart disease with heart failure (principal); I50.21 Acute systolic (congestive) heart failure; I48.0 Paroxysmal atrial fibrillation; R06.02 Shortness of breath; E87.5 Hyperkalemia; D64.9 Anemia, unspecified; E87.70 Fluid overload, unspecified; I50.9 Heart failure, unspecified; I12.0 Hypertensive chronic kidney disease with stage 5 chronic kidney disease or end stage renal disease; E11.22 Type 2 diabetes mellitus with diabetic chronic kidney disease; N18.6 End stage renal disease; Z79.899 Other long term (current) drug therapy; Z88.1 Allergy status to other antibiotic agents; Z91.030 Bee allergy status; Z20.822 Contact with and (suspected) exposure to COVID-19
CPT/HCPCS: 99285; 96365; 71045; 96375; 96367; 87426; 80053; 81000; 82962; 83880; 83735; 84100; 85025; 85610; 85730; 87040; 87086; 84484; 36415; 93005; 83605; 87804 ×2; J1940; J2543; J2270

== ENCOUNTER 2023-07-02 12:15 | Inpatient (IN) | payer MEDICARE ==
[~2023-07-02] VITALS: Ht 160 cm; Wt 68.9 kg
[2023-07-02 12:22] VITALS: BP_SYST 90; PULSE 67; RESP 20; TEMP 98.3; O2SAT 98
[2023-07-02] MEDS ORDERED: DIPHTH,PERTUSS(ACELL),TET VAC 0.5 ML VIAL (Tdap) I.M. ONE (12:30)
[2023-07-02] MEDS ORDERED: ACETAMINOPHEN 325 MG TABLET PO ONE (12:30)
[2023-07-02] MEDS ORDERED: MORPHINE 2 MG/ML INJ. SYRINGE IVP ONE (12:45)
[2023-07-02] MEDS ORDERED: NITROGLYCERIN 1 INCH (GM) OINT. TD ONE (12:45)
[2023-07-02] MEDS ORDERED: MORPHINE 2 MG/ML INJ. SYRINGE ONE (13:02)
[2023-07-02 13:11] LABS: BASOPHILS # (AUTO) 0.1 K/uL (0.0-0.2); BASOPHILS % (AUTO) 1.1 % (0.0-2.0); EOSINOPHILS # (AUTO) 0.1 K/uL (0.0-0.4); EOSINOPHILS % (AUTO) 1.8 % (0.0-4.0); HEMATOCRIT 31.6 % (36-48); LYMPHOCYTES # (AUTO) 1.1 K/uL (1.0-5.5); LYMPHOCYTES % (AUTO) 18.3 % (20.5-51.5); MEAN CORPUSCULAR HEMOGLOBIN 30 pg (27-31); MEAN CORPUSCULAR HGB CONC 32 % (32-36); MEAN CORPUSCULAR VOLUME 95 fL (79.0-98.0); MONOCYTES # (AUTO) 0.8 K/uL (0.0-1.0); MONOCYTES % (AUTO) 12.3 % (1.7-9.3); NEUTROPHILS # (AUTO) 4.1 K/uL (1.8-7.7); NEUTROPHILS % (AUTO) 66.5 % (40.0-70.0); PLATELET COUNT (AUTO) 201 K/uL (130-430); RED BLOOD CELL COUNT(AUTO) 3.32 MIL/uL (4.2-6.2); RED CELL DISTRIBUTION WIDTH 15.5 % (9.0-15.0); WHITE BLOOD COUNT (AUTO) 6.2 K/uL (4.8-10.8)
[2023-07-02 13:27] LABS: ANION GAP 5 (5-15); CALCIUM 8.4 mg/dL (8.4-11.0); CARBON DIOXIDE 32 mmol/L (23-29); CHLORIDE 100 mmol/L (98-107); CREATININE 4.58 mg/dL (0.55-1.30); GLUCOSE 84 mg/dL (74-106); POTASSIUM 4.7 mmol/L (3.5-5.1); SODIUM SERUM 137 mmol/L (136-145); UREA NITROGEN, BLOOD 36 mg/dL (8-21)
[2023-07-02 13:34] LABS: ALBUMIN 2.5 g/dL (3.4-4.8); ASPARTATE AMINOTRANSFERASE 12 U/L (10-37); TOTAL BILIRUBIN 0.4 mg/dL (0.0-1.0); TOTAL PROTEIN, SERUM 6.3 g/dL (6.4-8.3)
[2023-07-02 14:04] LABS: ALANINE AMINOTRANSFERASE 2 U/L (12-78)
[2023-07-02] MEDS ORDERED: ACETAMINOPHEN 325 MG TABLET PO PRN ×2 (16:00→16:15)
[2023-07-02] MEDS ORDERED: MUPIROCIN 2% TOPICAL OINTMENT 22 GM NS PRN (16:00)
[2023-07-02] MEDS ORDERED: DOCUSATE SODIUM 100 MG CAPSULE PO PRN (16:00)
[2023-07-02] MEDS ORDERED: ZOLPIDEM TARTRATE 5 MG TABLET PO PRN (16:00)
[2023-07-02] MEDS ORDERED: MORPHINE 2 MG/ML INJ. SYRINGE IVP PRN (16:00)
[2023-07-02] MEDS ORDERED: POTASSIUM CHLORIDE 20 MEQ TAB.PRT.SR PO PRN (16:00)
[2023-07-02] MEDS ORDERED: MAGNESIUM SULFATE 50 ML IV PRN (16:00)
[2023-07-02] MEDS ORDERED: ONDANSETRON HCL 4 MG/2 ML VIAL IVP PRN (16:00)
[2023-07-02] MEDS ORDERED: LORazepam 2 MG/ML VIAL IVP PRN (16:00)
[2023-07-02] MEDS ORDERED: NALOXONE HCL 0.4 MG/ML AMP (NARCAN) IVP PRN ×2 (16:00)
[2023-07-02] MEDS: SEVELAMER CARBONATE 800 MG TABLET PO SCH (18:00)
[2023-07-02] MEDS: MORPHINE 2 MG/ML INJ. SYRINGE IVP PRN (18:02)
[2023-07-02] MEDS ORDERED: NITROGLYCERIN 1 INCH (GM) OINT. ONE (18:31)
[2023-07-02 20:00] VITALS: BP_SYST 98; PULSE 75; RESP 17; TEMP 97.7; O2SAT 100
[2023-07-02] MEDS ORDERED: HEPARIN SODIUM,PORCINE 5,000 UNITS/ML VIAL MC ONE (20:30)
[2023-07-02] MEDS ORDERED: LATANOPROST 2.5 ML DROPS (XALATAN) OP SCH (21:00)
[2023-07-02] MEDS: DOCUSATE SODIUM 100 MG CAPSULE PO SCH (21:00)
[2023-07-02] MEDS ORDERED: traZODone HCL 50 MG TABLET (DESYREL) PO SCH (21:00)
[2023-07-02] MEDS ORDERED: ATORVASTATIN 20 MG TABLET PO SCH (21:00)
[2023-07-02] MEDS: hydrALAZINE HCL 10 MG TABLET PO SCH (21:00)
[2023-07-02] MEDS: VENLAFAXINE HCL 50 MG TABLET PO SCH (21:57)
[2023-07-02] MEDS: APIXABAN 2.5 MG TABLET PO SCH (21:58)
[2023-07-02 22:00] VITALS: BP_SYST 110; PULSE 93; RESP 17; O2SAT 100
[2023-07-03] VITALS (17 sets, daily range): BP systolic 97–127; PULSE 77–100; RESP 11–30; TEMP 97–98; O2SAT 95–100
[2023-07-03 05:55] LABS: BASOPHILS % (AUTO) 0.8 % (0.0-2.0); HEMATOCRIT 33.2 % (36-48); HEMOGLOBIN 10.4 g/dL (12.0-16.0); LYMPHOCYTES # (AUTO) 0.9 K/uL (1.0-5.5); LYMPHOCYTES % (AUTO) 14.2 % (20.5-51.5); MEAN CORPUSCULAR HEMOGLOBIN 30 pg (27-31); MEAN CORPUSCULAR HGB CONC 32 % (32-36); MEAN CORPUSCULAR VOLUME 96 fL (79.0-98.0); MONOCYTES # (AUTO) 0.6 K/uL (0.0-1.0); MONOCYTES % (AUTO) 10.2 % (1.7-9.3); NEUTROPHILS # (AUTO) 4.5 K/uL (1.8-7.7); NEUTROPHILS % (AUTO) 74.8 % (40.0-70.0); PLATELET COUNT (AUTO) 195 K/uL (130-430); RED BLOOD CELL COUNT(AUTO) 3.46 MIL/uL (4.2-6.2); RED CELL DISTRIBUTION WIDTH 15.4 % (9.0-15.0); WHITE BLOOD COUNT (AUTO) 6.1 K/uL (4.8-10.8)
[2023-07-03 06:16] LABS: ANION GAP 5 (5-15); CALCIUM 8.5 mg/dL (8.4-11.0); CARBON DIOXIDE 30 mmol/L (23-29); CHLORIDE 98 mmol/L (98-107); CREATININE 3.22 mg/dL (0.55-1.30); GLUCOSE 139 mg/dL (74-106); POTASSIUM 5.5 mmol/L (3.5-5.1); SODIUM SERUM 133 mmol/L (136-145); UREA NITROGEN, BLOOD 23 mg/dL (8-21)
[2023-07-03] MEDS ORDERED: LEVOTHYROXINE SODIUM 0.1 MG TABLET PO SCH (07:00)
[2023-07-03] MEDS ORDERED: SODIUM POLYSTYRENE SULFONATE 15 GM/60 ML UDBTL PO ONE (08:15)
[2023-07-03] MEDS: MORPHINE 2 MG/ML INJ. SYRINGE IVP PRN ×2 (08:24→17:07)
[2023-07-03] MEDS: APIXABAN 2.5 MG TABLET PO SCH (08:44)
[2023-07-03] MEDS: SEVELAMER CARBONATE 800 MG TABLET PO SCH ×3 (08:45→17:07)
[2023-07-03] MEDS: DOCUSATE SODIUM 100 MG CAPSULE PO SCH (08:45)
[2023-07-03] MEDS: hydrALAZINE HCL 10 MG TABLET PO SCH ×2 (08:48→15:00)
[2023-07-03] MEDS: VENLAFAXINE HCL 50 MG TABLET PO SCH (08:48)
[2023-07-03] MEDS ORDERED: DILTIAZEM HCL 180 MG CAP.SR.24H PO SCH (09:00)
[2023-07-03] MEDS ORDERED: FUROSEMIDE 40 MG TABLET PO SCH (09:00)
[2023-07-03] MEDS ORDERED: AMIODARONE HCL 200 MG TABLET PO SCH (09:00)
[2023-07-03] MEDS ORDERED: CINACALCET HCL 30 MG TABLET PO SCH (09:00)
[2023-07-03] MEDS ORDERED: NEPHROVITE, (FOLIC ACID/VITAMIN B COMP W-C 1 TAB) PO SCH (09:00)
== END 2023-07-03 20:40 | disposition short-term general hospital (02) | DRG 291 ==
LOC: SED 12:15 → STU 15:00 → SIC 16:28
PROVIDERS: ADMIT General Practice; ATTEND General Practice
PROC: 5A1D70Z Performance of Urinary Filtration, Intermittent, Less than 6 Hours Per Day (ICD-10-PCS; principal; 2023-07-02)
PROC: 5A1D70Z Performance of Urinary Filtration, Intermittent, Less than 6 Hours Per Day (ICD-10-PCS; 2023-07-03)
DX: I13.2 Hypertensive heart and chronic kidney disease with heart failure and with stage 5 chronic kidney disease, or end stage renal disease (principal); I50.43 Acute on chronic combined systolic (congestive) and diastolic (congestive) heart failure; N17.0 Acute kidney failure with tubular necrosis; N18.6 End stage renal disease; E44.0 Moderate protein-calorie malnutrition; D63.8 Anemia in other chronic diseases classified elsewhere; E03.9 Hypothyroidism, unspecified; E78.00 Pure hypercholesterolemia, unspecified; E11.22 Type 2 diabetes mellitus with diabetic chronic kidney disease; I48.91 Unspecified atrial fibrillation; I25.10 Atherosclerotic heart disease of native coronary artery without angina pectoris; K29.70 Gastritis, unspecified, without bleeding; Z79.01 Long term (current) use of anticoagulants; Z99.3 Dependence on wheelchair; Z99.2 Dependence on renal dialysis; Z95.0 Presence of cardiac pacemaker; Z86.73 Personal history of transient ischemic attack (TIA), and cerebral infarction without residual deficits; Z68.26 Body mass index [BMI] 26.0-26.9, adult
CPT/HCPCS: 36415; 71045; 80048; 80053; 83037; 83735; 83880; 84484; 85025; 90715; 90935; 90937; 93005; 96374; 99285; J1644; J2060; J2270; J7030